=== PATIENT | female | born 1930 | race African-American/Black ===

== ENCOUNTER 2018-04-17 01:44 | Inpatient (IN) | payer MEDICARE ==
[2018-04-17] VITALS (7 sets, daily range): BP systolic 98–165; BP diastolic 54–91
[~2018-04-17] VITALS: Ht 157.5 cm; Wt 38.6 kg
[~2018-04-17 01:44] MED LIST: ATIVAN1 MG ORAL; BUPROPION XL150 MG ORAL; BUPROPION XL300 MG ORAL
--- NOTE | 2018-04-17 01:48 | NUR ---
ED Nurse Note: Patient presents with complaints of syncope wile attempting to move her bowels.
[2018-04-17 02:07] LABS: BASOPHILS % (AUTO) 0.4 % (0.0-2.0); EOSINOPHILS % (AUTO) 0.4 % (0.0-3.0); HEMATOCRIT 51.5 % (37.0-47.0); HEMOGLOBIN 17.2 G/DL (12.0-16.0); LYMPHOCYTES % (AUTO) 26.4 % (20.0-45.0); MEAN CORPUSCULAR VOLUME 98 FL (80-99); MONOCYTES % (AUTO) 5.8 % (1.0-10.0); NEUTROPHILS % (AUTO) 66.9 % (45.0-75.0); PLATELET COUNT 172 K/UL (150-450); RED BLOOD COUNT 5.26 M/UL (4.20-5.40); WHITE BLOOD COUNT 10.8 K/UL (4.8-10.8)
[2018-04-17 02:19] LABS: ANION GAP 10 mmol/L (5-15); BLOOD UREA NITROGEN 33 mg/dL (7-18); CALCIUM 10.2 MG/DL (8.5-10.1); CARBON DIOXIDE 31 MMOL/L (21-32); CHLORIDE 108 MMOL/L (98-107); CREATININE 1.3 MG/DL (0.55-1.30); POTASSIUM 3.7 MMOL/L (3.5-5.1); SODIUM 149 MMOL/L (136-145)
--- NOTE | 2018-04-17 02:20 | NUR ---
ED Nurse Note: Patient restinf comfortably, fluid running, no s/s of acute distress.
[2018-04-17 02:32] LABS: ALANINE AMINOTRANSFERASE 42 U/L (12-78); ALBUMIN 3.4 G/DL (3.4-5.0); ALBUMIN/GLOBULIN RATIO 0.9 (1.0-2.7); ALKALINE PHOSPHATASE 94 U/L (46-116); ASPARTATE AMINO TRANSFERASE 43 U/L (15-37); CKMB 0.9 NG/ML (0.0-3.6); CREATINE KINASE 44 U/L (26-308)
--- NOTE | 2018-04-17 02:35 | NUR ---
ED Nurse Note: ERMD notified regarding pt's critical lab troponin I 0.164
--- NOTE | 2018-04-17 03:02 | NUR ---
ED Nurse Note: urine collected via straight catheter. Patient resting comfortably.
[2018-04-17 03:24] LABS: INR 1.3 (0.9-1.1)
[2018-04-17 03:27] LABS: APPEARANCE,URINE CLEAR; COLOR,URINE BROWN
[2018-04-17 03:28] LABS: BILIRUBIN, URINE NEGATIVE (NEGATIVE); GLUCOSE, URINE (UA) NEGATIVE (NEGATIVE); KETONES,URINE 1+ (NEGATIVE); LEUKOCYTE ESTERASE ,URINE 1+ (NEGATIVE); NITRITE,URINE NEGATIVE (NEGATIVE); PROTEIN,URINE 2+ (NEGATIVE); UROBILINOGEN,URINE 1 MG/DL (0.0-1.0)
--- NOTE | 2018-04-17 03:28 | NUR ---
ED Nurse Note: Patient going down for CT.
--- NOTE | 2018-04-17 03:45 | NUR ---
ED Nurse Note: Patient returned from CT.
[2018-04-17] MEDS ORDERED: MIRTAZAPINE7.5 MG ORAL (03:52)
[2018-04-17] MEDS ORDERED: XARELTO10 MG ORAL (03:52)
[2018-04-17] MEDS ORDERED: HYDROXYCHLOROQ200 M1 PO (03:52)
[2018-04-17] MEDS ORDERED: EXELON4.6 MG TD (03:52)
[2018-04-17] MEDS ORDERED: NAMENDA10 MG ORAL (03:57)
--- NOTE | 2018-04-17 04:30 | Emergency Room Report ---
History of Present Illness General Chief Complaint: Syncope Source: Patient, Family Member, EMS Present Illness HPI 87-year-old female presents ED for evaluation. Patient presents status post syncopal episode. Brought in by EMS. Per EMS patient had syncopal episode while on the toilet tonight. Witnessed by daughter who was with patient during episode. States that patient passed out and she assisted patient to the ground. Upon arrival patient does not remember what happened. Denies chest pain or shortness of breath. States she feels thirsty. Denies fevers chills. Daughter notes patient has history of dementia. No other aggravating relieving factors. Denies any other associated symptoms Allergies: Uncoded Allergies: PENICILLIN (Allergy, Unknown, 04/17/18) Patient History Past Medical History: DM Past Surgical History: none Pertinent Family History: none Social History: Denies: smoking, alcohol use, drug use Last Menstrual Period: 4 decades ago Now: No Immunizations: UTD Reviewed Nursing Documentation: PMH: Agreed; PSxH: Agreed Nursing Documentation-PMH History Of Psychiatric Problem: Yes - dementia Review of Systems All Other Systems: negative except mentioned in HPI Physical Exam Vital Signs Date Time Temp Pulse Resp B/P (MAP) Pulse Ox O2 Delivery O2 Flow Rate FiO2 04/17/18 01:30 98.6 90 22 125/85 100 Room Air Sp02 EP Interpretation: reviewed, normal General Appearance: no apparent distress, alert, GCS 15, non-toxic, thin Head: normocephalic, atraumatic Eyes: bilateral eye normal inspection, bilateral eye PERRL ENT: hearing grossly normal, normal pharynx, no angioedema, normal voice Neck: full range of motion, supple/symm/no masses Respiratory: chest non-tender, lungs clear, normal breath sounds, speaking full sentences Cardiovascular #1: regular rate, rhythm, no edema Cardiovascular #2: 2+ carotid (R), 2+ carotid (L), 2+ radial (R), 2+ radial (L) , 2+ dorsalis pedis (R), 2+ dorsalis pedis (L) Gastrointestinal: normal bowel sounds, non tender, soft, non-distended, no guarding, no rebound Rectal: deferred Genitourinary: normal inspection, no CVA tenderness Musculoskeletal: back normal, gait/station normal, normal range of motion, non- tender Neurologic: alert, oriented x3, responsive, motor strength/tone normal, sensory intact, speech normal Psychiatric: judgement/insight normal, memory normal, mood/affect normal, no suicidal/homicidal ideation Reflexes: 3+ bicep (R), 3+ bicep (L), 3+ tricep (R), 3+ tricep (L), 3+ knee (R) , 3+ knee (L) Skin: normal color, no rash, warm/dry, well hydrated Lymphatic: no adenopathy Medical Decision Making Diagnostic Impression: Primary Impression: Syncope Qualified Codes: R55 - Syncope and collapse Additional Impression: Dehydration ER Course Hospital Course 87-year-old F presents ED s/p syncopal episode. Differential diagnoses include: AK/unstable angina, arrythmia, dehydration, CVA/ TIA Clinical course Patient placed on stretcher. on ekg monitor. After initial history and physical I ordered labs, EKG, chest x-ray, IVFs, CT Brain labs reviewed- no leukocytosis, hemoglobin/hematocrit ok, Na 149, BUN elevated, trop 0.164, UA negative EKG- NSR, no acute ischemic changes interpreted by me Chest x-ray- no acute process CT brain-unremarkable I spoke to daughter on phone. States patient has history of dementia and is on Xarelto for clotting deficiency Case discussed with Dr. Viveros and he agreed to accept the patient to his service for further care and support I. I feel this is a highly complex case requiring extensive working including EKG/Rhythm strip, Xray/CT/US, Blood/urine lab work, repeat exams while in ED, and administration of strong opiates/narcotics for pain control, admission to hospital or close patient follow up. Diagnosis - syncope, dehydration admitted to telemetry in serious condition Labs Test 04/17/18 01:50 04/17/18 01:58 04/17/18 03:00 White Blood Count 10.8 K/UL (4.8-10.8) Red Blood Count 5.26 M/UL (4.20-5.40) Hemoglobin 17.2 G/DL (12.0-16.0) Hematocrit 51.5 % (37.0-47.0) Mean Corpuscular Volume 98 FL (80-99) Mean Corpuscular Hemoglobin 32.6 PG (27.0-31.0) Mean Corpuscular Hemoglobin Concent 33.3 G/DL (32.0-36.0) Red Cell Distribution Width 13.0 % (11.6-14.8) Platelet Count 172 K/UL (150-450) Mean Platelet Volume 6.2 FL (6.5-10.1) Neutrophils (%) (Auto) 66.9 % (45.0-75.0) Lymphocytes (%) (Auto) 26.4 % (20.0-45.0) Monocytes (%) (Auto) 5.8 % (1.0-10.0) Eosinophils (%) (Auto) 0.4 % (0.0-3.0) Basophils (%) (Auto) 0.4 % (0.0-2.0) Sodium Level 149 MMOL/L (136-145) Potassium Level 3.7 MMOL/L (3.5-5.1) Chloride Level 108 MMOL/L (98-107) Carbon Dioxide Level 31 MMOL/L (21-32) Anion Gap 10 mmol/L (5-15) Blood Urea Nitrogen 33 mg/dL (7-18) Creatinine 1.3 MG/DL (0.55-1.30) Estimat Glomerular Filtration Rate mL/min (>60) Glucose Level 114 MG/DL (74-106) Calcium Level 10.2 MG/DL (8.5-10.1) Total Bilirubin 1.0 MG/DL (0.2-1.0) Aspartate Amino Transf (AST/SGOT) 43 U/L (15-37) Alanine Aminotransferase (ALT/SGPT) 42 U/L (12-78) Alkaline Phosphatase 94 U/L (46-116) Total Creatine Kinase 44 U/L (26-308) Creatine Kinase MB 0.9 NG/ML (0.0-3.6) Creatine Kinase MB Relative Index 2.0 Troponin I 0.164 ng/mL (0.000-0.056) Pro-B-Type Natriuretic Peptide 3203 pg/mL (0-125) Total Protein 7.1 G/DL (6.4-8.2) Albumin 3.4 G/DL (3.4-5.0) Globulin 3.7 g/dL Albumin/Globulin Ratio 0.9 (1.0-2.7) Prothrombin Time 13.4 SEC (9.30-11.50) Prothromb Time International Ratio 1.3 (0.9-1.1) Activated Partial Thromboplast Time 30 SEC (23-33) Urine Color Brown Urine Appearance Clear Urine pH 5.0 (4.5-8.0) Urine Specific [place] 1.025 (1.005-1.035) Urine Protein 2+ (NEGATIVE) Urine Glucose (UA) Negative (NEGATIVE) Urine Ketones 1+ (NEGATIVE) Urine Blood 1+ (NEGATIVE) Urine Nitrite Negative (NEGATIVE) Urine Bilirubin Negative (NEGATIVE) Urine Urobilinogen 1 MG/DL (0.0-1.0) Urine Leukocyte Esterase 1+ (NEGATIVE) Urine RBC 0-2 /HPF (0 - 2) Urine WBC 0-2 /HPF (0 - 2) Urine Squamous Epithelial Cells Occasional /LPF Urine Bacteria None /HPF (NONE) EKG Diagnostic Results Rate: normal Rhythm: NSR ST Segments: no acute changes ASA given to the pt in ED: No Rhythm Strip Diag. Results EP Interpretation: yes Rhythm: NSR, no PVC's, no ectopy Chest X-Ray Diagnostic Results Chest X-Ray Diagnostic Results : Chest X-Ray Ordered: Yes # of Views/Limited/Complete: 1 View Indication: Other EP Interpretation: Yes Interpretation: no consolidation, no effusion, no pneumothorax, no acute cardiopulmonary disease Impression: No acute disease Electronically Signed by: Electronically signed by Yash Nava MD CT/MRI/US Diagnostic Results CT/MRI/US Diagnostic Results : Imaging Test Ordered: CT Head Impression no acute process Last Vital Signs Date Time Temp Pulse Resp B/P (MAP) Pulse Ox O2 Delivery O2 Flow Rate FiO2 04/17/18 02:18 98.6 81 21 154/80 100 Room Air Status: improved Disposition: ADMITTED INPATIENT Condition: Serious Referrals: NOT CHOSEN IPA/,REFERRING (PCP) Yash Nava MD Apr 17, 2018 04:30
--- NOTE | 2018-04-17 04:35 | NUR ---
ED Nurse Note: Patient cleared for transport to tele by DIANN, patient is awake and alert, oriented x1. Report was givent to Sharan ADAMS prior to transport.
--- NOTE | 2018-04-17 05:15 | NUR ---
NURSE NOTES: Received pt from ED via gurney. Pt is awake, AOx1. In no acute distress. IV line intact and patent. Placed on cardiac sonographer showing SR. Oriented pt to room and unit. VS stable. Denies any pain or discomfort. Bed in lowest position, call light within reach.
--- NOTE | 2018-04-17 07:20 | NUR ---
HAND-OFF: Report given to BRYAN Vera.
--- NOTE | 2018-04-17 08:55 | NUR ---
NURSE NOTES: Pt in bed in rt lateral in low position, bed alarm on, HOB in semifowlers, IV intact and locked, pt X1 but not aware of date, time or situation, Md Viveros aware of patient on unit, pt knows limitations, pt on room air, bed locked call light at bedside, no s/s of distress or SOB noted.
[2018-04-17] MEDS ORDERED: Mylanta II UD 30ml ORAL PRN (09:15)
[2018-04-17] MEDS ORDERED: Morphine Sulfate 2mg/ml Inj(IV/IM USE ONLY) IVP PRN (09:15)
[2018-04-17] MEDS ORDERED: Nitroglycerin Subl 0.4mg tab SL PRN (09:15)
[2018-04-17] MEDS ORDERED: Albuterol/Ipratropium 3ml neb HHN PRN (09:15)
[2018-04-17] MEDS ORDERED: LORazepam Inj 2mg/ml 1ml IV PRN (09:15)
[2018-04-17] MEDS: Memantine 10mg tab ORAL SCH (10:26)
[2018-04-17] MEDS: Xarelto 15mg tab ORAL SCH (10:27)
--- NOTE | 2018-04-17 11:03 | NUR ---
CASE MANAGEMENT: INITIAL REVIEW 04/17/2018 87 YO F KRISTEN FROM HOME CC: SYNCOPE PMHx: DM. DEMENTIA. SI:SYNCOPE. DEHYDRATION. T 98.6 HR 90 RR 22 B/P 125/85 SATS 100% ON RA NA 149 CL 108 BUN 33 GLU 114 CA 10.2 AST 43 TROPONIN 0.164 BNP 3203 IS: NS BOLUS X1 PATIENT ADMITTED TO TELE 04/17/2018 @ 0300 DCP: PATIENT DISCHARGED TO HOME ONCE MEDICALLY CLEARED. PLAN OF CARE: PT EVAL 2D ECHO CAROTID- VERTEBRAL DUPLEX Addendum: 04/18/18 at 1541 by CHRISTINA MARSH LVN LVN INTERQUAL CRITERIA MET
[2018-04-17] MEDS: BuPROPion XL 300mg tab ORAL SCH (11:11)
[2018-04-17] MEDS ORDERED: HydrALAZINE 25mg tab ORAL PRN (14:45)
--- NOTE | 2018-04-17 14:45 | History and Physical Report ---
DATE OF ADMISSION: 04/17/2018 DATE AND TIME SEEN: On 04/17/2018 at 8 a.m. CONSULTANTS: 1. Mark Bajwa M.D. 2. Amirah Veliz M.D. 3. Yunior Rasheed M.D. 4. Sebastian Mullen M.D. 5. Giorgi Joyner M.D. CHIEF COMPLAINT: Syncope and dehydration. BRIEF HISTORY: This is an 87-year-old female, who lives at home, presents to [facility] with history of possible syncopal episode, with elevated troponin. The patient was admitted to telemetry for further care. Currently, slightly confused in bed. No complaint. REVIEW OF SYSTEMS: No chest pain. No shortness of breath. No nausea, vomiting, or diarrhea. PAST MEDICAL HISTORY: Include, she stated nothing. PAST SURGICAL HISTORY: None. MEDICATIONS: Include Zofran, Tylenol, and IV fluids. ALLERGIES: Penicillin. SOCIAL HISTORY: No smoking. No alcohol. No intravenous drug abuse. FAMILY HISTORY: Noncontributory. PHYSICAL EXAMINATION: GENERAL: Calm in bed, oriented x2, in no acute distress. VITAL SIGNS: Temperature 97, pulse 83, respirations 18, and blood pressure 158/86. CARDIOVASCULAR: No murmur. LUNGS: Distant and clear. ABDOMEN: Bowel sounds positive. Nontender. Nondistended. EXTREMITIES: No cyanosis or edema. NEUROLOGIC: The patient moves all extremities, slightly weak. LABORATORY AND DIAGNOSTIC DATA: Labs at this time show hemoglobin and hematocrit 17/51, otherwise CBC is normal. BMP shows sodium 149, chloride 108, BUN 33, glucose 114. Troponin elevated 0.164. BNP is 3203. INR is 1.3 and PTT is 30. Urinalysis show 1+ leukocyte esterase. ASSESSMENT: 1. Possible syncope. 2. UTI. 3. Dehydration. 4. Elevated troponins. PLAN: 1. Troponin q. 8h. x3. 2. EKG in a.m. 3. Cardiology and Neurology evaluation. 4. Antibiotic per Infectious Disease. 5. PT and Dietary evaluation. 6. CBC and BMP in the morning. Brad Viveros D.O. DR: JESSE JOB#: [id number] CC:
--- NOTE | 2018-04-17 14:49 | Consultation ---
Consult Note Consult Note asked to eval for renal failure and electrolyte imbalance and fluid management Chief Complaint: Syncope 87-year-old female presents ED for evaluation. Patient presents status post syncopal episode. Brought in by EMS. Per EMS patient had syncopal episode while on the toilet tonight. Witnessed by daughter who was with patient during episode. States that patient passed out and she assisted patient to the ground. Upon arrival patient does not remember what happened. Denies chest pain or shortness of breath. States she feels thirsty. Denies fevers chills. Daughter notes patient has history of dementia. No other aggravating relieving factors. Denies any other associated symptoms Allergies: PENICILLIN (Allergy, Unknown, 04/17/18) Past Medical History: DM History Of Psychiatric Problem: Yes - dementia , Psych disease examined data reviewed . Assessment/Plan Dehydration- Syncope - Acute on chronic encephalopathy elevated troponin high Hgb due to hemoconcentration Hydrate- adjust mind altering meds Monitor lytes and renal parameters Gastric mucosa support Per orders Sebastian Mullen MD Apr 17, 2018 14:49
--- NOTE | 2018-04-17 14:50 | Consultation ---
History of Present Illness General Date patient seen: Apr 17, 2018 Chief Complaint: Syncope Present Illness HPI 87-year-old female with hx of DM presented to ED for evaluation of an syncopal episode while on the toilet. Witnessed by daughter who was with patient during episode. She denies chest pain or shortness of breath. she is admitted to telemetry for further work up. Allergies: Coded Allergies: PENICILLINS (Verified Allergy, Unknown, 04/17/18) Uncoded Allergies: PENICILLIN (Allergy, Unknown, 04/17/18) Medication History Scheduled Bupropion Hcl* (Wellbutrin*), 300 MG ORAL DAILY, (Reported) Bupropion Xl* (Bupropion Xl*), 150 MG ORAL Q24H, (Reported) Lorazepam* (Ativan*), 1 MG ORAL BEDTIME, (Reported) Memantine Hcl* (Namenda*), 10 MG ORAL DAILY, (Reported) Mirtazapine* (Mirtazapine*), 7.5 MG ORAL BEDTIME, (Reported) Rivaroxaban (Xarelto*), 15 MG ORAL DAILY, (Reported) Rivastigmine Tartrate (Exelon), 4.6 MG TD DAILY, (Reported) Miscellaneous Medications Hydroxychloroquine Sulfate (Hydroxychloroquine Sulfate), 200 MG PO, (Reported) Patient History Healthcare decision maker Resuscitation status Full Code Advanced Directive on File Past Medical/Surgical History Past Medical/Surgical History: (1) Diabetes mellitus Review of Systems All Other Systems: negative except mentioned in HPI Physical Exam General Appearance: WD/WN, no apparent distress Lines, tubes and drains: peripheral HEENT: normocephalic, atraumatic Neck: non-tender, normal alignment Respiratory/Chest: chest wall non-tender, lungs clear, normal breath sounds Cardiovascular/Chest: normal peripheral pulses Abdomen: normal bowel sounds Last 24 Hour Vital Signs Date Time Temp Pulse Resp B/P (MAP) Pulse Ox O2 Delivery O2 Flow Rate FiO2 04/17/18 12:00 98.3 91 18 121/76 (91) 99 04/17/18 11:43 96.8 04/17/18 10:25 165/91 04/17/18 09:05 Room Air 04/17/18 08:20 98.1 87 16 165/91 (115) 99 04/17/18 07:57 88 04/17/18 05:42 Room Air 04/17/18 05:05 97.5 83 18 158/86 (110) 100 04/17/18 04:35 98.6 81 21 154/80 100 Room Air 04/17/18 02:18 98.6 81 21 154/80 100 Room Air 04/17/18 01:59 98.6 75 22 125/85 100 Room Air 04/17/18 01:30 98.6 90 22 125/85 100 Room Air Intake and Output 04/16/18 04/17/18 19:00 07:00 Intake Total 0 ml Balance 0 ml Intake Oral 0 ml Laboratory Tests Test 04/17/18 01:50 04/17/18 01:58 04/17/18 03:00 White Blood Count 10.8 K/UL (4.8-10.8) Red Blood Count 5.26 M/UL (4.20-5.40) Hemoglobin 17.2 G/DL (12.0-16.0) H Hematocrit 51.5 % (37.0-47.0) H Mean Corpuscular Volume 98 FL (80-99) Mean Corpuscular Hemoglobin 32.6 PG (27.0-31.0) H Mean Corpuscular Hemoglobin Concent 33.3 G/DL (32.0-36.0) Red Cell Distribution Width 13.0 % (11.6-14.8) Platelet Count 172 K/UL (150-450) Mean Platelet Volume 6.2 FL (6.5-10.1) L Neutrophils (%) (Auto) 66.9 % (45.0-75.0) Lymphocytes (%) (Auto) 26.4 % (20.0-45.0) Monocytes (%) (Auto) 5.8 % (1.0-10.0) Eosinophils (%) (Auto) 0.4 % (0.0-3.0) Basophils (%) (Auto) 0.4 % (0.0-2.0) Sodium Level 149 MMOL/L (136-145) H Potassium Level 3.7 MMOL/L (3.5-5.1) Chloride Level 108 MMOL/L (98-107) H Carbon Dioxide Level 31 MMOL/L (21-32) Anion Gap 10 mmol/L (5-15) Blood Urea Nitrogen 33 mg/dL (7-18) H Creatinine 1.3 MG/DL (0.55-1.30) Estimat Glomerular Filtration Rate mL/min (>60) Glucose Level 114 MG/DL (74-106) H Calcium Level 10.2 MG/DL (8.5-10.1) H Total Bilirubin 1.0 MG/DL (0.2-1.0) Aspartate Amino Transf (AST/SGOT) 43 U/L (15-37) H Alanine Aminotransferase (ALT/SGPT) 42 U/L (12-78) Alkaline Phosphatase 94 U/L (46-116) Total Creatine Kinase 44 U/L (26-308) Creatine Kinase MB 0.9 NG/ML (0.0-3.6) Creatine Kinase MB Relative Index 2.0 Troponin I 0.164 ng/mL (0.000-0.056) Pro-B-Type Natriuretic Peptide 3203 pg/mL (0-125) H Total Protein 7.1 G/DL (6.4-8.2) Albumin 3.4 G/DL (3.4-5.0) Globulin 3.7 g/dL Albumin/Globulin Ratio 0.9 (1.0-2.7) L Prothrombin Time 13.4 SEC (9.30-11.50) H Prothromb Time International Ratio 1.3 (0.9-1.1) H Activated Partial Thromboplast Time 30 SEC (23-33) Urine Color Brown Urine Appearance Clear Urine pH 5.0 (4.5-8.0) Urine Specific [place] 1.025 (1.005-1.035) Urine Protein 2+ (NEGATIVE) H Urine Glucose (UA) Negative (NEGATIVE) Urine Ketones 1+ (NEGATIVE) H Urine Blood 1+ (NEGATIVE) H Urine Nitrite Negative (NEGATIVE) Urine Bilirubin Negative (NEGATIVE) Urine Urobilinogen 1 MG/DL (0.0-1.0) H Urine Leukocyte Esterase 1+ (NEGATIVE) H Urine RBC 0-2 /HPF (0 - 2) Urine WBC 0-2 /HPF (0 - 2) Urine Squamous Epithelial Cells Occasional /LPF Urine Bacteria None /HPF (NONE) Height (Feet): 5 Height (Inches): 2.00 Weight (Pounds): 85 Medications Current Medications Medications (Trade) Dose Ordered Sig/Zan Route PRN Reason Start Time Stop Time Status Last Admin Dose Admin Acetaminophen (Tylenol) 650 mg Q4H PRN ORAL T>100.5 04/17/18 09:15 05/17/18 09:14 04/17/18 11:13 Al Hydroxide/Mg Hydroxide (Mylanta II) 30 ml Q6H PRN ORAL dyspepsia 04/17/18 09:15 05/17/18 09:14 Albuterol/ Ipratropium (Albuterol/ Ipratropium) 3 ml Q4H PRN HHN Shortness of Breath 04/17/18 09:15 04/22/18 09:14 Bupropion HCl (Wellbutrin XL) 300 mg DAILY ORAL 04/17/18 11:00 05/17/18 10:59 04/17/18 11:11 Clonidine HCl (Catapres Tab) 0.1 mg Q4H PRN ORAL SBP > 160mmHg 04/17/18 09:15 05/17/18 09:14 04/17/18 10:25 Dextrose (Dextrose 50%) 25 ml Q30M PRN IV Hypoglycemia 04/17/18 09:15 05/17/18 09:14 Dextrose (Dextrose 50%) 50 ml Q30M PRN IV Hypoglycemia 04/17/18 09:15 05/17/18 09:14 Lorazepam (Ativan 2mg/ml 1ml) 0.5 mg Q4H PRN IV For Anxiety 04/17/18 09:15 04/24/18 09:14 Memantine (Namenda) 10 mg DAILY ORAL 04/17/18 09:00 05/17/18 08:59 04/17/18 10:26 Mirtazapine (Remeron) 7.5 mg BEDTIME ORAL 04/17/18 21:00 05/17/18 20:59 Morphine Sulfate (Morphine Sulfate) 1 mg Q4H PRN IVP Severe Pain (Pain Scale 7-10) 04/17/18 09:15 04/24/18 09:14 Nitroglycerin (Ntg) 0.4 mg Q5M X 3 DOSES PRN SL Prn Chest Pain 04/17/18 09:15 05/17/18 09:14 Ondansetron HCl (Zofran) 4 mg Q6H PRN IVP Nausea & Vomiting 04/17/18 09:15 05/17/18 09:14 Polyethylene Glycol (Miralax) 17 gm HSPRN PRN ORAL Constipation 04/17/18 21:00 05/17/18 20:59 Rivaroxaban (Xarelto) 15 mg DAILY ORAL 04/17/18 10:00 05/17/18 09:59 04/17/18 10:27 Temazepam (Restoril) 15 mg HSPRN PRN ORAL Insomnia 04/17/18 21:00 04/24/18 20:59 Assessment/Plan Problem List: (1) ACS (acute coronary syndrome) ICD Codes: I24.9 - Acute ischemic heart disease, unspecified SNOMED: 198743854 (2) Hypernatremia ICD Codes: E87.0 - Hyperosmolality and hypernatremia SNOMED: 13255908 (3) Acute encephalopathy ICD Codes: G93.40 - Encephalopathy, unspecified SNOMED: 24155016, 842664605 (4) Diabetes mellitus ICD Codes: E11.9 - Type 2 diabetes mellitus without complications SNOMED: 95066762 Assessment/Plan echo cardiogram serial troponin, keep telemetry watch Na IV fluids Amirah Veliz MD Apr 17, 2018 14:50
[2018-04-17] MEDS: Nitroglycerin Patch 0.4mg TDERMAL SCH (15:32)
[2018-04-17] MEDS: D5 1/2NS w/KCl 20mEq 1,000 ML IV SCH (15:33)
--- NOTE | 2018-04-17 16:28 | NUR ---
NURSE NOTES: Daughter Memo Cavazos asking for SNF placement and gave copies of Power of [employer].
--- NOTE | 2018-04-17 19:15 | NUR ---
NURSE NOTES: Report received from Monae Hills RN. Pt is resting in bed w/o distress. Bed alarm on, bed in lowest position, side rails up x2, and breaks are engaged. IV is leaking, new IV insertion will be given later. Endorsed that pt had no urine out since 434. Bladder has not been scanned. Will scan soon. Will follow plans of care. Addendum: 04/18/18 at 0306 by ORIANA RODRIGUEZ RN At 2100, 2300 on 04-17-2018, and now, Pt refused to have IV insertion by saying "Don't bother me." and very combative to the care. A&O x1, confused. Pt will be reaccessed later. Addendum: 04/18/18 at 0520 by ORIANA RODRIGUEZ RN Tele monitor #[id number] was off from pt and retuned to station.
--- NOTE | 2018-04-17 19:22 | NUR ---
HAND-OFF: Report given to sonali Carrillo Rn.
[2018-04-17] MEDS ORDERED: Miralax 17gm pkt ORAL PRN (21:00)
--- NOTE | 2018-04-17 22:30 | NUR ---
NURSE NOTES: Pt has 224ml per bladder scanner. Called and left message to Dr. Viveros at , #0 regarding no urine out put since 429 until 2229, and 224ml per bladder scanner. Awaiting call back. Addendum: 04/18/18 at 0008 by ORIANA RODRIGUEZ RN Second attempted call made to Dr. Viveros at 2330, 04-17-2018, awaiting call back. Addendum: 04/18/18 at 0048 by ORIANA RODRIGUEZ RN Called and left message to Dr. Veliz at , regarding no urine out put since 429 until now, and 224ml per bladder scanner. Awaiting call back. Addendum: 04/18/18 at 0138 by ORIANA RODRIGUEZ RN Pt is wet, bladder scan showed 78ml. Pt is cleaned, dried, and repositioned. Will continue to monitor. Addendum: 04/18/18 at 0241 by ORIANA RODRIGUEZ RN Dr. Viveros called back, and update was given to him. NNO.
[2018-04-18] VITALS: BP 100/66
[2018-04-18 04:00] VITALS: BP 149/80
[2018-04-18] MEDS: D5 1/2NS w/KCl 20mEq 1,000 ML IV SCH ×2 (04:50→16:11)
--- NOTE | 2018-04-18 04:50 | NUR ---
NURSE NOTES: New IV was given, 22G at LFA, D5 1/2 NS w/ KCL 20 meq is running at 75/H. Addendum: 04/18/18 at 0521 by ORIANA RODRIGUEZ RN Pt's Room change to 211-2.
--- NOTE | 2018-04-18 07:10 | NUR ---
HAND-OFF: Report given to BRYAN Mcfadden. Observed that pt is touching and scratching the IV site and the IV site is swollen and IV insertion removed from LFA, no bleeding. The arm is elevated by pillow support. Pt refused to have new IV insertion at this time.Pt is confused, A&O x1.
--- NOTE | 2018-04-18 07:15 | NUR ---
NURSE NOTES: Report received from Vanessa ADAMS.Pt resting in bed awake,confused,noted no distress or discomfort,IV site to LAC infiltrated and swollen, IV removed,skin warm and dry,pt incontinent of urine,SR up x3 HOB elevated bed lock in lowest position,bed alarm on,will continue with plans of care.
[2018-04-18 08:00] VITALS: BP_SYST 149; BP_SYST 172; BP_DIAS 80; BP_DIAS 92
[2018-04-18] MEDS: Xarelto 15mg tab ORAL SCH (09:09)
[2018-04-18] MEDS: Aspirin Baby 81mg ORAL SCH (09:10)
[2018-04-18] MEDS: Memantine 10mg tab ORAL SCH (09:11)
[2018-04-18] MEDS: BuPROPion XL 300mg tab ORAL SCH (09:12)
--- NOTE | 2018-04-18 09:36 | NUR ---
REHAB MED PT NOTE CONSULT BDUDY GARCIA, PATIENT REFUSING CONTINUED CARE, PATIENT STATES SHE IS FINE AND NEEDS NO HELP. RECOMMEND SNF AT [place]. NO FURTHER NEEDS JESSICA REY PT DPT Addendum: 04/18/18 at 0936 by JESSICA REY PT Amended: Links added.
--- NOTE | 2018-04-18 10:28 | Cardiology Report ---
APPROVED REPORT EXAM: Two-dimensional and M-mode echocardiogram with Doppler and color Doppler. INDICATION Left ventricular function M-Mode DIMENSIONS IVSd1.5 (0.7-1.1cm)Left Atrium (MM)4.0 (1.6-4.0cm) LVDd2.8 (3.5-5.6cm)Aortic Root3.1 (2.0-3.7cm) PWd0.8 (0.7-1.1cm)Aortic Cusp Exc.1.6 (1.5-2.0cm) LVDs2.0 (2.5-4.0cm) PWs1.5 cm Normal left ventricular chamber size, systolic function and wall motion. Left ventricular ejection fraction estimated to be 55 %. Mild left ventricular hypertrophy. No evidence of pericardial effusion. All other cardiac chamber sizes are within normal limits. Focal aortic valve sclerosis with adequate cusp excursion. Mildly thickened mitral valve leaflets with normal excursion. Mild mitral annulus and aortic root calcification. Pulmonic valve not well visualized. Normal tricuspid valve structure. IVC is normal in size with physiological collapse. Probable pacemaker wire present in the right side chambers. A color flow and spectral Doppler study was performed and revealed: Mild aortic insufficiency. Trace mitral regurgitation. Mitral diastolic velocities suggest mild left ventricular diastolic dysfunction (Grade I). Moderate tricuspid regurgitation. Tricuspid systolic velocities suggests peak right ventricular systolic pressure of 44 mmHg, consistent with mild pulmonary hypertension. No pulmonic regurgitation present.
[2018-04-18 12:00] VITALS: BP 121/62
[2018-04-18 12:24] LABS: BASOPHILS % (AUTO) 0.8 % (0.0-2.0); HEMATOCRIT 46.8 % (37.0-47.0); HEMOGLOBIN 15.4 G/DL (12.0-16.0); LYMPHOCYTES % (AUTO) 31.5 % (20.0-45.0); MEAN CORPUSCULAR VOLUME 98 FL (80-99); NEUTROPHILS % (AUTO) 60.7 % (45.0-75.0); PLATELET COUNT 133 K/UL (150-450); RED BLOOD COUNT 4.77 M/UL (4.20-5.40); RED CELL DISTRIBUTION WIDTH 12.9 % (11.6-14.8); WHITE BLOOD COUNT 9.4 K/UL (4.8-10.8)
--- NOTE | 2018-04-18 12:25 | Pulmonology Progress Note ---
Assessment/Plan Problems: (1) ACS (acute coronary syndrome) (2) Hypernatremia (3) Acute encephalopathy (4) Diabetes mellitus Assessment/Plan doing better, not talking echo reviewed, normal EF Na slightly high continue IV fluids calorie count. dvt prophylaxis. Subjective ROS Limited/Unobtainable: No Constitutional: Reports: no symptoms HEENT: Repors: no symptoms Respiratory: Reports: no symptoms Allergies: Coded Allergies: PENICILLINS (Verified Allergy, Unknown, 04/17/18) Uncoded Allergies: PENICILLIN (Allergy, Unknown, 04/17/18) Objective Last 24 Hour Vital Signs Date Time Temp Pulse Resp B/P (MAP) Pulse Ox O2 Delivery O2 Flow Rate FiO2 04/18/18 04:00 97.0 78 20 149/80 (103) 94 04/18/18 00:00 98.0 84 20 100/66 (77) 97 04/17/18 21:00 Room Air Room Air 04/17/18 20:46 76 18 Room Air 21 04/17/18 20:00 97.5 82 20 98/54 (69) 97 04/17/18 16:00 97.9 77 18 99/54 (69) 98 04/17/18 15:35 70 04/17/18 15:32 121/76 Intake and Output 04/17/18 04/18/18 18:59 06:59 Intake Total 600 ml 0 ml Balance 600 ml 0 ml Intake Oral 600 ml 0 ml # Voids 2 3 Objective doing better, not talking Laboratory Tests 04/18/18 12:10: White Blood Count [Pending], Red Blood Count [Pending], Hemoglobin [Pending], Hematocrit [Pending], Mean Corpuscular Volume [Pending], Mean Corpuscular Hemoglobin [Pending], Mean Corpuscular Hemoglobin Concent [Pending], Red Cell Distribution Width [Pending], Platelet Count [Pending], Mean Platelet Volume [ Pending], Neutrophils (%) (Auto) [Pending], Lymphocytes (%) (Auto) [Pending], Monocytes (%) (Auto) [Pending], Eosinophils (%) (Auto) [Pending], Basophils (%) (Auto) [Pending], Prothrombin Time [Pending], Prothromb Time International Ratio [Pending], Activated Partial Thromboplast Time [Pending], Sodium Level [ Pending], Potassium Level [Pending], Chloride Level [Pending], Carbon Dioxide Level [Pending], Blood Urea Nitrogen [Pending], Creatinine [Pending], Estimat Glomerular Filtration Rate [Pending], Glucose Level [Pending], Hemoglobin A1c [ Pending], Uric Acid [Pending], Calcium Level [Pending], Phosphorus Level [ Pending], Magnesium Level [Pending], Total Bilirubin [Pending], Gamma Glutamyl Transpeptidase [Pending], Aspartate Amino Transf (AST/SGOT) [Pending], Alanine Aminotransferase (ALT/SGPT) [Pending], Alkaline Phosphatase [Pending], Total Creatine Kinase [Pending], Troponin I [Pending], Total Protein [Pending], Albumin [Pending], Globulin [Pending], Triglycerides Level [Pending], Cholesterol Level [Pending], LDL Cholesterol [Pending], HDL Cholesterol [Pending ], Cholesterol/HDL Ratio [Pending], Vitamin B12 Level [Pending], Folate [Pending ], Thyroid Stimulating Hormone (TSH) [Pending] Current Medications Medications (Trade) Dose Ordered Sig/Zan Route PRN Reason Start Time Stop Time Status Last Admin Dose Admin Acetaminophen (Tylenol) 650 mg Q4H PRN ORAL T>100.5 04/17/18 09:15 05/17/18 09:14 04/17/18 11:13 Albuterol/ Ipratropium (Albuterol/ Ipratropium) 3 ml Q4H PRN HHN Shortness of Breath 04/17/18 09:15 04/22/18 09:14 Aspirin (ASA) 81 mg DAILY ORAL 04/18/18 09:00 05/18/18 08:59 04/18/18 09:10 Bupropion HCl (Wellbutrin XL) 300 mg DAILY ORAL 04/17/18 11:00 05/17/18 10:59 04/18/18 09:12 Dextrose (Dextrose 50%) 25 ml Q30M PRN IV Hypoglycemia 04/17/18 09:15 05/17/18 09:14 Dextrose (Dextrose 50%) 50 ml Q30M PRN IV Hypoglycemia 04/17/18 09:15 05/17/18 09:14 Dextrose/ Electrolytes 1,000 ml @ 75 mls/hr [id number] IV 04/17/18 15:30 05/17/18 15:29 04/17/18 15:33 Famotidine (Pepcid) 20 mg BID ORAL 04/17/18 18:00 05/17/18 17:59 04/18/18 09:08 Hydralazine HCl (Apresoline) 25 mg Q4H PRN ORAL sbp > 160mmHg 04/17/18 14:45 05/17/18 14:44 Lorazepam (Ativan 2mg/ml 1ml) 0.5 mg Q4H PRN IV For Anxiety 04/17/18 09:15 04/24/18 09:14 Memantine (Namenda) 10 mg DAILY ORAL 04/17/18 09:00 05/17/18 08:59 04/18/18 09:11 Mirtazapine (Remeron) 7.5 mg BEDTIME ORAL 04/17/18 21:00 05/17/18 20:59 04/17/18 22:08 Morphine Sulfate (Morphine Sulfate) 1 mg Q4H PRN IVP Severe Pain (Pain Scale 7-10) 04/17/18 09:15 04/24/18 09:14 Nitroglycerin (Ntg) 0.4 mg Q5M X 3 DOSES PRN SL Prn Chest Pain 04/17/18 09:15 05/17/18 09:14 Nitroglycerin (Ntg) 1 patch Q24H TDERMAL 04/17/18 15:00 05/17/18 14:59 04/17/18 15:32 Ondansetron HCl (Zofran) 4 mg Q6H PRN IVP Nausea & Vomiting 04/17/18 09:15 05/17/18 09:14 Polyethylene Glycol (Miralax) 17 gm HSPRN PRN ORAL Constipation 04/17/18 21:00 05/17/18 20:59 Rivaroxaban (Xarelto) 15 mg DAILY ORAL 04/17/18 10:00 05/17/18 09:59 04/18/18 09:09 Temazepam (Restoril) 15 mg HSPRN PRN ORAL Insomnia 04/17/18 21:00 04/24/18 20:59 Amirah Veliz MD Apr 18, 2018 12:25
[2018-04-18 12:30] LABS: INR 1.4 (0.9-1.1)
[2018-04-18 12:42] LABS: CREATINE KINASE 34 U/L (26-308); GAMMA GLUTAMYL TRANSPEPTIDASE 27 U/L (5-85); PHOSPHORUS 2.4 MG/DL (2.5-4.9)
[2018-04-18 12:52] LABS: ALANINE AMINOTRANSFERASE 42 U/L (12-78); ALBUMIN 3.1 G/DL (3.4-5.0); ALKALINE PHOSPHATASE 82 U/L (46-116); ANION GAP 6 mmol/L (5-15); ASPARTATE AMINO TRANSFERASE 32 U/L (15-37); BLOOD UREA NITROGEN 26 mg/dL (7-18); CALCIUM 9.5 MG/DL (8.5-10.1); CARBON DIOXIDE 32 MMOL/L (21-32); CHLORIDE 109 MMOL/L (98-107); CHOLESTEROL 183 MG/DL (< 200); CREATININE 0.9 MG/DL (0.55-1.30); HDL CHOLESTEROL 46 MG/DL (40-60); POTASSIUM 3.9 MMOL/L (3.5-5.1); SODIUM 147 MMOL/L (136-145); TRIGLYCERIDES 108 MG/DL (30-150)
--- NOTE | 2018-04-18 13:18 | NUR ---
RD ASSESSMENT & RECOMMENDATIONS SEE CARE ACTIVITY FOR COMPLETE ASSESSMENT DAILY ESTIMATED NEEDS: Needs based on Underweight w/ wasting, cardiac, advanced age 36.5 30-40 kcals/kg 4546-2154 total kcals 1-1.5 g protein/kg 37-55 g total protein 25-30ml/kcal mL/kg 913-1095 total fluid mLs NUTRITION DIAGNOSIS: Increased kcal and protein needs r/t underweight status and wasting as evidenced by pt moderate to severe wasting, 73% of [place] Body Weight, BMI underweight per guidelines. CURRENT DIET: Regular puree PO DIET RECOMMENDATIONS: Liberalized/ Regular diet (texture per NETWORK PROGRAMMER) ENTERAL NUTRITION RECOMMENDATIONS: * Consult RD if part of POC * ADDITIONAL RECOMMENDATIONS: 1) ENSURE BID in b/w meals w/ variable PO 2) F/up w/ NETWORK PROGRAMMER for texture 3) F/up w/ Kcal count, need for non oral feeds 4) Weekly weight on CALIBRATED bed scale as pt is underweight
--- NOTE | 2018-04-18 13:36 | Consultation ---
History of Present Illness General Date patient seen: Apr 18, 2018 Chief Complaint: Syncope Present Illness HPI 87 y/o F with hx DM2, Dementia presents to ED on 04/17 with a syncopal episode while on the toilet (this was witnessed by her daughter and she assisted pt to the ground). Denied CP, SOB, f/c,n/v/d upon admission Allergies: Coded Allergies: PENICILLINS (Verified Allergy, Unknown, 04/17/18) Uncoded Allergies: PENICILLIN (Allergy, Unknown, 04/17/18) Medication History Scheduled Bupropion Hcl* (Wellbutrin*), 300 MG ORAL DAILY, (Reported) Bupropion Xl* (Bupropion Xl*), 150 MG ORAL Q24H, (Reported) Lorazepam* (Ativan*), 1 MG ORAL BEDTIME, (Reported) Memantine Hcl* (Namenda*), 10 MG ORAL DAILY, (Reported) Mirtazapine* (Mirtazapine*), 7.5 MG ORAL BEDTIME, (Reported) Rivaroxaban (Xarelto*), 15 MG ORAL DAILY, (Reported) Rivastigmine Tartrate (Exelon), 4.6 MG TD DAILY, (Reported) Miscellaneous Medications Hydroxychloroquine Sulfate (Hydroxychloroquine Sulfate), 200 MG PO, (Reported) Patient History Healthcare decision maker Resuscitation status Full Code Advanced Directive on File Patient History Narrative Pmhx: as above Shx: Denies: smoking, alcohol use, drug use Fhx: non contributory Review of Systems All Other Systems: negative except mentioned in HPI Physical Exam Physical Exam Narrative GENERAL: Calm in bed, oriented x2, in no acute distress. CARDIOVASCULAR: No murmur. LUNGS: Distant and clear. ABDOMEN: Bowel sounds positive. Nontender. Nondistended. EXTREMITIES: No cyanosis or edema. NEUROLOGIC: The patient moves all extremities, slightly weak. Last 24 Hour Vital Signs Date Time Temp Pulse Resp B/P (MAP) Pulse Ox O2 Delivery O2 Flow Rate FiO2 04/18/18 12:00 97.5 80 16 121/62 (81) 04/18/18 09:00 Room Air Room Air 04/18/18 08:00 97.8 76 18 172/92 (118) 04/18/18 08:00 97.0 78 20 149/80 (103) 94 04/18/18 04:00 97.0 78 20 149/80 (103) 94 04/18/18 00:00 98.0 84 20 100/66 (77) 97 04/17/18 21:00 Room Air Room Air 04/17/18 20:46 76 18 Room Air 21 04/17/18 20:00 97.5 82 20 98/54 (69) 97 04/17/18 16:00 97.9 77 18 99/54 (69) 98 04/17/18 15:35 70 04/17/18 15:32 121/76 Intake and Output 04/17/18 04/18/18 18:59 06:59 Intake Total 600 ml 0 ml Balance 600 ml 0 ml Intake Oral 600 ml 0 ml # Voids 2 3 Laboratory Tests Test 04/18/18 12:10 White Blood Count 9.4 K/UL (4.8-10.8) Red Blood Count 4.77 M/UL (4.20-5.40) Hemoglobin 15.4 G/DL (12.0-16.0) Hematocrit 46.8 % (37.0-47.0) Mean Corpuscular Volume 98 FL (80-99) Mean Corpuscular Hemoglobin 32.2 PG (27.0-31.0) H Mean Corpuscular Hemoglobin Concent 32.9 G/DL (32.0-36.0) Red Cell Distribution Width 12.9 % (11.6-14.8) Platelet Count 133 K/UL (150-450) L Mean Platelet Volume 6.3 FL (6.5-10.1) L Neutrophils (%) (Auto) 60.7 % (45.0-75.0) Lymphocytes (%) (Auto) 31.5 % (20.0-45.0) Monocytes (%) (Auto) 6.0 % (1.0-10.0) Eosinophils (%) (Auto) 1.0 % (0.0-3.0) Basophils (%) (Auto) 0.8 % (0.0-2.0) Prothrombin Time 14.2 SEC (9.30-11.50) H Prothromb Time International Ratio 1.4 (0.9-1.1) H Activated Partial Thromboplast Time 32 SEC (23-33) Sodium Level 147 MMOL/L (136-145) H Potassium Level 3.9 MMOL/L (3.5-5.1) Chloride Level 109 MMOL/L (98-107) H Carbon Dioxide Level 32 MMOL/L (21-32) Anion Gap 6 mmol/L (5-15) Blood Urea Nitrogen 26 mg/dL (7-18) H Creatinine 0.9 MG/DL (0.55-1.30) Estimat Glomerular Filtration Rate mL/min (>60) Glucose Level 80 MG/DL (74-106) Hemoglobin A1c 5.3 % (4.3-6.0) Uric Acid 5.0 MG/DL (2.6-7.2) Calcium Level 9.5 MG/DL (8.5-10.1) Phosphorus Level 2.4 MG/DL (2.5-4.9) L Magnesium Level 1.9 MG/DL (1.8-2.4) Total Bilirubin 1.0 MG/DL (0.2-1.0) Gamma Glutamyl Transpeptidase 27 U/L (5-85) Aspartate Amino Transf (AST/SGOT) 32 U/L (15-37) Alanine Aminotransferase (ALT/SGPT) 42 U/L (12-78) Alkaline Phosphatase 82 U/L (46-116) Total Creatine Kinase 34 U/L (26-308) Troponin I 0.121 ng/mL (0.000-0.056) Total Protein 6.2 G/DL (6.4-8.2) L Albumin 3.1 G/DL (3.4-5.0) L Globulin 3.1 g/dL Albumin/Globulin Ratio 1.0 (1.0-2.7) Triglycerides Level 108 MG/DL (30-150) Cholesterol Level 183 MG/DL (< 200) LDL Cholesterol 106 mg/dL (<100) H HDL Cholesterol 46 MG/DL (40-60) Cholesterol/HDL Ratio 4.0 (3.3-4.4) Vitamin B12 Level Pending Folate Pending Thyroid Stimulating Hormone (TSH) 1.421 uiU/mL (0.358-3.740) Height (Feet): 5 Height (Inches): 2.00 Weight (Pounds): 85 Medications Current Medications Medications (Trade) Dose Ordered Sig/Zan Route PRN Reason Start Time Stop Time Status Last Admin Dose Admin Acetaminophen (Tylenol) 650 mg Q4H PRN ORAL T>100.5 04/17/18 09:15 05/17/18 09:14 04/17/18 11:13 Albuterol/ Ipratropium (Albuterol/ Ipratropium) 3 ml Q4H PRN HHN Shortness of Breath 04/17/18 09:15 04/22/18 09:14 Aspirin (ASA) 81 mg DAILY ORAL 04/18/18 09:00 05/18/18 08:59 04/18/18 09:10 Bupropion HCl (Wellbutrin XL) 300 mg DAILY ORAL 04/17/18 11:00 05/17/18 10:59 04/18/18 09:12 Dextrose (Dextrose 50%) 25 ml Q30M PRN IV Hypoglycemia 04/17/18 09:15 05/17/18 09:14 Dextrose (Dextrose 50%) 50 ml Q30M PRN IV Hypoglycemia 04/17/18 09:15 05/17/18 09:14 Dextrose/ Electrolytes 1,000 ml @ 75 mls/hr [id number] IV 04/17/18 15:30 05/17/18 15:29 04/17/18 15:33 Famotidine (Pepcid) 20 mg BID ORAL 04/17/18 18:00 05/17/18 17:59 04/18/18 09:08 Hydralazine HCl (Apresoline) 25 mg Q4H PRN ORAL sbp > 160mmHg 04/17/18 14:45 05/17/18 14:44 Lorazepam (Ativan 2mg/ml 1ml) 0.5 mg Q4H PRN IV For Anxiety 04/17/18 09:15 04/24/18 09:14 Memantine (Namenda) 10 mg DAILY ORAL 04/17/18 09:00 05/17/18 08:59 04/18/18 09:11 Mirtazapine (Remeron) 7.5 mg BEDTIME ORAL 04/17/18 21:00 05/17/18 20:59 04/17/18 22:08 Morphine Sulfate (Morphine Sulfate) 1 mg Q4H PRN IVP Severe Pain (Pain Scale 7-10) 04/17/18 09:15 04/24/18 09:14 Nitroglycerin (Ntg) 0.4 mg Q5M X 3 DOSES PRN SL Prn Chest Pain 04/17/18 09:15 05/17/18 09:14 Nitroglycerin (Ntg) 1 patch Q24H TDERMAL 04/17/18 15:00 05/17/18 14:59 04/17/18 15:32 Ondansetron HCl (Zofran) 4 mg Q6H PRN IVP Nausea & Vomiting 04/17/18 09:15 05/17/18 09:14 Polyethylene Glycol (Miralax) 17 gm HSPRN PRN ORAL Constipation 04/17/18 21:00 05/17/18 20:59 Rivaroxaban (Xarelto) 15 mg DAILY ORAL 04/17/18 10:00 05/17/18 09:59 04/18/18 09:09 Temazepam (Restoril) 15 mg HSPRN PRN ORAL Insomnia 04/17/18 21:00 04/24/18 20:59 Assessment/Plan Assessment/Plan Abx: NOne Assessment: Syncopal episode, likely due to dehydration (+ RANJEET, hemoconcentration) Afebrile NO leukocytosis- no infectious process at present -u/a neg DM2 Dementia Plan: -COntinue to monitor off abx -f/u cx -Monitor CBC/CMP, temperatures -aspiration precautions Thank you for this consultation. Will continue to follow along with you. Discussed with Radha Monsivais M.D. Apr 18, 2018 13:36
--- NOTE | 2018-04-18 13:49 | General Progress Note ---
Assessment/Plan Problem List: (1) UTI (urinary tract infection) ICD Codes: N39.0 - Urinary tract infection, site not specified SNOMED: 18870268 (2) Dehydration ICD Codes: E86.0 - Dehydration SNOMED: 98071679 (3) Syncope ICD Codes: R55 - Syncope and collapse SNOMED: 434190053 Qualifiers: Qualified Codes: R55 - Syncope and collapse Status: unchanged Assessment/Plan pt diet abx neuro psyc cardio eval cbc bmp am Subjective Constitutional: Reports: weakness Allergies: Coded Allergies: PENICILLINS (Verified Allergy, Unknown, 04/17/18) Uncoded Allergies: PENICILLIN (Allergy, Unknown, 04/17/18) All Systems: reviewed and negative except above Subjective calm in bed sl confused Objective Last 24 Hour Vital Signs Date Time Temp Pulse Resp B/P (MAP) Pulse Ox O2 Delivery O2 Flow Rate FiO2 04/18/18 12:00 97.5 80 16 121/62 (81) 04/18/18 09:00 Room Air Room Air 04/18/18 08:00 97.8 76 18 172/92 (118) 04/18/18 08:00 97.0 78 20 149/80 (103) 94 04/18/18 04:00 97.0 78 20 149/80 (103) 94 04/18/18 00:00 98.0 84 20 100/66 (77) 97 04/17/18 21:00 Room Air Room Air 04/17/18 20:46 76 18 Room Air 21 04/17/18 20:00 97.5 82 20 98/54 (69) 97 04/17/18 16:00 97.9 77 18 99/54 (69) 98 04/17/18 15:35 70 04/17/18 15:32 121/76 Intake and Output 04/17/18 04/18/18 18:59 06:59 Intake Total 600 ml 0 ml Balance 600 ml 0 ml Intake Oral 600 ml 0 ml # Voids 2 3 Laboratory Tests 04/18/18 12:10: White Blood Count 9.4, Red Blood Count 4.77, Hemoglobin 15.4, Hematocrit 46.8, Mean Corpuscular Volume 98, Mean Corpuscular Hemoglobin 32.2H, Mean Corpuscular Hemoglobin Concent 32.9, Red Cell Distribution Width 12.9, Platelet Count 133L, Mean Platelet Volume 6.3L, Neutrophils (%) (Auto) 60.7, Lymphocytes (%) (Auto) 31.5, Monocytes (%) (Auto) 6.0, Eosinophils (%) (Auto) 1.0, Basophils (%) (Auto ) 0.8, Prothrombin Time 14.2H, Prothromb Time International Ratio 1.4H, Activated Partial Thromboplast Time 32, Sodium Level 147H, Potassium Level 3.9, Chloride Level 109H, Carbon Dioxide Level 32, Anion Gap 6, Blood Urea Nitrogen 26H, Creatinine 0.9, Estimat Glomerular Filtration Rate , Glucose Level 80, Hemoglobin A1c 5.3, Uric Acid 5.0, Calcium Level 9.5, Phosphorus Level 2.4L, Magnesium Level 1.9, Total Bilirubin 1.0, Gamma Glutamyl Transpeptidase 27, Aspartate Amino Transf (AST/SGOT) 32, Alanine Aminotransferase (ALT/SGPT) 42, Alkaline Phosphatase 82, Total Creatine Kinase 34, Troponin I 0.121H, Total Protein 6.2L, Albumin 3.1L, Globulin 3.1, Albumin/Globulin Ratio 1.0, Triglycerides Level 108, Cholesterol Level 183, LDL Cholesterol 106H, HDL Cholesterol 46, Cholesterol/HDL Ratio 4.0, Vitamin B12 Level 641, Folate 11.1, Thyroid Stimulating Hormone (TSH) 1.421 Height (Feet): 5 Height (Inches): 2.00 Weight (Pounds): 85 General Appearance: lethargic, confused EENT: normal ENT inspection Neck: normal alignment Cardiovascular: normal peripheral pulses, normal rate, regular rhythm Respiratory/Chest: chest wall non-tender, lungs clear, normal breath sounds Abdomen: normal bowel sounds, non tender, soft Extremities: normal inspection Edema: no edema noted Arm (L), no edema noted Arm (R), no edema noted Leg (L), no edema noted Leg (R), no edema noted Pedal (L), no edema noted Pedal (R), no edema noted Generalized Neurologic: motor weakness Skin: normal pigmentation, warm/dry Brad Viveros DO Apr 18, 2018 13:48
--- NOTE | 2018-04-18 14:14 | Nephrology Progress Note ---
Assessment/Plan Problem List: (1) Dehydration (2) ACS (acute coronary syndrome) Assessment: elevated troponin (3) Hypernatremia Assessment Dehydration- Syncope - Acute on chronic encephalopathy elevated troponin high Hgb due to hemoconcentration Plan Hydrate- adjust mind altering meds Monitor lytes and renal parameters Gastric mucosa support Per orders Subjective ROS Limited/Unobtainable: No Constitutional: Reports: malaise, weakness Objective Objective Last 24 Hour Vital Signs Date Time Temp Pulse Resp B/P (MAP) Pulse Ox O2 Delivery O2 Flow Rate FiO2 04/18/18 12:00 97.5 80 16 121/62 (81) 04/18/18 09:56 71 18 Room Air 21 04/18/18 09:00 Room Air Room Air 04/18/18 08:00 97.8 76 18 172/92 (118) 04/18/18 08:00 97.0 78 20 149/80 (103) 94 04/18/18 04:00 97.0 78 20 149/80 (103) 94 04/18/18 00:00 98.0 84 20 100/66 (77) 97 04/17/18 21:00 Room Air Room Air 04/17/18 20:46 76 18 Room Air 21 04/17/18 20:00 97.5 82 20 98/54 (69) 97 04/17/18 16:00 97.9 77 18 99/54 (69) 98 04/17/18 15:35 70 04/17/18 15:32 121/76 Intake and Output 04/17/18 04/18/18 18:59 06:59 Intake Total 600 ml 0 ml Balance 600 ml 0 ml Intake Oral 600 ml 0 ml # Voids 2 3 Laboratory Tests 04/18/18 12:10: White Blood Count 9.4, Red Blood Count 4.77, Hemoglobin 15.4, Hematocrit 46.8, Mean Corpuscular Volume 98, Mean Corpuscular Hemoglobin 32.2H, Mean Corpuscular Hemoglobin Concent 32.9, Red Cell Distribution Width 12.9, Platelet Count 133L, Mean Platelet Volume 6.3L, Neutrophils (%) (Auto) 60.7, Lymphocytes (%) (Auto) 31.5, Monocytes (%) (Auto) 6.0, Eosinophils (%) (Auto) 1.0, Basophils (%) (Auto ) 0.8, Prothrombin Time 14.2H, Prothromb Time International Ratio 1.4H, Activated Partial Thromboplast Time 32, Sodium Level 147H, Potassium Level 3.9, Chloride Level 109H, Carbon Dioxide Level 32, Anion Gap 6, Blood Urea Nitrogen 26H, Creatinine 0.9, Estimat Glomerular Filtration Rate , Glucose Level 80, Hemoglobin A1c 5.3, Uric Acid 5.0, Calcium Level 9.5, Phosphorus Level 2.4L, Magnesium Level 1.9, Total Bilirubin 1.0, Gamma Glutamyl Transpeptidase 27, Aspartate Amino Transf (AST/SGOT) 32, Alanine Aminotransferase (ALT/SGPT) 42, Alkaline Phosphatase 82, Total Creatine Kinase 34, Troponin I 0.121H, Total Protein 6.2L, Albumin 3.1L, Globulin 3.1, Albumin/Globulin Ratio 1.0, Triglycerides Level 108, Cholesterol Level 183, LDL Cholesterol 106H, HDL Cholesterol 46, Cholesterol/HDL Ratio 4.0, Vitamin B12 Level 641, Folate 11.1, Thyroid Stimulating Hormone (TSH) 1.421 Height (Feet): 5 Height (Inches): 2.00 Weight (Pounds): 85 General Appearance: no apparent distress, lethargic Cardiovascular: normal rate Respiratory/Chest: decreased breath sounds Abdomen: soft Sebastian Mullen MD Apr 18, 2018 14:14
--- NOTE | 2018-04-18 15:15 | Cardiac Electrophysiology PN ---
Subjective Subjective [id number] Objective Last 24 Hour Vital Signs Date Time Temp Pulse Resp B/P (MAP) Pulse Ox O2 Delivery O2 Flow Rate FiO2 04/18/18 12:00 97.5 80 16 121/62 (81) 04/18/18 09:56 71 18 Room Air 21 04/18/18 09:00 Room Air Room Air 04/18/18 08:00 97.8 76 18 172/92 (118) 04/18/18 08:00 97.0 78 20 149/80 (103) 94 04/18/18 04:00 97.0 78 20 149/80 (103) 94 04/18/18 00:00 98.0 84 20 100/66 (77) 97 04/17/18 21:00 Room Air Room Air 04/17/18 20:46 76 18 Room Air 21 04/17/18 20:00 97.5 82 20 98/54 (69) 97 04/17/18 16:00 97.9 77 18 99/54 (69) 98 04/17/18 15:35 70 04/17/18 15:32 121/76 Intake and Output 04/17/18 04/18/18 18:59 06:59 Intake Total 600 ml 0 ml Balance 600 ml 0 ml Intake Oral 600 ml 0 ml # Voids 2 3 Laboratory Tests Test 04/18/18 12:10 White Blood Count 9.4 K/UL (4.8-10.8) Red Blood Count 4.77 M/UL (4.20-5.40) Hemoglobin 15.4 G/DL (12.0-16.0) Hematocrit 46.8 % (37.0-47.0) Mean Corpuscular Volume 98 FL (80-99) Mean Corpuscular Hemoglobin 32.2 PG (27.0-31.0) H Mean Corpuscular Hemoglobin Concent 32.9 G/DL (32.0-36.0) Red Cell Distribution Width 12.9 % (11.6-14.8) Platelet Count 133 K/UL (150-450) L Mean Platelet Volume 6.3 FL (6.5-10.1) L Neutrophils (%) (Auto) 60.7 % (45.0-75.0) Lymphocytes (%) (Auto) 31.5 % (20.0-45.0) Monocytes (%) (Auto) 6.0 % (1.0-10.0) Eosinophils (%) (Auto) 1.0 % (0.0-3.0) Basophils (%) (Auto) 0.8 % (0.0-2.0) Prothrombin Time 14.2 SEC (9.30-11.50) H Prothromb Time International Ratio 1.4 (0.9-1.1) H Activated Partial Thromboplast Time 32 SEC (23-33) Sodium Level 147 MMOL/L (136-145) H Potassium Level 3.9 MMOL/L (3.5-5.1) Chloride Level 109 MMOL/L (98-107) H Carbon Dioxide Level 32 MMOL/L (21-32) Anion Gap 6 mmol/L (5-15) Blood Urea Nitrogen 26 mg/dL (7-18) H Creatinine 0.9 MG/DL (0.55-1.30) Estimat Glomerular Filtration Rate mL/min (>60) Glucose Level 80 MG/DL (74-106) Hemoglobin A1c 5.3 % (4.3-6.0) Uric Acid 5.0 MG/DL (2.6-7.2) Calcium Level 9.5 MG/DL (8.5-10.1) Phosphorus Level 2.4 MG/DL (2.5-4.9) L Magnesium Level 1.9 MG/DL (1.8-2.4) Total Bilirubin 1.0 MG/DL (0.2-1.0) Gamma Glutamyl Transpeptidase 27 U/L (5-85) Aspartate Amino Transf (AST/SGOT) 32 U/L (15-37) Alanine Aminotransferase (ALT/SGPT) 42 U/L (12-78) Alkaline Phosphatase 82 U/L (46-116) Total Creatine Kinase 34 U/L (26-308) Troponin I 0.121 ng/mL (0.000-0.056) Total Protein 6.2 G/DL (6.4-8.2) L Albumin 3.1 G/DL (3.4-5.0) L Globulin 3.1 g/dL Albumin/Globulin Ratio 1.0 (1.0-2.7) Triglycerides Level 108 MG/DL (30-150) Cholesterol Level 183 MG/DL (< 200) LDL Cholesterol 106 mg/dL (<100) H HDL Cholesterol 46 MG/DL (40-60) Cholesterol/HDL Ratio 4.0 (3.3-4.4) Vitamin B12 Level 641 PG/ML (193-986) Folate 11.1 NG/ML (8.6-58.9) Thyroid Stimulating Hormone (TSH) 1.421 uiU/mL (0.358-3.740) Yunior Rasheed MD Apr 18, 2018 15:15
--- NOTE | 2018-04-18 15:17 | NUR ---
NURSE NOTES: Seen by Dr Rasheed,ordered to keep pt in Telemetry since pt with Pacemaker.
--- NOTE | 2018-04-18 15:18 | NUR ---
NURSE NOTES: per dr reyna cancel transfer order to [facility]. patient has a pacemaker and has to stay in tele.will carry out.
[2018-04-18 16:00] VITALS: BP 149/78
--- NOTE | 2018-04-18 16:00 | NUR ---
NURSE NOTES: Unable to do Orthostatic V/S pt unable to sit up or stand up,combative when touched.
[2018-04-18] MEDS: Nitroglycerin Patch 0.4mg TDERMAL SCH (16:09)
--- NOTE | 2018-04-18 17:30 | Consultation ---
DATE OF CONSULTATION: 04/18/2018 INITIAL PSYCHIATRIC EVALUATION CONSULTING PHYSICIAN: Mark Bajwa M.D. HISTORY OF PRESENT ILLNESS: The patient is an 87-year-old female, came into the hospital at [place] due to syncope and dehydration. She is very confused and disorganized. I saw and assessed her at bedside. daily psychiatric consultation because the patient has depression and altered mental status. She is very confused, minimally verbal on interview, very confused, and disorganized. No plan for self-care. MEDICAL PROBLEMS: Syncope and dehydration. ALLERGIES: Penicillin. MEDICATIONS: Psychotropic medications on admission, Wellbutrin 300 mg daily, Remeron 7.5 mg nightly, Ativan 0.5 mg q.12 hours p.r.n. anxiety and agitation, and Namenda 10 mg daily. SUBSTANCE ABUSE HISTORY: Denies. PAIN ASSESSMENT: 0. DEVELOPMENTAL PROBLEMS: Denies. FAMILY PSYCHIATRIC HISTORY: Denies. SOCIAL HISTORY: The patient lives . Financially supported by [employer] and Medicare. PSYCHIATRIC HISTORY: Major depressive disorder, rule out dementia with psychosis. STRENGTHS: She is motivated to get better. She has place to live. WEAKNESSES: She is impulsive. Minimal support system. MENTAL STATUS EXAMINATION: This is an 87-year-old female. Appearance disheveled. Attitude, irritable and agitated. Affect, guarded and restricted. Intellect poor. Mood, depressed and anxious. Motor activity, psychomotor agitation. Attention span is poor. Orientation x2. Speech is low volume and slurred. Thought process, disorganized and illogical. Insight and judgment are poor. DIAGNOSES: PSYCHIATRIC: Major depressive disorder, severe, recurrent with psychotic features, rule out pseudodementia. MEDICAL: Menopause. PSYCHOSOCIAL STRESSORS: Financial. PLAN: Treat her with Wellbutrin XL 300 daily, Remeron 7.5 nightly, Ativan 0.5 mg IV every four hours p.r.n. anxiety and agitation, and Namenda 10 mg daily. Provided with 20 minutes of insight-oriented psychotherapy insight into her illness. She has better impulse control behavior. I would like to thank Dr. Brad Viveros for this interesting consultation. Mark Bajwa M.D. DR: RENE JOB#: [id number] CC:
--- NOTE | 2018-04-18 17:30 | Consultation ---
DATE OF CONSULTATION: 04/18/2018 HISTORY OF PRESENT ILLNESS: The patient is an 87-year-old female patient with syncope and dehydration. I saw and assessed this patient at bedside. She is very confused and disorganized. She has got no logical plan for own self-care. severe altered mental status and confusion. She is unable to . She also has depression as well. MEDICAL PROBLEMS: Dehydration and syncope. ALLERGIES: She is allergic to penicillin. PSYCHOTROPIC MEDICATIONS ON ADMISSION: Wellbutrin 300 mg a day, Remeron 7.5 mg at bedtime, Namenda 10 mg daily, and Ativan 0.5 mg IV q.4 h. p.r.n. anxiety and agitation. SUBSTANCE ABUSE HISTORY: Denies. PAIN ASSESSMENT: 0. DEVELOPMENTAL PROBLEMS: Denies. SOCIAL HISTORY: The patient is living private residence. Financially supported by [employer] and Medicare. PSYCHIATRIC HISTORY: History of major depressive disorder, severe, recurrent with psychotic features, rule out pseudodementia. STRENGTHS: She is motivated to get better. She has a place to live. WEAKNESSES: She is impulsive and minimal support system. MENTAL STATUS EXAMINATION: This is an 87-year-old female. Appearance is disheveled. Attitude, irritable and agitated. Affect, guarded and restricted. Intellect poor. Mood, depressed and anxious. Motor activity, psychomotor agitation. Attention span is poor. Orientation x2. Speech is also minimally verbal. Psychosocial stressors, financial functional impairment, treated with medication regimen. DIAGNOSES: 1. Major depressive disorder, mild, recurrent with psychotic features, rule out pseudodementia. 2. Medical, denies. 3. Psychosocial stressors, financial functional impairment, . PLAN: My plan for this patient is to treat her with a psychotropic medication regimen consisting of Wellbutrin 300 mg daily, nightly, Ativan 0.5 mg IV q.4 h. p.r.n. anxiety and agitation, and Namenda 10 mg daily. Provide her with 20 minutes of reality-based supportive psychotherapy and 20 minutes of cognitive behavioral therapy to help her identify her automatic negative thoughts and help her convert those negative thoughts to more positive thinking to reduce depression, anxiety, and suicidality. Chart was reviewed. Discussed with staff. The patient is seen and assessed at bedside. I would like to thank Dr. Brad Viveros for this interesting consultation. Mark Bajwa M.D. DR: LIANE JOB#: [id number] CC:
--- NOTE | 2018-04-18 18:00 | NUR ---
NURSE NOTES: No change in pt's status remains confussed,screams when touch,shouting to loeave her alone.
--- NOTE | 2018-04-18 19:25 | NUR ---
HAND-OFF: Report given to Lakeisha Stone RN..
--- NOTE | 2018-04-18 19:26 | NUR ---
NURSE NOTES: BEDSIDE REPORT RECEIVED FROM BRYAN ORR. PT IS X1, ABLE TO MAKE NEEDS KNOW, HOWEVER CONFUSED. PT CURRENTLY HAS NO IV SITE, AM RN STATES THAT SHE IS CONFUSED AND PULLED OUT THE LAST IV. AM RN WILL ATTEMPT ESAU. SHE IS SR ON THE MONITOR. RA SATING WELL. SHE IS CURRENTLY CLEAN AND DRY, SKIN INTACT. SHE IS INCONTINENT. BED IS LOCKED IN LOWEST POSITION, SRX3, BED ALARM ON, CALL DICK W/ IN REACH. WILL CONTINUE TO MONITOR AND FOLLOW PLAN OF CARE.
[2018-04-18 20:00] VITALS: BP 138/69
--- NOTE | 2018-04-18 20:00 | NUR ---
NURSE NOTES: BRYAN ORR ABLE TO GET RAC 22G; ASMYPTOMATIC. WILL RESUME IV FLUIDS.
--- NOTE | 2018-04-18 20:30 | Consultation ---
DATE OF CONSULTATION: 04/18/2018 CARDIOLOGY CONSULTATION CONSULTING PHYSICIAN: Yunior Rasheed M.D. REFERRING PHYSICIAN: Brad Viveros D.O. REASON FOR CONSULTATION: Syncope. HISTORY OF PRESENT ILLNESS: The patient is an 87-year-old lady with history of diabetes, who was brought to the emergency room after she had a syncopal episode while she was in the toilet, which was witnessed by her daughter. The patient did not have any chest pain or shortness of breath. The patient was admitted to telemetry unit as her troponin was elevated at 0.164. At the time of my evaluation, the patient is comfortable. Denies any chest pain or shortness of breath. PAST MEDICAL HISTORY: 1. Hypertension. 2. Diabetes. FAMILY HISTORY: Noncontributory. SOCIAL HISTORY: She lives at home. Does not smoke or drink alcohol. REVIEW OF SYSTEMS: Review of systems was performed and was negative other than what was mentioned in history of present illness. PHYSICAL EXAMINATION: VITAL SIGNS: Blood pressure 121/62, pulse 80, respirations 16, and temperature 97.5. HEAD AND NECK: Showed no JVD. LUNGS: Clear. CARDIOVASCULAR: Shows regular S1 and S2 with no gallop or murmur. ABDOMEN: Soft. EXTREMITIES: No pitting edema. She also has a pacemaker in the left subclavian area. LABORATORY AND DIAGNOSTIC DATA: Her echocardiogram showed an ejection fraction of 55%. Her EKG showed sinus rhythm with nonspecific ST-T wave abnormalities. Her labs show white count of 9.4, hemoglobin of 15.4, hematocrit of 46.8, and platelet count of 133,000. Sodium 147, potassium 3.9, BUN of 26, creatinine 0.9, and glucose of 80. Troponin is 0.164 and 0.121. INR is 1.4. ASSESSMENT AND PLAN: 1. Troponin elevation. The etiology is not clear at this time. Continue aspirin and add low-dose beta-rachel to her medical regimen. 2. Status post permanent pacemaker implantation. We will get a chest x-ray for confirmation and try to find the brand of the pacemaker. Her echocardiogram showed ejection fraction of 55%. 3. Depression. On Wellbutrin. 4. Syncope while she was the toilet likely vagal. However, we will get a carotid duplex and put the patient on telemetry, but also could be due to dehydration. 5. The patient is on Eliquis and Xarelto. The reason is not clear at this point, but currently the patient does not have atrial fibrillation. It could have been due to DVT. Thank you very much, Dr. Viveros for allowing me to participate in the care of this patient. Please do not hesitate to contact me for any questions regarding my evaluation. Yunior Rasheed M.D. DR: LYDIA JOB#: [id number] CC:
[2018-04-19] VITALS: BP 123/68
[2018-04-19 04:00] VITALS: BP 152/81
[2018-04-19 05:47] LABS: BASOPHILS % (AUTO) 0.7 % (0.0-2.0); EOSINOPHILS % (AUTO) 1.5 % (0.0-3.0); HEMATOCRIT 43.3 % (37.0-47.0); HEMOGLOBIN 14.5 G/DL (12.0-16.0); LYMPHOCYTES % (AUTO) 21.9 % (20.0-45.0); MEAN CORPUSCULAR VOLUME 99 FL (80-99); MONOCYTES % (AUTO) 5.3 % (1.0-10.0); NEUTROPHILS % (AUTO) 70.6 % (45.0-75.0); PLATELET COUNT 120 K/UL (150-450); RED BLOOD COUNT 4.36 M/UL (4.20-5.40); RED CELL DISTRIBUTION WIDTH 13.1 % (11.6-14.8); WHITE BLOOD COUNT 10.2 K/UL (4.8-10.8)
[2018-04-19 05:58] LABS: ANION GAP 8 mmol/L (5-15); BLOOD UREA NITROGEN 25 mg/dL (7-18); CARBON DIOXIDE 30 MMOL/L (21-32); CHLORIDE 111 MMOL/L (98-107); POTASSIUM 4.4 MMOL/L (3.5-5.1); SODIUM 149 MMOL/L (136-145)
--- NOTE | 2018-04-19 06:34 | NUR ---
NURSE NOTES: PAGED DR. EDMONDSON REGARDING ELEVATED TROPONIN 0.126, UP FROM 0.121. AWAITING CALL BACK. WILL CONTINUE TO MONITOR AND FOLLOW PLAN OF CARE.
--- NOTE | 2018-04-19 07:16 | NUR ---
HAND-OFF: Report given to BRYAN DICK.
--- NOTE | 2018-04-19 07:18 | NUR ---
NURSE NOTES: Received patient from Lakeisha ADAMS in bed, denies any pain. No s/s of acute distress noted. Iv is intact an patent. Bed is in lowest position with bedside rails up X3. Brakes engaged for safety. Call light is within reach. Will continue with the plan of care.
[2018-04-19 08:00] VITALS: BP 125/70
--- NOTE | 2018-04-19 09:08 | NUR ---
RADIOLOGY DEPT CHEST X-RAY DONE.-P.DYE
[2018-04-19] MEDS: Xarelto 15mg tab ORAL SCH (10:00)
[2018-04-19] MEDS: BuPROPion XL 300mg tab ORAL SCH (10:01)
[2018-04-19] MEDS: Memantine 10mg tab ORAL SCH (10:01)
[2018-04-19] MEDS: Aspirin Baby 81mg ORAL SCH (10:01)
[2018-04-19 10:07] LABS: ALANINE AMINOTRANSFERASE 35 U/L (12-78); ALKALINE PHOSPHATASE 85 U/L (46-116); ASPARTATE AMINO TRANSFERASE 26 U/L (15-37); BILIRUBIN,DIRECT 0.3 MG/DL (0.0-0.3); BILIRUBIN,TOTAL 0.9 MG/DL (0.2-1.0); PHOSPHORUS 2.8 MG/DL (2.5-4.9)
--- NOTE | 2018-04-19 10:40 | Diagnostic Imaging Report ---
. Indication: Cough Technique: One view of the chest Comparison: 04/17/2018 Findings: Left chest pacemaker again demonstrated. Lungs and pleural spaces remain clear. The heart size is normal Impression: Negative
[2018-04-19] MEDS: D5 1/2NS w/KCl 20mEq 1,000 ML IV SCH (11:00)
--- NOTE | 2018-04-19 11:48 | Pulmonology Progress Note ---
Assessment/Plan Problems: (1) ACS (acute coronary syndrome) (2) Hypernatremia (3) Acute encephalopathy (4) Diabetes mellitus Assessment/Plan doing better, not talking echo reviewed, normal EF CXR reviewed, No acute infiltrate, Na slightly high continue IV fluids calorie count. dvt prophylaxis. d/w daughter, she wants long-term placement Subjective Interval Events: more awake Allergies: Coded Allergies: PENICILLINS (Verified Allergy, Unknown, 04/17/18) Uncoded Allergies: PENICILLIN (Allergy, Unknown, 04/17/18) Objective Last 24 Hour Vital Signs Date Time Temp Pulse Resp B/P (MAP) Pulse Ox O2 Delivery O2 Flow Rate FiO2 04/19/18 09:00 Room Air Room Air 04/19/18 08:48 73 16 Room Air 21 04/19/18 08:00 97.7 76 19 125/70 (88) 99 04/19/18 08:00 73 04/19/18 04:00 97.1 78 19 152/81 (104) 98 04/19/18 04:00 72 04/19/18 00:00 98.0 78 18 123/68 (86) 96 04/19/18 00:00 59 04/18/18 23:25 83 18 Room Air 21 04/18/18 21:00 Room Air Room Air 04/18/18 20:00 98.1 87 18 138/69 (92) 96 04/18/18 19:06 83 04/18/18 16:09 121/62 04/18/18 16:00 98.3 83 18 149/78 (101) 04/18/18 16:00 84 04/18/18 12:00 97.5 80 16 121/62 (81) Intake and Output 04/18/18 04/19/18 19:00 07:00 Intake Total 60 ml Balance 60 ml Intake Oral 60 ml # Voids 3 1 # Bowel Movements 1 Objective doing better, more talkative General Appearance: WD/WN HEENT: normocephalic, atraumatic Respiratory/Chest: chest wall non-tender, lungs clear Cardiovascular: normal peripheral pulses, normal rate Abdomen: normal bowel sounds, soft, non tender Genitourinary: normal external genitalia Extremities: no cyanosis Skin: no ulcers Neurologic/Psychiatric: broom stitcher II-XII grossly normal Lymphatic: no neck adenopathy Laboratory Tests 04/18/18 12:10: White Blood Count 9.4, Red Blood Count 4.77, Hemoglobin 15.4, Hematocrit 46.8, Mean Corpuscular Volume 98, Mean Corpuscular Hemoglobin 32.2H, Mean Corpuscular Hemoglobin Concent 32.9, Red Cell Distribution Width 12.9, Platelet Count 133L, Mean Platelet Volume 6.3L, Neutrophils (%) (Auto) 60.7, Lymphocytes (%) (Auto) 31.5, Monocytes (%) (Auto) 6.0, Eosinophils (%) (Auto) 1.0, Basophils (%) (Auto ) 0.8, Prothrombin Time 14.2H, Prothromb Time International Ratio 1.4H, Activated Partial Thromboplast Time 32, Sodium Level 147H, Potassium Level 3.9, Chloride Level 109H, Carbon Dioxide Level 32, Anion Gap 6, Blood Urea Nitrogen 26H, Creatinine 0.9, Estimat Glomerular Filtration Rate , Glucose Level 80, Hemoglobin A1c 5.3, Uric Acid 5.0, Calcium Level 9.5, Phosphorus Level 2.4L, Magnesium Level 1.9, Total Bilirubin 1.0, Gamma Glutamyl Transpeptidase 27, Aspartate Amino Transf (AST/SGOT) 32, Alanine Aminotransferase (ALT/SGPT) 42, Alkaline Phosphatase 82, Total Creatine Kinase 34, Troponin I 0.121H, Total Protein 6.2L, Albumin 3.1L, Globulin 3.1, Albumin/Globulin Ratio 1.0, Triglycerides Level 108, Cholesterol Level 183, LDL Cholesterol 106H, HDL Cholesterol 46, Cholesterol/HDL Ratio 4.0, Vitamin B12 Level 641, Folate 11.1, Thyroid Stimulating Hormone (TSH) 1.421, Hepatitis A IgM Antibody Negative, Hepatitis B Surface Antigen Negative, Hepatitis B Core IgM Antibody Negative, Hepatitis C Antibody 0.3, HIV (1&2) Antibody Rapid Negative 04/19/18 05:20: Phosphorus Level 2.8, Magnesium Level 1.7L, Total Bilirubin 0.9, Aspartate Amino Transf (AST/SGOT) 26, Alanine Aminotransferase (ALT/SGPT) 35, Alkaline Phosphatase 85, Total Protein 6.2L, Albumin 3.0L, Direct Bilirubin 0.3 04/19/18 05:22: White Blood Count 10.2, Red Blood Count 4.36, Hemoglobin 14.5, Hematocrit 43.3, Mean Corpuscular Volume 99, Mean Corpuscular Hemoglobin 33.3H, Mean Corpuscular Hemoglobin Concent 33.5, Red Cell Distribution Width 13.1, Platelet Count 120L, Mean Platelet Volume 7.1, Neutrophils (%) (Auto) 70.6, Lymphocytes (%) (Auto) 21.9, Monocytes (%) (Auto) 5.3, Eosinophils (%) (Auto) 1.5, Basophils (%) (Auto ) 0.7, Sodium Level 149H, Potassium Level 4.4, Chloride Level 111H, Carbon Dioxide Level 30, Anion Gap 8, Blood Urea Nitrogen 25H, Creatinine 1.0, Estimat Glomerular Filtration Rate , Glucose Level 103, Calcium Level 9.0, Troponin I 0.126H, Pro-B-Type Natriuretic Peptide 1554H Current Medications Medications (Trade) Dose Ordered Sig/Zan Route PRN Reason Start Time Stop Time Status Last Admin Dose Admin Acetaminophen (Tylenol) 650 mg Q4H PRN ORAL T>100.5 04/17/18 09:15 05/17/18 09:14 04/17/18 11:13 Albuterol/ Ipratropium (Albuterol/ Ipratropium) 3 ml Q4H PRN HHN Shortness of Breath 04/17/18 09:15 04/22/18 09:14 Aspirin (ASA) 81 mg DAILY ORAL 04/18/18 09:00 05/18/18 08:59 04/19/18 10:01 Bupropion HCl (Wellbutrin XL) 300 mg DAILY ORAL 04/17/18 11:00 05/17/18 10:59 04/19/18 10:01 Dextrose (Dextrose 50%) 25 ml Q30M PRN IV Hypoglycemia 04/17/18 09:15 05/17/18 09:14 Dextrose (Dextrose 50%) 50 ml Q30M PRN IV Hypoglycemia 04/17/18 09:15 05/17/18 09:14 Dextrose/ Electrolytes 1,000 ml @ 50 mls/hr Q20H IV 04/18/18 15:00 05/17/18 14:59 04/18/18 16:11 Famotidine (Pepcid) 20 mg BID ORAL 04/17/18 18:00 05/17/18 17:59 04/19/18 10:01 Hydralazine HCl (Apresoline) 25 mg Q4H PRN ORAL sbp > 160mmHg 04/17/18 14:45 05/17/18 14:44 Lorazepam (Ativan 2mg/ml 1ml) 0.5 mg Q4H PRN IV For Anxiety 04/17/18 09:15 04/24/18 09:14 Memantine (Namenda) 10 mg DAILY ORAL 04/17/18 09:00 05/17/18 08:59 04/19/18 10:01 Mirtazapine (Remeron) 7.5 mg BEDTIME ORAL 04/17/18 21:00 05/17/18 20:59 04/18/18 20:13 Morphine Sulfate (Morphine Sulfate) 1 mg Q4H PRN IVP Severe Pain (Pain Scale 7-10) 04/17/18 09:15 04/24/18 09:14 Nitroglycerin (Ntg) 0.4 mg Q5M X 3 DOSES PRN SL Prn Chest Pain 04/17/18 09:15 05/17/18 09:14 Nitroglycerin (Ntg) 1 patch Q24H TDERMAL 04/17/18 15:00 05/17/18 14:59 04/18/18 16:09 Ondansetron HCl (Zofran) 4 mg Q6H PRN IVP Nausea & Vomiting 04/17/18 09:15 05/17/18 09:14 Polyethylene Glycol (Miralax) 17 gm HSPRN PRN ORAL Constipation 04/17/18 21:00 05/17/18 20:59 Rivaroxaban (Xarelto) 15 mg DAILY ORAL 04/17/18 10:00 05/17/18 09:59 04/19/18 10:00 Temazepam (Restoril) 15 mg HSPRN PRN ORAL Insomnia 04/17/18 21:00 04/24/18 20:59 Amirah Veliz MD Apr 19, 2018 11:48
[2018-04-19 12:00] VITALS: BP 150/86
--- NOTE | 2018-04-19 12:42 | Infectious Diseases Prog Note ---
Assessment/Plan Assessment/Plan Abx: NOne Assessment: Syncopal episode, likely due to dehydration (+ RANJEET, hemoconcentration) Afebrile NO leukocytosis- no infectious process at present -u/a neg -CXR: Left chest pacemaker again demonstrated. Lungs and pleural spaces remain clear. The heart size is normal DM2 Dementia Plan: -COntinue to monitor off abx -f/u cx -Monitor CBC/CMP, temperatures -aspiration precautions Thank you for this consultation. Will continue to follow along with you. Discussed with RN. Subjective Allergies: Coded Allergies: PENICILLINS (Verified Allergy, Unknown, 04/17/18) Uncoded Allergies: PENICILLIN (Allergy, Unknown, 04/17/18) Subjective afebrile no leukocytosis off abx Objective Vital Signs Last 24 Hour Vital Signs Date Time Temp Pulse Resp B/P (MAP) Pulse Ox O2 Delivery O2 Flow Rate FiO2 04/19/18 12:00 97.7 76 18 150/86 (107) 88 04/19/18 09:00 Room Air Room Air 04/19/18 08:48 73 16 Room Air 21 04/19/18 08:00 97.7 76 19 125/70 (88) 99 04/19/18 08:00 73 04/19/18 04:00 97.1 78 19 152/81 (104) 98 04/19/18 04:00 72 04/19/18 00:00 98.0 78 18 123/68 (86) 96 04/19/18 00:00 59 04/18/18 23:25 83 18 Room Air 21 04/18/18 21:00 Room Air Room Air 04/18/18 20:00 98.1 87 18 138/69 (92) 96 04/18/18 19:06 83 04/18/18 16:09 121/62 04/18/18 16:00 98.3 83 18 149/78 (101) 04/18/18 16:00 84 Height (Feet): 5 Height (Inches): 2.00 Weight (Pounds): 85 Objective GENERAL: Calm in bed, oriented x2, in no acute distress. CARDIOVASCULAR: No murmur. LUNGS: Distant and clear. ABDOMEN: Bowel sounds positive. Nontender. Nondistended. EXTREMITIES: No cyanosis or edema. NEUROLOGIC: The patient moves all extremities, slightly weak. Laboratory Tests Test 04/19/18 05:20 04/19/18 05:22 Phosphorus Level 2.8 MG/DL (2.5-4.9) Magnesium Level 1.7 MG/DL (1.8-2.4) L Total Bilirubin 0.9 MG/DL (0.2-1.0) Direct Bilirubin 0.3 MG/DL (0.0-0.3) Aspartate Amino Transf (AST/SGOT) 26 U/L (15-37) Alanine Aminotransferase (ALT/SGPT) 35 U/L (12-78) Alkaline Phosphatase 85 U/L (46-116) Total Protein 6.2 G/DL (6.4-8.2) L Albumin 3.0 G/DL (3.4-5.0) L White Blood Count 10.2 K/UL (4.8-10.8) Red Blood Count 4.36 M/UL (4.20-5.40) Hemoglobin 14.5 G/DL (12.0-16.0) Hematocrit 43.3 % (37.0-47.0) Mean Corpuscular Volume 99 FL (80-99) Mean Corpuscular Hemoglobin 33.3 PG (27.0-31.0) H Mean Corpuscular Hemoglobin Concent 33.5 G/DL (32.0-36.0) Red Cell Distribution Width 13.1 % (11.6-14.8) Platelet Count 120 K/UL (150-450) L Mean Platelet Volume 7.1 FL (6.5-10.1) Neutrophils (%) (Auto) 70.6 % (45.0-75.0) Lymphocytes (%) (Auto) 21.9 % (20.0-45.0) Monocytes (%) (Auto) 5.3 % (1.0-10.0) Eosinophils (%) (Auto) 1.5 % (0.0-3.0) Basophils (%) (Auto) 0.7 % (0.0-2.0) Sodium Level 149 MMOL/L (136-145) H Potassium Level 4.4 MMOL/L (3.5-5.1) Chloride Level 111 MMOL/L (98-107) H Carbon Dioxide Level 30 MMOL/L (21-32) Anion Gap 8 mmol/L (5-15) Blood Urea Nitrogen 25 mg/dL (7-18) H Creatinine 1.0 MG/DL (0.55-1.30) Estimat Glomerular Filtration Rate mL/min (>60) Glucose Level 103 MG/DL (74-106) Calcium Level 9.0 MG/DL (8.5-10.1) Troponin I 0.126 ng/mL (0.000-0.056) Pro-B-Type Natriuretic Peptide 1554 pg/mL (0-125) H Current Medications Medications (Trade) Dose Ordered Sig/Zan Route PRN Reason Start Time Stop Time Status Last Admin Dose Admin Acetaminophen (Tylenol) 650 mg Q4H PRN ORAL T>100.5 04/17/18 09:15 05/17/18 09:14 04/17/18 11:13 Albuterol/ Ipratropium (Albuterol/ Ipratropium) 3 ml Q4H PRN HHN Shortness of Breath 04/17/18 09:15 04/22/18 09:14 Aspirin (ASA) 81 mg DAILY ORAL 04/18/18 09:00 05/18/18 08:59 04/19/18 10:01 Bupropion HCl (Wellbutrin XL) 300 mg DAILY ORAL 04/17/18 11:00 05/17/18 10:59 04/19/18 10:01 Dextrose (Dextrose 50%) 25 ml Q30M PRN IV Hypoglycemia 04/17/18 09:15 05/17/18 09:14 Dextrose (Dextrose 50%) 50 ml Q30M PRN IV Hypoglycemia 04/17/18 09:15 05/17/18 09:14 Dextrose/ Electrolytes 1,000 ml @ 50 mls/hr Q20H IV 04/18/18 15:00 05/17/18 14:59 04/19/18 11:00 Famotidine (Pepcid) 20 mg BID ORAL 04/17/18 18:00 05/17/18 17:59 04/19/18 10:01 Hydralazine HCl (Apresoline) 25 mg Q4H PRN ORAL sbp > 160mmHg 04/17/18 14:45 05/17/18 14:44 Lorazepam (Ativan 2mg/ml 1ml) 0.5 mg Q4H PRN IV For Anxiety 04/17/18 09:15 04/24/18 09:14 Memantine (Namenda) 10 mg DAILY ORAL 04/17/18 09:00 05/17/18 08:59 04/19/18 10:01 Mirtazapine (Remeron) 7.5 mg BEDTIME ORAL 04/17/18 21:00 05/17/18 20:59 04/18/18 20:13 Morphine Sulfate (Morphine Sulfate) 1 mg Q4H PRN IVP Severe Pain (Pain Scale 7-10) 04/17/18 09:15 04/24/18 09:14 Nitroglycerin (Ntg) 0.4 mg Q5M X 3 DOSES PRN SL Prn Chest Pain 04/17/18 09:15 05/17/18 09:14 Nitroglycerin (Ntg) 1 patch Q24H TDERMAL 04/17/18 15:00 05/17/18 14:59 04/18/18 16:09 Ondansetron HCl (Zofran) 4 mg Q6H PRN IVP Nausea & Vomiting 04/17/18 09:15 05/17/18 09:14 Polyethylene Glycol (Miralax) 17 gm HSPRN PRN ORAL Constipation 04/17/18 21:00 05/17/18 20:59 Rivaroxaban (Xarelto) 15 mg DAILY ORAL 04/17/18 10:00 05/17/18 09:59 04/19/18 10:00 Temazepam (Restoril) 15 mg HSPRN PRN ORAL Insomnia 04/17/18 21:00 04/24/18 20:59 Radha Rothman M.D. Apr 19, 2018 12:42
--- NOTE | 2018-04-19 14:10 | General Progress Note ---
Assessment/Plan Problem List: (1) UTI (urinary tract infection) ICD Codes: N39.0 - Urinary tract infection, site not specified SNOMED: 67894904 (2) Dehydration ICD Codes: E86.0 - Dehydration SNOMED: 42064593 (3) Syncope ICD Codes: R55 - Syncope and collapse SNOMED: 825061381 Qualifiers: Qualified Codes: R55 - Syncope and collapse Status: unchanged Assessment/Plan pt diet abx neuro psyc cardio eval cbc bmp am Subjective Constitutional: Reports: weakness Allergies: Coded Allergies: PENICILLINS (Verified Allergy, Unknown, 04/17/18) Uncoded Allergies: PENICILLIN (Allergy, Unknown, 04/17/18) All Systems: reviewed and negative except above Subjective calm in bed sl confused Objective Last 24 Hour Vital Signs Date Time Temp Pulse Resp B/P (MAP) Pulse Ox O2 Delivery O2 Flow Rate FiO2 04/19/18 12:00 97.7 76 18 150/86 (107) 88 04/19/18 09:00 Room Air Room Air 04/19/18 08:48 73 16 Room Air 21 04/19/18 08:00 97.7 76 19 125/70 (88) 99 04/19/18 08:00 73 04/19/18 04:00 97.1 78 19 152/81 (104) 98 04/19/18 04:00 72 04/19/18 00:00 98.0 78 18 123/68 (86) 96 04/19/18 00:00 59 04/18/18 23:25 83 18 Room Air 21 04/18/18 21:00 Room Air Room Air 04/18/18 20:00 98.1 87 18 138/69 (92) 96 04/18/18 19:06 83 04/18/18 16:09 121/62 04/18/18 16:00 98.3 83 18 149/78 (101) 04/18/18 16:00 84 Intake and Output 04/18/18 04/19/18 18:59 06:59 Intake Total 60 ml Balance 60 ml Intake Oral 60 ml # Voids 3 1 # Bowel Movements 1 Laboratory Tests 04/19/18 05:20: Phosphorus Level 2.8, Magnesium Level 1.7L, Total Bilirubin 0.9, Direct Bilirubin 0.3, Aspartate Amino Transf (AST/SGOT) 26, Alanine Aminotransferase ( ALT/SGPT) 35, Alkaline Phosphatase 85, Total Protein 6.2L, Albumin 3.0L 04/19/18 05:22: White Blood Count 10.2, Red Blood Count 4.36, Hemoglobin 14.5, Hematocrit 43.3, Mean Corpuscular Volume 99, Mean Corpuscular Hemoglobin 33.3H, Mean Corpuscular Hemoglobin Concent 33.5, Red Cell Distribution Width 13.1, Platelet Count 120L, Mean Platelet Volume 7.1, Neutrophils (%) (Auto) 70.6, Lymphocytes (%) (Auto) 21.9, Monocytes (%) (Auto) 5.3, Eosinophils (%) (Auto) 1.5, Basophils (%) (Auto ) 0.7, Sodium Level 149H, Potassium Level 4.4, Chloride Level 111H, Carbon Dioxide Level 30, Anion Gap 8, Blood Urea Nitrogen 25H, Creatinine 1.0, Estimat Glomerular Filtration Rate , Glucose Level 103, Calcium Level 9.0, Troponin I 0.126H, Pro-B-Type Natriuretic Peptide 1554H Height (Feet): 5 Height (Inches): 2.00 Weight (Pounds): 85 General Appearance: lethargic EENT: normal ENT inspection Neck: normal alignment Cardiovascular: normal peripheral pulses, normal rate, regular rhythm Respiratory/Chest: chest wall non-tender, lungs clear, normal breath sounds Abdomen: normal bowel sounds, non tender, soft Extremities: normal inspection Edema: no edema noted Arm (L), no edema noted Arm (R), no edema noted Leg (L), no edema noted Leg (R), no edema noted Pedal (L), no edema noted Pedal (R), no edema noted Generalized Neurologic: motor weakness Skin: normal pigmentation, warm/dry Brad Viveros DO Apr 19, 2018 14:10
[2018-04-19] MEDS: Nitroglycerin Patch 0.4mg TDERMAL SCH (14:39)
--- NOTE | 2018-04-19 14:58 | Nephrology Progress Note ---
Assessment/Plan Problem List: (1) Dehydration (2) ACS (acute coronary syndrome) Assessment: elevated troponin (3) Hypernatremia Assessment Dehydration- Syncope - Acute on chronic encephalopathy elevated troponin high Hgb due to hemoconcentration Plan Hydrate- adjust BP meds adjust mind altering meds Monitor lytes and renal parameters Gastric mucosa support Per orders Subjective ROS Limited/Unobtainable: No Constitutional: Reports: malaise, weakness Objective Objective Last 24 Hour Vital Signs Date Time Temp Pulse Resp B/P (MAP) Pulse Ox O2 Delivery O2 Flow Rate FiO2 04/19/18 14:39 150/86 04/19/18 12:00 97.7 76 18 150/86 (107) 88 04/19/18 12:00 74 04/19/18 09:00 Room Air Room Air 04/19/18 08:48 73 16 Room Air 21 04/19/18 08:00 97.7 76 19 125/70 (88) 99 04/19/18 08:00 73 04/19/18 04:00 97.1 78 19 152/81 (104) 98 04/19/18 04:00 72 04/19/18 00:00 98.0 78 18 123/68 (86) 96 04/19/18 00:00 59 04/18/18 23:25 83 18 Room Air 21 04/18/18 21:00 Room Air Room Air 04/18/18 20:00 98.1 87 18 138/69 (92) 96 04/18/18 19:06 83 04/18/18 16:09 121/62 04/18/18 16:00 98.3 83 18 149/78 (101) 04/18/18 16:00 84 Intake and Output 04/18/18 04/19/18 18:59 06:59 Intake Total 60 ml Balance 60 ml Intake Oral 60 ml # Voids 3 1 # Bowel Movements 1 Laboratory Tests 04/19/18 05:20: Phosphorus Level 2.8, Magnesium Level 1.7L, Total Bilirubin 0.9, Direct Bilirubin 0.3, Aspartate Amino Transf (AST/SGOT) 26, Alanine Aminotransferase ( ALT/SGPT) 35, Alkaline Phosphatase 85, Total Protein 6.2L, Albumin 3.0L 04/19/18 05:22: White Blood Count 10.2, Red Blood Count 4.36, Hemoglobin 14.5, Hematocrit 43.3, Mean Corpuscular Volume 99, Mean Corpuscular Hemoglobin 33.3H, Mean Corpuscular Hemoglobin Concent 33.5, Red Cell Distribution Width 13.1, Platelet Count 120L, Mean Platelet Volume 7.1, Neutrophils (%) (Auto) 70.6, Lymphocytes (%) (Auto) 21.9, Monocytes (%) (Auto) 5.3, Eosinophils (%) (Auto) 1.5, Basophils (%) (Auto ) 0.7, Sodium Level 149H, Potassium Level 4.4, Chloride Level 111H, Carbon Dioxide Level 30, Anion Gap 8, Blood Urea Nitrogen 25H, Creatinine 1.0, Estimat Glomerular Filtration Rate , Glucose Level 103, Calcium Level 9.0, Troponin I 0.126H, Pro-B-Type Natriuretic Peptide 1554H Height (Feet): 5 Height (Inches): 2.00 Weight (Pounds): 85 General Appearance: no apparent distress, lethargic Cardiovascular: normal rate Respiratory/Chest: decreased breath sounds Abdomen: soft Sebastian Mullen MD Apr 19, 2018 14:58
--- NOTE | 2018-04-19 15:36 | NUR ---
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
[2018-04-19 16:00] VITALS: BP 133/71
--- NOTE | 2018-04-19 16:48 | Consultation ---
History of Present Illness General Date patient seen: Apr 19, 2018 Chief Complaint: Syncope Present Illness Allergies: Coded Allergies: PENICILLINS (Verified Allergy, Unknown, 04/17/18) Uncoded Allergies: PENICILLIN (Allergy, Unknown, 04/17/18) Medication History Scheduled Bupropion Hcl* (Wellbutrin*), 300 MG ORAL DAILY, (Reported) Bupropion Xl* (Bupropion Xl*), 150 MG ORAL Q24H, (Reported) Lorazepam* (Ativan*), 1 MG ORAL BEDTIME, (Reported) Memantine Hcl* (Namenda*), 10 MG ORAL DAILY, (Reported) Mirtazapine* (Mirtazapine*), 7.5 MG ORAL BEDTIME, (Reported) Rivaroxaban (Xarelto*), 15 MG ORAL DAILY, (Reported) Rivastigmine Tartrate (Exelon), 4.6 MG TD DAILY, (Reported) Miscellaneous Medications Hydroxychloroquine Sulfate (Hydroxychloroquine Sulfate), 200 MG PO, (Reported) Patient History Healthcare decision maker Resuscitation status Full Code Advanced Directive on File Physical Exam Last 24 Hour Vital Signs Date Time Temp Pulse Resp B/P (MAP) Pulse Ox O2 Delivery O2 Flow Rate FiO2 04/19/18 15:14 74 150/86 04/19/18 14:39 150/86 04/19/18 12:00 97.7 76 18 150/86 (107) 88 04/19/18 12:00 74 04/19/18 09:00 Room Air Room Air 04/19/18 08:48 73 16 Room Air 21 04/19/18 08:00 97.7 76 19 125/70 (88) 99 04/19/18 08:00 73 04/19/18 04:00 97.1 78 19 152/81 (104) 98 04/19/18 04:00 72 04/19/18 00:00 98.0 78 18 123/68 (86) 96 04/19/18 00:00 59 04/18/18 23:25 83 18 Room Air 21 04/18/18 21:00 Room Air Room Air 04/18/18 20:00 98.1 87 18 138/69 (92) 96 04/18/18 19:06 83 Intake and Output 04/18/18 04/19/18 18:59 06:59 Intake Total 60 ml Balance 60 ml Intake Oral 60 ml # Voids 3 1 # Bowel Movements 1 Laboratory Tests Test 04/19/18 05:20 04/19/18 05:22 Phosphorus Level 2.8 MG/DL (2.5-4.9) Magnesium Level 1.7 MG/DL (1.8-2.4) L Total Bilirubin 0.9 MG/DL (0.2-1.0) Direct Bilirubin 0.3 MG/DL (0.0-0.3) Aspartate Amino Transf (AST/SGOT) 26 U/L (15-37) Alanine Aminotransferase (ALT/SGPT) 35 U/L (12-78) Alkaline Phosphatase 85 U/L (46-116) Total Protein 6.2 G/DL (6.4-8.2) L Albumin 3.0 G/DL (3.4-5.0) L White Blood Count 10.2 K/UL (4.8-10.8) Red Blood Count 4.36 M/UL (4.20-5.40) Hemoglobin 14.5 G/DL (12.0-16.0) Hematocrit 43.3 % (37.0-47.0) Mean Corpuscular Volume 99 FL (80-99) Mean Corpuscular Hemoglobin 33.3 PG (27.0-31.0) H Mean Corpuscular Hemoglobin Concent 33.5 G/DL (32.0-36.0) Red Cell Distribution Width 13.1 % (11.6-14.8) Platelet Count 120 K/UL (150-450) L Mean Platelet Volume 7.1 FL (6.5-10.1) Neutrophils (%) (Auto) 70.6 % (45.0-75.0) Lymphocytes (%) (Auto) 21.9 % (20.0-45.0) Monocytes (%) (Auto) 5.3 % (1.0-10.0) Eosinophils (%) (Auto) 1.5 % (0.0-3.0) Basophils (%) (Auto) 0.7 % (0.0-2.0) Sodium Level 149 MMOL/L (136-145) H Potassium Level 4.4 MMOL/L (3.5-5.1) Chloride Level 111 MMOL/L (98-107) H Carbon Dioxide Level 30 MMOL/L (21-32) Anion Gap 8 mmol/L (5-15) Blood Urea Nitrogen 25 mg/dL (7-18) H Creatinine 1.0 MG/DL (0.55-1.30) Estimat Glomerular Filtration Rate mL/min (>60) Glucose Level 103 MG/DL (74-106) Calcium Level 9.0 MG/DL (8.5-10.1) Troponin I 0.126 ng/mL (0.000-0.056) Pro-B-Type Natriuretic Peptide 1554 pg/mL (0-125) H Height (Feet): 5 Height (Inches): 2.00 Weight (Pounds): 85 Medications Current Medications Medications (Trade) Dose Ordered Sig/Zan Route PRN Reason Start Time Stop Time Status Last Admin Dose Admin Acetaminophen (Tylenol) 650 mg Q4H PRN ORAL T>100.5 04/17/18 09:15 05/17/18 09:14 04/17/18 11:13 Albuterol/ Ipratropium (Albuterol/ Ipratropium) 3 ml Q4H PRN HHN Shortness of Breath 04/17/18 09:15 04/22/18 09:14 Amlodipine Besylate (Norvasc) 5 mg DAILY ORAL 04/20/18 09:00 05/20/18 08:59 Aspirin (ASA) 81 mg DAILY ORAL 04/18/18 09:00 05/18/18 08:59 04/19/18 10:01 Bupropion HCl (Wellbutrin XL) 300 mg DAILY ORAL 04/17/18 11:00 05/17/18 10:59 04/19/18 10:01 Dextrose (Dextrose 50%) 25 ml Q30M PRN IV Hypoglycemia 04/17/18 09:15 05/17/18 09:14 Dextrose (Dextrose 50%) 50 ml Q30M PRN IV Hypoglycemia 04/17/18 09:15 05/17/18 09:14 Dextrose/ Electrolytes 1,000 ml @ 50 mls/hr Q20H IV 04/18/18 15:00 05/17/18 14:59 04/19/18 11:00 Famotidine (Pepcid) 20 mg BID ORAL 04/17/18 18:00 05/17/18 17:59 04/19/18 10:01 Hydralazine HCl (Apresoline) 25 mg Q4H PRN ORAL sbp > 160mmHg 04/17/18 14:45 05/17/18 14:44 Lorazepam (Ativan 2mg/ml 1ml) 0.5 mg Q4H PRN IV For Anxiety 04/17/18 09:15 04/24/18 09:14 Memantine (Namenda) 10 mg DAILY ORAL 04/17/18 09:00 05/17/18 08:59 04/19/18 10:01 Mirtazapine (Remeron) 7.5 mg BEDTIME ORAL 04/17/18 21:00 05/17/18 20:59 04/18/18 20:13 Morphine Sulfate (Morphine Sulfate) 1 mg Q4H PRN IVP Severe Pain (Pain Scale 7-10) 04/17/18 09:15 04/24/18 09:14 Nitroglycerin (Ntg) 0.4 mg Q5M X 3 DOSES PRN SL Prn Chest Pain 04/17/18 09:15 05/17/18 09:14 Nitroglycerin (Ntg) 1 patch Q24H TDERMAL 04/17/18 15:00 05/17/18 14:59 04/19/18 14:39 Ondansetron HCl (Zofran) 4 mg Q6H PRN IVP Nausea & Vomiting 04/17/18 09:15 05/17/18 09:14 Polyethylene Glycol (Miralax) 17 gm HSPRN PRN ORAL Constipation 04/17/18 21:00 05/17/18 20:59 Rivaroxaban (Xarelto) 15 mg DAILY ORAL 04/17/18 10:00 05/17/18 09:59 04/19/18 10:00 Temazepam (Restoril) 15 mg HSPRN PRN ORAL Insomnia 04/17/18 21:00 04/24/18 20:59 Assessment/Plan Assessment/Plan Hematology Consultation Chief Complaint: Syncope RFC: Low platelets and erythrocytosis DOS: 04/19/18 HPI 87-year-old female presents ED for evaluation. Patient presents status post syncopal episode. Brought in by EMS. Per EMS patient had syncopal episode while on the toilet tonight. Witnessed by daughter who was with patient during episode. States that patient passed out and she assisted patient to the ground. Upon arrival patient does not remember what happened. Denies chest pain or shortness of breath. States she feels thirsty. Denies fevers chills. Daughter notes patient has history of dementia. No other aggravating relieving factors. Denies any other associated symptoms. Low plts were noted and heme was consulted. Allergies: PENICILLIN (Allergy, Unknown, 04/17/18) Past Medical History: DM Past Surgical History: none Pertinent Family History: none Social History: Denies: smoking, alcohol use, drug use Last Menstrual Period: 4 decades ago Now: No Immunizations: UTD Reviewed Nursing Documentation: PMH: Agreed; PSxH: Agreed History Of Psychiatric Problem: Yes - dementia Review Other Systems: negative except mentioned in HPI Vital Signs Date Time Temp Pulse Resp B/P (MAP) Pulse Ox O2 Delivery O2 Flow Rate FiO2 04/17/18 01:30 98.6 90 22 125/85 100 Room Air General Appearance: no apparent distress Head: normocephalic, atraumatic Eyes: bilateral eye normal inspection ENT: hearing grossly normal Neck: full range of motion Respiratory: chest non-tender, lungs clear Cardiovascular: regular rate, rhythm Gastrointestinal: normal bowel sounds, non tender Rectal: deferred Genitourinary: normal inspection, no CVA tenderness Musculoskeletal: back normal, gait/station normal, nt Neurologic: alert, oriented x3, responsive Psychiatric: judgement/insight normal Skin: normal color, no rash, warm/dry, well hydrated Laboratory Tests Test 04/19/18 05:20 04/19/18 05:22 Phosphorus Level 2.8 MG/DL (2.5-4.9) Magnesium Level 1.7 MG/DL (1.8-2.4) L Total Bilirubin 0.9 MG/DL (0.2-1.0) Direct Bilirubin 0.3 MG/DL (0.0-0.3) Aspartate Amino Transf (AST/SGOT) 26 U/L (15-37) Alanine Aminotransferase (ALT/SGPT) 35 U/L (12-78) Alkaline Phosphatase 85 U/L (46-116) Total Protein 6.2 G/DL (6.4-8.2) L Albumin 3.0 G/DL (3.4-5.0) L White Blood Count 10.2 K/UL (4.8-10.8) Red Blood Count 4.36 M/UL (4.20-5.40) Hemoglobin 14.5 G/DL (12.0-16.0) Hematocrit 43.3 % (37.0-47.0) Mean Corpuscular Volume 99 FL (80-99) Mean Corpuscular Hemoglobin 33.3 PG (27.0-31.0) H Mean Corpuscular Hemoglobin Concent 33.5 G/DL (32.0-36.0) Red Cell Distribution Width 13.1 % (11.6-14.8) Platelet Count 120 K/UL (150-450) L Mean Platelet Volume 7.1 FL (6.5-10.1) Neutrophils (%) (Auto) 70.6 % (45.0-75.0) Lymphocytes (%) (Auto) 21.9 % (20.0-45.0) Monocytes (%) (Auto) 5.3 % (1.0-10.0) Eosinophils (%) (Auto) 1.5 % (0.0-3.0) Basophils (%) (Auto) 0.7 % (0.0-2.0) Sodium Level 149 MMOL/L (136-145) H Potassium Level 4.4 MMOL/L (3.5-5.1) Chloride Level 111 MMOL/L (98-107) H Carbon Dioxide Level 30 MMOL/L (21-32) Anion Gap 8 mmol/L (5-15) Blood Urea Nitrogen 25 mg/dL (7-18) H Creatinine 1.0 MG/DL (0.55-1.30) Estimat Glomerular Filtration Rate mL/min (>60) Glucose Level 103 MG/DL (74-106) Calcium Level 9.0 MG/DL (8.5-10.1) Troponin I 0.126 ng/mL (0.000-0.056) Pro-B-Type Natriuretic Peptide 1554 pg/mL (0-125) H Assessment and Recs: # Thrombocytopenia - potential causes multifactorial, evaluate liver and viral etiologies to begin, also could be related to underlying medications patient has received. --> Hep panel and HIV is negative --> US abd to evaluate for cirrhosis and hsm ordered --> Peripheral smear ordered to evaluate for blasts /schistocytes --> abx and other meds have been reviewed --> ok for ppx if plt >50k w/ either heparin or lovenox --> Transfuse if Plt < 20k and fever, or if Plt < 10k without fever # Erythrocytosis likely due to dehydration --> trend as needed, until improves 17.2-->14.5 # Syncope r/o cardiac etiology, has a PM --> will follow with cards recs # Acute on chronic encephalopathy --> monitor ams # Dehydration The timing of this note does not necessarily reflect the time of the patient was seen. Greatly appreciate consultation! Dillon Calhoun MD Apr 19, 2018 16:48
--- NOTE | 2018-04-19 17:29 | Cardiac Electrophysiology PN ---
Assessment/Plan Assessment/Plan 1. Troponin elevation. The etiology is not clear at this time. Continue aspirin 2. Status post permanent pacemaker implantation. We will get a chest x-ray for confirmation and try to find the brand of the pacemaker. Her echocardiogram showed ejection fraction of 55%. 3. Depression. On Wellbutrin. 4. Syncope while she was the toilet likely vagal. 5. The patient is on Xarelto 15 mg daily 6. HTN on Norvasc 5 daily Subjective Subjective Feeling better. No events Objective Last 24 Hour Vital Signs Date Time Temp Pulse Resp B/P (MAP) Pulse Ox O2 Delivery O2 Flow Rate FiO2 04/19/18 16:00 98.0 77 18 133/71 (91) 98 04/19/18 15:14 74 150/86 04/19/18 14:39 150/86 04/19/18 12:00 97.7 76 18 150/86 (107) 98 04/19/18 12:00 74 04/19/18 09:00 Room Air Room Air 04/19/18 08:48 73 16 Room Air 21 04/19/18 08:00 97.7 76 19 125/70 (88) 99 04/19/18 08:00 73 04/19/18 04:00 97.1 78 19 152/81 (104) 98 04/19/18 04:00 72 04/19/18 00:00 98.0 78 18 123/68 (86) 96 04/19/18 00:00 59 04/18/18 23:25 83 18 Room Air 21 04/18/18 21:00 Room Air Room Air 04/18/18 20:00 98.1 87 18 138/69 (92) 96 04/18/18 19:06 83 Intake and Output 04/18/18 04/19/18 18:59 06:59 Intake Total 60 ml Balance 60 ml Intake Oral 60 ml # Voids 3 1 # Bowel Movements 1 Laboratory Tests Test 04/19/18 05:20 04/19/18 05:22 Phosphorus Level 2.8 MG/DL (2.5-4.9) Magnesium Level 1.7 MG/DL (1.8-2.4) L Total Bilirubin 0.9 MG/DL (0.2-1.0) Direct Bilirubin 0.3 MG/DL (0.0-0.3) Aspartate Amino Transf (AST/SGOT) 26 U/L (15-37) Alanine Aminotransferase (ALT/SGPT) 35 U/L (12-78) Alkaline Phosphatase 85 U/L (46-116) Total Protein 6.2 G/DL (6.4-8.2) L Albumin 3.0 G/DL (3.4-5.0) L White Blood Count 10.2 K/UL (4.8-10.8) Red Blood Count 4.36 M/UL (4.20-5.40) Hemoglobin 14.5 G/DL (12.0-16.0) Hematocrit 43.3 % (37.0-47.0) Mean Corpuscular Volume 99 FL (80-99) Mean Corpuscular Hemoglobin 33.3 PG (27.0-31.0) H Mean Corpuscular Hemoglobin Concent 33.5 G/DL (32.0-36.0) Red Cell Distribution Width 13.1 % (11.6-14.8) Platelet Count 120 K/UL (150-450) L Mean Platelet Volume 7.1 FL (6.5-10.1) Neutrophils (%) (Auto) 70.6 % (45.0-75.0) Lymphocytes (%) (Auto) 21.9 % (20.0-45.0) Monocytes (%) (Auto) 5.3 % (1.0-10.0) Eosinophils (%) (Auto) 1.5 % (0.0-3.0) Basophils (%) (Auto) 0.7 % (0.0-2.0) Sodium Level 149 MMOL/L (136-145) H Potassium Level 4.4 MMOL/L (3.5-5.1) Chloride Level 111 MMOL/L (98-107) H Carbon Dioxide Level 30 MMOL/L (21-32) Anion Gap 8 mmol/L (5-15) Blood Urea Nitrogen 25 mg/dL (7-18) H Creatinine 1.0 MG/DL (0.55-1.30) Estimat Glomerular Filtration Rate mL/min (>60) Glucose Level 103 MG/DL (74-106) Calcium Level 9.0 MG/DL (8.5-10.1) Troponin I 0.126 ng/mL (0.000-0.056) Pro-B-Type Natriuretic Peptide 1554 pg/mL (0-125) H Objective HEAD AND NECK: No JVD. LUNGS: Clear. CARDIOVASCULAR: Regular S1 and S2 with no gallop or murmur. ABDOMEN: Soft. EXTREMITIES: No pitting edema. Pacemaker in the left subclavian area. Yunior Rasheed MD Apr 19, 2018 17:29
--- NOTE | 2018-04-19 18:30 | Progress Note ---
DATE: 04/19/2018 NOTE: "POOR AUDIO QUALITY" SUBJECTIVE: This is an 87-year-old female patient with syncope and dehydration. She is depressed and confused worsened by stress of her medical illness. That is why, her attending has requested daily psychiatric consultation. DIAGNOSIS: Major depressive disorder, mild, recurrent with psychotic features, rule out dementia with psychosis. PLAN: Treat her with Wellbutrin 300 mg daily, Remeron 7.5 mg nightly, Ativan 0.5 mg q.4 h. p.r.n. anxiety or agitation, and Namenda mg nightly. Provided her with 20 minutes of reality-based supportive psychotherapy. Twenty minutes of cognitive behavioral therapy provided to help her identify automatic negative thoughts and help to convert those negative thoughts to more positive thoughts to reduce depression, anxiety, and mood lability. Chart was reviewed. Discussed with staff. Seen and assessed in her room. Mark Bajwa M.D. DR: Luna JOB#: [id number] CC:
--- NOTE | 2018-04-19 19:43 | NUR ---
HAND-OFF: Report given to BRYAN Chen. Endorsed plan of care.
--- NOTE | 2018-04-19 19:58 | NUR ---
NURSE NOTES: Received patient from BRYAN Cuellar. Will continue plan of care.
[2018-04-19 20:00] VITALS: BP 124/65
[2018-04-20] VITALS: BP 122/69
[2018-04-20 04:00] VITALS: BP 117/56
[2018-04-20] MEDS: D5 1/2NS w/KCl 20mEq 1,000 ML IV SCH (06:00)
--- NOTE | 2018-04-20 07:12 | NUR ---
HAND-OFF: Report given to BRYAN Marques.
--- NOTE | 2018-04-20 07:15 | NUR ---
NURSE NOTES: Received patient from BRYAN Martinez. Patient VS stable at this time with no sign of acute distress. Patient sleeping at this time. Patient showing sinus tachycardia on the monitor at this time. Patient on RA with stable saturation. Patient on 24 hour calorie count at this time but is not eating at this time. Will attempt to get her to eat more today. Patient incontinent. Patient skin intact. Patient has a right AC 22G PIV that is patent, asymptomatic, and running D5 1/2 NS with 20mEq KCl running at 50mL/hr. Patient bed in low position with bed alarm on and call light in reach at this time.
[2018-04-20 08:00] VITALS: BP 125/63
[2018-04-20] MEDS: BuPROPion XL 300mg tab ORAL SCH ×2 (09:00→09:02)
[2018-04-20] MEDS: Aspirin Baby 81mg ORAL SCH (09:02)
[2018-04-20] MEDS: Memantine 10mg tab ORAL SCH (09:02)
[2018-04-20] MEDS: Xarelto 15mg tab ORAL SCH (09:03)
[2018-04-20 09:38] LABS: BASOPHILS % (AUTO) 0.6 % (0.0-2.0); EOSINOPHILS % (AUTO) 2.2 % (0.0-3.0); HEMATOCRIT 41.9 % (37.0-47.0); HEMOGLOBIN 14.1 G/DL (12.0-16.0); LYMPHOCYTES % (AUTO) 18.2 % (20.0-45.0); MEAN CORPUSCULAR VOLUME 97 FL (80-99); MONOCYTES % (AUTO) 6.1 % (1.0-10.0); PLATELET COUNT 115 K/UL (150-450); RED BLOOD COUNT 4.32 M/UL (4.20-5.40); RED CELL DISTRIBUTION WIDTH 13.1 % (11.6-14.8); WHITE BLOOD COUNT 12.6 K/UL (4.8-10.8)
[2018-04-20 10:00] LABS: ANION GAP 7 mmol/L (5-15); BLOOD UREA NITROGEN 17 mg/dL (7-18); CALCIUM 8.4 MG/DL (8.5-10.1); CARBON DIOXIDE 26 MMOL/L (21-32); CHLORIDE 107 MMOL/L (98-107); CREATININE 0.9 MG/DL (0.55-1.30); POTASSIUM 3.8 MMOL/L (3.5-5.1); SODIUM 140 MMOL/L (136-145)
--- NOTE | 2018-04-20 10:32 | NUR ---
NURSE NOTES: Patient refused wellbutrin XL this morning. Patient spits out any medication that is not crushed. This medication cannot be crushed. Pharmacy reports that there is another form that can be given in doses of 100mg every 3 hours. Will follow up with doctor to get order changed.
--- NOTE | 2018-04-20 11:48 | Pulmonology Progress Note ---
Assessment/Plan Problems: (1) ACS (acute coronary syndrome) (2) Hypernatremia (3) Acute encephalopathy (4) Diabetes mellitus Assessment/Plan no new complains doing better, not talking echo reviewed, normal EF CXR reviewed, No acute infiltrate, Na slightly high continue IV fluids calorie count. dvt prophylaxis. d/w daughter, she wants long-term placement Subjective ROS Limited/Unobtainable: No Constitutional: Reports: no symptoms HEENT: Repors: no symptoms Allergies: Coded Allergies: PENICILLINS (Verified Allergy, Unknown, 04/17/18) Uncoded Allergies: PENICILLIN (Allergy, Unknown, 04/17/18) Objective Last 24 Hour Vital Signs Date Time Temp Pulse Resp B/P (MAP) Pulse Ox O2 Delivery O2 Flow Rate FiO2 04/20/18 09:03 111 125/63 04/20/18 04:00 98.4 83 18 117/56 (76) 90 04/20/18 03:17 80 04/20/18 00:00 97.4 89 18 122/69 (86) 92 04/19/18 23:30 74 04/19/18 21:00 Room Air Room Air 04/19/18 20:41 84 04/19/18 20:00 97.6 85 18 124/65 (84) 93 04/19/18 20:00 80 16 Room Air 21 04/19/18 16:00 77 04/19/18 16:00 98.0 77 18 133/71 (91) 98 04/19/18 15:14 74 150/86 04/19/18 14:39 150/86 04/19/18 12:00 97.7 76 18 150/86 (107) 98 04/19/18 12:00 74 Intake and Output 04/19/18 04/20/18 19:00 07:00 Intake Total 170 ml 550 ml Balance 170 ml 550 ml Intake Oral 120 ml IV Total 50 ml 550 ml # Voids 3 2 Objective doing better, more talkative HEENT: normocephalic, anicteric Respiratory/Chest: chest wall non-tender, lungs clear Breasts: no masses Cardiovascular: normal peripheral pulses Abdomen: normal bowel sounds, soft, non tender Neurologic/Psychiatric: fit model II-XII grossly normal Laboratory Tests 04/20/18 09:10: White Blood Count 12.6H, Red Blood Count 4.32, Hemoglobin 14.1, Hematocrit 41.9 , Mean Corpuscular Volume 97, Mean Corpuscular Hemoglobin 32.7H, Mean Corpuscular Hemoglobin Concent 33.7, Red Cell Distribution Width 13.1, Platelet Count 115L, Mean Platelet Volume 6.7, Neutrophils (%) (Auto) 73.0, Lymphocytes ( %) (Auto) 18.2L, Monocytes (%) (Auto) 6.1, Eosinophils (%) (Auto) 2.2, Basophils (%) (Auto) 0.6, Sodium Level 140, Potassium Level 3.8, Chloride Level 107, Carbon Dioxide Level 26, Anion Gap 7, Blood Urea Nitrogen 17, Creatinine 0.9, Estimat Glomerular Filtration Rate , Glucose Level 111H, Calcium Level 8.4L Current Medications Medications (Trade) Dose Ordered Sig/Zan Route PRN Reason Start Time Stop Time Status Last Admin Dose Admin Acetaminophen (Tylenol) 650 mg Q4H PRN ORAL T>100.5 04/17/18 09:15 05/17/18 09:14 04/17/18 11:13 Albuterol/ Ipratropium (Albuterol/ Ipratropium) 3 ml Q4H PRN HHN Shortness of Breath 04/17/18 09:15 04/22/18 09:14 Amlodipine Besylate (Norvasc) 5 mg DAILY ORAL 04/20/18 09:00 05/20/18 08:59 04/20/18 09:03 Aspirin (ASA) 81 mg DAILY ORAL 04/18/18 09:00 05/18/18 08:59 04/20/18 09:02 Bupropion HCl (Wellbutrin) 100 mg Q8HR ORAL 04/20/18 14:00 05/20/18 13:59 Dextrose (Dextrose 50%) 25 ml Q30M PRN IV Hypoglycemia 04/17/18 09:15 05/17/18 09:14 Dextrose (Dextrose 50%) 50 ml Q30M PRN IV Hypoglycemia 04/17/18 09:15 05/17/18 09:14 Dextrose/ Electrolytes 1,000 ml @ 50 mls/hr Q20H IV 04/18/18 15:00 05/17/18 14:59 04/20/18 06:00 Famotidine (Pepcid) 20 mg BID ORAL 04/17/18 18:00 05/17/18 17:59 04/20/18 09:02 Hydralazine HCl (Apresoline) 25 mg Q4H PRN ORAL sbp > 160mmHg 04/17/18 14:45 05/17/18 14:44 Lorazepam (Ativan 2mg/ml 1ml) 0.5 mg Q4H PRN IV For Anxiety 04/17/18 09:15 04/24/18 09:14 Memantine (Namenda) 10 mg DAILY ORAL 04/17/18 09:00 05/17/18 08:59 04/20/18 09:02 Mirtazapine (Remeron) 7.5 mg BEDTIME ORAL 04/17/18 21:00 05/17/18 20:59 04/19/18 20:17 Morphine Sulfate (Morphine Sulfate) 1 mg Q4H PRN IVP Severe Pain (Pain Scale 7-10) 04/17/18 09:15 04/24/18 09:14 Nitroglycerin (Ntg) 0.4 mg Q5M X 3 DOSES PRN SL Prn Chest Pain 04/17/18 09:15 05/17/18 09:14 Nitroglycerin (Ntg) 1 patch Q24H TDERMAL 04/17/18 15:00 05/17/18 14:59 04/19/18 14:39 Ondansetron HCl (Zofran) 4 mg Q6H PRN IVP Nausea & Vomiting 04/17/18 09:15 05/17/18 09:14 Polyethylene Glycol (Miralax) 17 gm HSPRN PRN ORAL Constipation 04/17/18 21:00 05/17/18 20:59 Rivaroxaban (Xarelto) 15 mg DAILY ORAL 04/17/18 10:00 05/17/18 09:59 04/20/18 09:03 Temazepam (Restoril) 15 mg HSPRN PRN ORAL Insomnia 04/17/18 21:00 04/24/18 20:59 Amirah Veliz MD Apr 20, 2018 11:48
[2018-04-20 12:00] VITALS: BP 85/51
--- NOTE | 2018-04-20 13:36 | Infectious Diseases Prog Note ---
Assessment/Plan Assessment/Plan Abx: NOne Assessment: Syncopal episode, likely due to dehydration (+ RANJEET, hemoconcentration) Afebrile NO leukocytosis- no infectious process at present -u/a neg -CXR: Left chest pacemaker again demonstrated. Lungs and pleural spaces remain clear. The heart size is normal DM2 Dementia Plan: -COntinue to monitor off abx -f/u cx -Monitor CBC/CMP, temperatures -aspiration precautions Thank you for this consultation. Will continue to follow along with you. Discussed with RN. Subjective Allergies: Coded Allergies: PENICILLINS (Verified Allergy, Unknown, 04/17/18) Uncoded Allergies: PENICILLIN (Allergy, Unknown, 04/17/18) Subjective afebrile no leukocytosis off abx Objective Vital Signs Last 24 Hour Vital Signs Date Time Temp Pulse Resp B/P (MAP) Pulse Ox O2 Delivery O2 Flow Rate FiO2 04/20/18 09:03 111 125/63 04/20/18 04:00 98.4 83 18 117/56 (76) 90 04/20/18 03:17 80 04/20/18 00:00 97.4 89 18 122/69 (86) 92 04/19/18 23:30 74 04/19/18 21:00 Room Air Room Air 04/19/18 20:41 84 04/19/18 20:00 97.6 85 18 124/65 (84) 93 04/19/18 20:00 80 16 Room Air 21 04/19/18 16:00 77 04/19/18 16:00 98.0 77 18 133/71 (91) 98 04/19/18 15:14 74 150/86 04/19/18 14:39 150/86 Height (Feet): 5 Height (Inches): 2.00 Weight (Pounds): 85 Objective GENERAL: Calm in bed, oriented x2, in no acute distress. CARDIOVASCULAR: No murmur. LUNGS: Distant and clear. ABDOMEN: Bowel sounds positive. Nontender. Nondistended. EXTREMITIES: No cyanosis or edema. NEUROLOGIC: The patient moves all extremities, slightly weak. Laboratory Tests Test 04/20/18 09:10 White Blood Count 12.6 K/UL (4.8-10.8) H Red Blood Count 4.32 M/UL (4.20-5.40) Hemoglobin 14.1 G/DL (12.0-16.0) Hematocrit 41.9 % (37.0-47.0) Mean Corpuscular Volume 97 FL (80-99) Mean Corpuscular Hemoglobin 32.7 PG (27.0-31.0) H Mean Corpuscular Hemoglobin Concent 33.7 G/DL (32.0-36.0) Red Cell Distribution Width 13.1 % (11.6-14.8) Platelet Count 115 K/UL (150-450) L Mean Platelet Volume 6.7 FL (6.5-10.1) Neutrophils (%) (Auto) 73.0 % (45.0-75.0) Lymphocytes (%) (Auto) 18.2 % (20.0-45.0) L Monocytes (%) (Auto) 6.1 % (1.0-10.0) Eosinophils (%) (Auto) 2.2 % (0.0-3.0) Basophils (%) (Auto) 0.6 % (0.0-2.0) Sodium Level 140 MMOL/L (136-145) Potassium Level 3.8 MMOL/L (3.5-5.1) Chloride Level 107 MMOL/L (98-107) Carbon Dioxide Level 26 MMOL/L (21-32) Anion Gap 7 mmol/L (5-15) Blood Urea Nitrogen 17 mg/dL (7-18) Creatinine 0.9 MG/DL (0.55-1.30) Estimat Glomerular Filtration Rate mL/min (>60) Glucose Level 111 MG/DL (74-106) H Calcium Level 8.4 MG/DL (8.5-10.1) L Current Medications Medications (Trade) Dose Ordered Sig/Zan Route PRN Reason Start Time Stop Time Status Last Admin Dose Admin Acetaminophen (Tylenol) 650 mg Q4H PRN ORAL T>100.5 04/17/18 09:15 05/17/18 09:14 04/17/18 11:13 Albuterol/ Ipratropium (Albuterol/ Ipratropium) 3 ml Q4H PRN HHN Shortness of Breath 04/17/18 09:15 04/22/18 09:14 Amlodipine Besylate (Norvasc) 5 mg DAILY ORAL 04/20/18 09:00 4/5/19 08:59 04/20/18 09:03 Aspirin (ASA) 81 mg DAILY ORAL 04/18/18 09:00 05/18/18 08:59 04/20/18 09:02 Bupropion HCl (Wellbutrin) 100 mg Q8HR ORAL 04/20/18 14:00 05/20/18 13:59 Dextrose (Dextrose 50%) 25 ml Q30M PRN IV Hypoglycemia 04/17/18 09:15 05/17/18 09:14 Dextrose (Dextrose 50%) 50 ml Q30M PRN IV Hypoglycemia 04/17/18 09:15 05/17/18 09:14 Dextrose/ Electrolytes 1,000 ml @ 50 mls/hr Q20H IV 04/18/18 15:00 05/17/18 14:59 04/20/18 06:00 Famotidine (Pepcid) 20 mg BID ORAL 04/17/18 18:00 05/17/18 17:59 04/20/18 09:02 Hydralazine HCl (Apresoline) 25 mg Q4H PRN ORAL sbp > 160mmHg 04/17/18 14:45 05/17/18 14:44 Lorazepam (Ativan 2mg/ml 1ml) 0.5 mg Q4H PRN IV For Anxiety 04/17/18 09:15 04/24/18 09:14 Memantine (Namenda) 10 mg DAILY ORAL 04/17/18 09:00 05/17/18 08:59 04/20/18 09:02 Mirtazapine (Remeron) 7.5 mg BEDTIME ORAL 04/17/18 21:00 05/17/18 20:59 04/19/18 20:17 Morphine Sulfate (Morphine Sulfate) 1 mg Q4H PRN IVP Severe Pain (Pain Scale 7-10) 04/17/18 09:15 04/24/18 09:14 Nitroglycerin (Ntg) 0.4 mg Q5M X 3 DOSES PRN SL Prn Chest Pain 04/17/18 09:15 05/17/18 09:14 Nitroglycerin (Ntg) 1 patch Q24H TDERMAL 04/17/18 15:00 05/17/18 14:59 04/19/18 14:39 Ondansetron HCl (Zofran) 4 mg Q6H PRN IVP Nausea & Vomiting 04/17/18 09:15 05/17/18 09:14 Polyethylene Glycol (Miralax) 17 gm HSPRN PRN ORAL Constipation 04/17/18 21:00 05/17/18 20:59 Rivaroxaban (Xarelto) 15 mg DAILY ORAL 04/17/18 10:00 05/17/18 09:59 04/20/18 09:03 Temazepam (Restoril) 15 mg HSPRN PRN ORAL Insomnia 04/17/18 21:00 04/24/18 20:59 Radha Rothman M.D. Apr 20, 2018 13:36
--- NOTE | 2018-04-20 14:31 | Nephrology Progress Note ---
Assessment/Plan Problem List: (1) Dehydration (2) ACS (acute coronary syndrome) Assessment: elevated troponin (3) Hypernatremia Assessment: resolved Assessment Dehydration- Syncope - Acute on chronic encephalopathy elevated troponin high Hgb due to hemoconcentration Plan Hydrate- adjust BP meds adjust mind altering meds Monitor lytes and renal parameters Gastric mucosa support Per orders Subjective ROS Limited/Unobtainable: No Constitutional: Reports: malaise, weakness Objective Objective Last 24 Hour Vital Signs Date Time Temp Pulse Resp B/P (MAP) Pulse Ox O2 Delivery O2 Flow Rate FiO2 04/20/18 09:03 111 125/63 04/20/18 04:00 98.4 83 18 117/56 (76) 90 04/20/18 03:17 80 04/20/18 00:00 97.4 89 18 122/69 (86) 92 04/19/18 23:30 74 04/19/18 21:00 Room Air Room Air 04/19/18 20:41 84 04/19/18 20:00 97.6 85 18 124/65 (84) 93 04/19/18 20:00 80 16 Room Air 21 04/19/18 16:00 77 04/19/18 16:00 98.0 77 18 133/71 (91) 98 04/19/18 15:14 74 150/86 04/19/18 14:39 150/86 Intake and Output 04/19/18 04/20/18 19:00 07:00 Intake Total 170 ml 550 ml Balance 170 ml 550 ml Intake Oral 120 ml IV Total 50 ml 550 ml # Voids 3 2 Laboratory Tests 04/20/18 09:10: White Blood Count 12.6H, Red Blood Count 4.32, Hemoglobin 14.1, Hematocrit 41.9 , Mean Corpuscular Volume 97, Mean Corpuscular Hemoglobin 32.7H, Mean Corpuscular Hemoglobin Concent 33.7, Red Cell Distribution Width 13.1, Platelet Count 115L, Mean Platelet Volume 6.7, Neutrophils (%) (Auto) 73.0, Lymphocytes ( %) (Auto) 18.2L, Monocytes (%) (Auto) 6.1, Eosinophils (%) (Auto) 2.2, Basophils (%) (Auto) 0.6, Sodium Level 140, Potassium Level 3.8, Chloride Level 107, Carbon Dioxide Level 26, Anion Gap 7, Blood Urea Nitrogen 17, Creatinine 0.9, Estimat Glomerular Filtration Rate , Glucose Level 111H, Calcium Level 8.4L Height (Feet): 5 Height (Inches): 2.00 Weight (Pounds): 85 General Appearance: no apparent distress, lethargic Cardiovascular: tachycardia Respiratory/Chest: decreased breath sounds Abdomen: distended Sebastian Mullen MD Apr 20, 2018 14:31
[2018-04-20] MEDS: Nitroglycerin Patch 0.4mg TDERMAL SCH (15:00)
--- NOTE | 2018-04-20 15:29 | General Progress Note ---
Assessment/Plan Problem List: (1) UTI (urinary tract infection) ICD Codes: N39.0 - Urinary tract infection, site not specified SNOMED: 49572045 (2) Dehydration ICD Codes: E86.0 - Dehydration SNOMED: 94864632 (3) Syncope ICD Codes: R55 - Syncope and collapse SNOMED: 875599009 Qualifiers: Qualified Codes: R55 - Syncope and collapse Status: stable, progressing Assessment/Plan pt diet abx neuro psyc cardio eval cbc bmp am Subjective Constitutional: Reports: weakness Allergies: Coded Allergies: PENICILLINS (Verified Allergy, Unknown, 04/17/18) Uncoded Allergies: PENICILLIN (Allergy, Unknown, 04/17/18) All Systems: reviewed and negative except above Subjective calm in bed sl confused Objective Last 24 Hour Vital Signs Date Time Temp Pulse Resp B/P (MAP) Pulse Ox O2 Delivery O2 Flow Rate FiO2 04/20/18 15:00 93/47 04/20/18 09:03 111 125/63 04/20/18 04:00 98.4 83 18 117/56 (76) 90 04/20/18 03:17 80 04/20/18 00:00 97.4 89 18 122/69 (86) 92 04/19/18 23:30 74 04/19/18 21:00 Room Air Room Air 04/19/18 20:41 84 04/19/18 20:00 97.6 85 18 124/65 (84) 93 04/19/18 20:00 80 16 Room Air 21 04/19/18 16:00 77 04/19/18 16:00 98.0 77 18 133/71 (91) 98 Intake and Output 04/19/18 04/20/18 18:59 06:59 Intake Total 120 ml 550 ml Balance 120 ml 550 ml Intake Oral 120 ml IV Total 550 ml # Voids 3 2 Laboratory Tests 04/20/18 09:10: White Blood Count 12.6H, Red Blood Count 4.32, Hemoglobin 14.1, Hematocrit 41.9 , Mean Corpuscular Volume 97, Mean Corpuscular Hemoglobin 32.7H, Mean Corpuscular Hemoglobin Concent 33.7, Red Cell Distribution Width 13.1, Platelet Count 115L, Mean Platelet Volume 6.7, Neutrophils (%) (Auto) 73.0, Lymphocytes ( %) (Auto) 18.2L, Monocytes (%) (Auto) 6.1, Eosinophils (%) (Auto) 2.2, Basophils (%) (Auto) 0.6, Sodium Level 140, Potassium Level 3.8, Chloride Level 107, Carbon Dioxide Level 26, Anion Gap 7, Blood Urea Nitrogen 17, Creatinine 0.9, Estimat Glomerular Filtration Rate , Glucose Level 111H, Calcium Level 8.4L Height (Feet): 5 Height (Inches): 2.00 Weight (Pounds): 85 General Appearance: lethargic EENT: normal ENT inspection Neck: normal alignment Cardiovascular: normal peripheral pulses, normal rate, regular rhythm Respiratory/Chest: chest wall non-tender, lungs clear, normal breath sounds Abdomen: normal bowel sounds, non tender, soft Extremities: normal inspection Edema: no edema noted Arm (L), no edema noted Arm (R), no edema noted Leg (L), no edema noted Leg (R), no edema noted Pedal (L), no edema noted Pedal (R), no edema noted Generalized Neurologic: motor weakness Skin: normal pigmentation, warm/dry Brad Viveros DO Apr 20, 2018 15:29
--- NOTE | 2018-04-20 15:35 | NUR ---
NURSE NOTES: Patient HR in sustained sinus tachycardia in 130's at this time. Dr Rasheed notified and ordered stat ECG.
--- NOTE | 2018-04-20 15:58 | General Progress Note ---
Assessment/Plan Assessment/Plan Assessment and Recs: # Thrombocytopenia - potential causes multifactorial, evaluate liver and viral etiologies to begin, also could be related to underlying medications patient has received. --> Hep panel and HIV is negative --> US abd to evaluate for cirrhosis and hsm ordered --> Peripheral smear ordered to evaluate for blasts /schistocytes, is wnl --> abx and other meds have been reviewed --> ok for ppx if plt >50k w/ either heparin or lovenox --> Transfuse if Plt < 20k and fever, or if Plt < 10k without fever # Erythrocytosis likely due to dehydration --> trend as needed, until improves 17.2-->14.5-->14.1 # Coagulopathy with elevated ptt --> check a mixing study to see if ptt corrects --> if corrects, then has a factor deficiency # Syncope r/o cardiac etiology, has a PM --> will follow with cards recs # Acute on chronic encephalopathy --> monitor ams # Dehydration The timing of this note does not necessarily reflect the time of the patient was seen. Greatly appreciate consultation! Subjective HEENT: Denies: no symptoms, eye pain, blurred vision, tearing, double vision, ear pain, ear discharge, nose pain, nose congestion, throat pain, throat swelling, mouth pain, mouth swelling, other Cardiovascular: Denies: no symptoms, chest pain, edema, irregular heart rate, lightheadedness, palpitations, syncope, other Respiratory: Denies: no symptoms, cough, orthopnea, shortness of breath, SOB with excertion, SOB at rest, sputum, stridor, wheezing, other Gastrointestinal/Abdominal: Denies: no symptoms, abdomen distended, abdominal pain, black stools, tarry stools, blood in stool, constipated, diarrhea, difficulty swallowing, nausea, poor appetite, poor fluid intake, rectal bleeding , vomiting, other Genitourinary: Denies: no symptoms, burning, discharge, frequency, flank pain, hematuria, incontinence, pain, urgency, other Neurologic/Psychiatric: Denies: no symptoms, anxiety, depressed, emotional problems, headache, numbness, paresthesia, pre-existing deficit, seizure, tingling, tremors, weakness, other Endocrine: Denies: no symptoms, excessive sweating, flushing, intolerance to cold, intolerance to heat, increased hunger, increased thirst, increased urine, unexplained weight gain, unexplained weight loss, other Hematologic/Lymphatic: Denies: no symptoms, anemia, easy bleeding, easy bruising, other Allergies: Coded Allergies: PENICILLINS (Verified Allergy, Unknown, 04/17/18) Uncoded Allergies: PENICILLIN (Allergy, Unknown, 04/17/18) Subjective 04/20: daughter wants long-term placement, cbc reviewed plts at 110k Objective Last 24 Hour Vital Signs Date Time Temp Pulse Resp B/P (MAP) Pulse Ox O2 Delivery O2 Flow Rate FiO2 04/20/18 15:00 93/47 04/20/18 09:03 111 125/63 04/20/18 04:00 98.4 83 18 117/56 (76) 90 04/20/18 03:17 80 04/20/18 00:00 97.4 89 18 122/69 (86) 92 04/19/18 23:30 74 04/19/18 21:00 Room Air Room Air 04/19/18 20:41 84 04/19/18 20:00 97.6 85 18 124/65 (84) 93 04/19/18 20:00 80 16 Room Air 21 04/19/18 16:00 77 04/19/18 16:00 98.0 77 18 133/71 (91) 98 Intake and Output 04/19/18 04/20/18 18:59 06:59 Intake Total 120 ml 550 ml Balance 120 ml 550 ml Intake Oral 120 ml IV Total 550 ml # Voids 3 2 Laboratory Tests 04/20/18 09:10: White Blood Count 12.6H, Red Blood Count 4.32, Hemoglobin 14.1, Hematocrit 41.9 , Mean Corpuscular Volume 97, Mean Corpuscular Hemoglobin 32.7H, Mean Corpuscular Hemoglobin Concent 33.7, Red Cell Distribution Width 13.1, Platelet Count 115L, Mean Platelet Volume 6.7, Neutrophils (%) (Auto) 73.0, Lymphocytes ( %) (Auto) 18.2L, Monocytes (%) (Auto) 6.1, Eosinophils (%) (Auto) 2.2, Basophils (%) (Auto) 0.6, Sodium Level 140, Potassium Level 3.8, Chloride Level 107, Carbon Dioxide Level 26, Anion Gap 7, Blood Urea Nitrogen 17, Creatinine 0.9, Estimat Glomerular Filtration Rate , Glucose Level 111H, Calcium Level 8.4L Height (Feet): 5 Height (Inches): 2.00 Weight (Pounds): 85 Objective Gen: NAD, A+O x2 Head: normocephalic, atraumatic Eyes: bilateral eye normal inspection ENT: hearing grossly normal Neck: full range of motion Respiratory: chest non-tender, lungs clear Cardiovascular: regular rate, rhythm Gastrointestinal: normal bowel sounds, non tender Rectal: deferred Genitourinary: normal inspection Musculoskeletal: back normal, gait/station normal, nt Psychiatric: judgement/insight normal Skin: normal color, no rash, warm/dry, well hydrated Dillon Calhoun MD Apr 20, 2018 15:58
[2018-04-20 16:00] VITALS: BP 93/56
--- NOTE | 2018-04-20 16:00 | NUR ---
NURSE NOTES: Notified Dr Rasheed that the patient's BP has been low in the systolic 90s at this time and I held the nitro patch. Dr Rasheed ordered that the nitro patch be discontinued.
--- NOTE | 2018-04-20 16:00 | NUR ---
NURSE NOTES: Dr Rasheed reported that the HR is just sinus tachycardia.
--- NOTE | 2018-04-20 17:29 | Cardiac Electrophysiology PN ---
Assessment/Plan Assessment/Plan 1. Troponin elevation. Levels are flat. Continue aspirin. No CP. EF normal. ECG no ST elevation Schedule for stress test in am. 2. Status post permanent pacemaker implantation. Awaiting pacer interrogation Echocardiogram showed EF 55%. 3. Syncope while she was the toilet likely vagal. Pacer interrogation pending 4. HTN on Norvasc 5 daily 5. sinus tachycardia 6. Depression. On Wellbutrin. Subjective Subjective No events. Was tachycardic in 120s but asymptomatic Objective Last 24 Hour Vital Signs Date Time Temp Pulse Resp B/P (MAP) Pulse Ox O2 Delivery O2 Flow Rate FiO2 04/20/18 15:00 93/47 04/20/18 09:03 111 125/63 04/20/18 04:00 98.4 83 18 117/56 (76) 90 04/20/18 03:17 80 04/20/18 00:00 97.4 89 18 122/69 (86) 92 04/19/18 23:30 74 04/19/18 21:00 Room Air Room Air 04/19/18 20:41 84 04/19/18 20:00 97.6 85 18 124/65 (84) 93 04/19/18 20:00 80 16 Room Air 21 Intake and Output 04/19/18 04/20/18 18:59 06:59 Intake Total 120 ml 550 ml Balance 120 ml 550 ml Intake Oral 120 ml IV Total 550 ml # Voids 3 2 Laboratory Tests Test 04/20/18 09:10 White Blood Count 12.6 K/UL (4.8-10.8) H Red Blood Count 4.32 M/UL (4.20-5.40) Hemoglobin 14.1 G/DL (12.0-16.0) Hematocrit 41.9 % (37.0-47.0) Mean Corpuscular Volume 97 FL (80-99) Mean Corpuscular Hemoglobin 32.7 PG (27.0-31.0) H Mean Corpuscular Hemoglobin Concent 33.7 G/DL (32.0-36.0) Red Cell Distribution Width 13.1 % (11.6-14.8) Platelet Count 115 K/UL (150-450) L Mean Platelet Volume 6.7 FL (6.5-10.1) Neutrophils (%) (Auto) 73.0 % (45.0-75.0) Lymphocytes (%) (Auto) 18.2 % (20.0-45.0) L Monocytes (%) (Auto) 6.1 % (1.0-10.0) Eosinophils (%) (Auto) 2.2 % (0.0-3.0) Basophils (%) (Auto) 0.6 % (0.0-2.0) Sodium Level 140 MMOL/L (136-145) Potassium Level 3.8 MMOL/L (3.5-5.1) Chloride Level 107 MMOL/L (98-107) Carbon Dioxide Level 26 MMOL/L (21-32) Anion Gap 7 mmol/L (5-15) Blood Urea Nitrogen 17 mg/dL (7-18) Creatinine 0.9 MG/DL (0.55-1.30) Estimat Glomerular Filtration Rate mL/min (>60) Glucose Level 111 MG/DL (74-106) H Calcium Level 8.4 MG/DL (8.5-10.1) L Objective HEAD AND NECK: No JVD. LUNGS: Clear. CARDIOVASCULAR: TachyS1 and S2 with no gallop or murmur. ABDOMEN: Soft. EXTREMITIES: No pitting edema. Pacemaker in the left subclavian area. Yunior Rasheed MD Apr 20, 2018 17:29
[2018-04-20] MEDS ORDERED: Lexiscan 0.4mg/5ml syringe IV PRN (17:45)
[2018-04-20] MEDS: dilTIAZem HCl 30mg tab ORAL SCH (17:53)
--- NOTE | 2018-04-20 19:16 | Progress Note ---
DATE: 04/20/2018 SUBJECTIVE: The patient is an 87-year-old female patient with sepsis and dehydration, but because of her medical problems, she is having decline in cognition below baseline. That is why, her attending physician has requested daily psychiatric consultation for this patient. MENTAL STATUS EXAMINATION: This is an 87-year-old female. Appearance is disheveled. Attitude, irritable and agitated. Affect, guarded and restricted. Intellect poor. Mood depressed and anxious. Motor activity, psychomotor agitation. Attention is poor. Orientation x2. Speech is pressured. Thought process, disorganized and illogical. Insight and judgment is poor. DIAGNOSIS: Major depressive disorder, mild, recurrent with psychosis, rule out dementia with psychosis. PLAN: Treat her with Wellbutrin 300 mg daily, Remeron 7.5 mg at bedtime,and Ativan 0.5 mg IV every four hours p.r.n. anxiety and agitation. Provided her with 20 minutes of reality-based supportive psychotherapy and 20 minutes of cognitive behavioral therapy provided to help this patient identify her automatic negative thoughts and help her convert those negative thoughts to more positive thoughts to reduce depression, anxiety, and suicidality. A 20 minutes of cognitive behavioral therapy provided to the patient. Chart was reviewed. Discussed with staff. The patient is seen and assessed at bedside. Mark Bajwa M.D. DR: RIDGE JOB#: [id number] CC:
--- NOTE | 2018-04-20 19:30 | NUR ---
HAND-OFF: Report given to BRYAN Ruiz. Patient VS stable at this time with no sign of acute distress. Patient HR 85 in Sinus rhythm at this time. Patient unable to eat anything today. Endorsed to follow up.
--- NOTE | 2018-04-20 19:31 | NUR ---
NURSE NOTES: Received report from BRYAN Marques. Patient in bed awake showing no signs of acute distress. Respiration even and non labored on room air. No SOB. Vital stable. Bed in lowest position. Call light within reach. All needs attended and met. Will continue to monitor.
[2018-04-20 20:00] VITALS: BP 107/55
--- NOTE | 2018-04-20 23:36 | NUR ---
NURSE NOTES: Patient refused all scheduled medications and kept her mouth close. Attempted x3, patient still refused and not cooperating. AOx1.
[2018-04-21] VITALS: BP 103/47
--- NOTE | 2018-04-21 01:16 | Consultation ---
DATE OF CONSULTATION: 04/20/2018 NOTE: POOR AUDIO CONSULTATION PROGRESS NOTE CONSULTING PHYSICIAN: Kari Bishop PsyD. TREATING ATTENDING PHYSICIAN: Brad Viveros D.O. HISTORY OF PRESENT ILLNESS: The patient is an 87-year-old female patient, currently lives at home, came to [facility] for syncope . She has been confused, and for these reasons, she is also referred for psychotherapeutic services. This clinician assessed this patient. The patient is slightly confused and disoriented. States that she could not remember why she had syncopal episode and she was brought into the hospital. She states that she cannot remember which hospital she is in at this time. She feels very helpless and hopeless. Denies suicidal or homicidal thoughts of ideation. Denies any auditory or visual hallucinations; however, has been feeling generally depressed. The patient states that she feels more depressed at this time because she cannot remember what happened to her. She has been cooperative. The patient is alert and oriented to person. PAST MEDICAL HISTORY: No medical history. ALLERGIES: The patient has allergies to penicillin. SUBSTANCE USE HISTORY: The patient denies history of alcohol use, illicit substance use. PSYCHIATRIC HISTORY: The patient states she does not have a rather significant history of mental illness. Records indicate the patient has a history of major depression. SOCIAL HISTORY: The patient states that she lives independently. She is a 87-year-old patient. MENTAL STATUS EXAMINATION: The patient is alert, oriented to person and place. Mood dysphoric. Affect is congruent. Thought process, disorganized. Thought content, linear. She has poor attention and concentration. Poor insight, judgment, impulse control. DIAGNOSIS: Chronic major depressive disorder, moderate without psychotic features. PLAN: Today, I assessed the patient. Provided the patient with: 1. Reality orientation with a focus on improving cognitive function of an individual who is confused and disorganized. Oriented to person, place, time, and situation. 2. Treat the patient's confusion and disorientation. 3. Provide the patient with supportive psychotherapy focused on identifying positive emotions . 4. Provide the patient with cognitive behavioral therapy feelings of helplessness and hopelessness could not recall what happened to her before coming to the hospital and she continued to be helpless and hopeless as a result. 5. Exploring positive . Provide the patient positive coping skills including communication skills. 6. Continue behavioral management for this patient. Trying to maintain medication compliance . Psychotherapy provided to this patient, 50 minutes. Kari Bishop PsyD. DR: BETO JOB#: [id number] CC:
[2018-04-21] MEDS: D5 1/2NS w/KCl 20mEq 1,000 ML IV SCH ×2 (02:13→23:22)
[2018-04-21 04:00] VITALS: BP 92/56
[2018-04-21] MEDS: dilTIAZem HCl 30mg tab ORAL SCH ×4 (06:00→18:00)
[2018-04-21 07:09] LABS: BASOPHILS % (AUTO) 0.5 % (0.0-2.0); EOSINOPHILS % (AUTO) 3.1 % (0.0-3.0); HEMATOCRIT 38.6 % (37.0-47.0); HEMOGLOBIN 13.2 G/DL (12.0-16.0); LYMPHOCYTES % (AUTO) 29.5 % (20.0-45.0); MEAN CORPUSCULAR VOLUME 97 FL (80-99); PLATELET COUNT 111 K/UL (150-450); RED BLOOD COUNT 3.98 M/UL (4.20-5.40); RED CELL DISTRIBUTION WIDTH 13.1 % (11.6-14.8); WHITE BLOOD COUNT 11.5 K/UL (4.8-10.8)
--- NOTE | 2018-04-21 07:11 | NUR ---
HAND-OFF: Report given to Edmar and BRYAN Sotomayor.
--- NOTE | 2018-04-21 07:15 | NUR ---
NURSE NOTES: Received report from BRYAN Minor. Patient is in stable condition. No acute distress/SOB noted. Still on NPO for stress test. IV is running. Will continue plan of care.
[2018-04-21 07:22] LABS: ANION GAP 6 mmol/L (5-15); BLOOD UREA NITROGEN 15 mg/dL (7-18); CALCIUM 8.3 MG/DL (8.5-10.1); CARBON DIOXIDE 29 MMOL/L (21-32); CHLORIDE 108 MMOL/L (98-107); CREATININE 0.9 MG/DL (0.55-1.30); POTASSIUM 4.5 MMOL/L (3.5-5.1); SODIUM 142 MMOL/L (136-145)
[2018-04-21 08:00] VITALS: BP 120/58
--- NOTE | 2018-04-21 08:07 | NUR ---
NURSE NOTES: Resident is in stable condition. Resident went to cardiology department for stress test.
--- NOTE | 2018-04-21 08:35 | Diagnostic Imaging Report ---
Indication: Abdominal pain Technique: Espitia-scale and duplex images of the upper abdomen were obtained. Doppler interrogation of the pancreatic vessels Comparison: none Findings: Gallbladder demonstrates gallstones. No gallbladder wall thickening nor pericholecystic fluid Sonographic Lara's sign is negative. Common bile duct measures 3 mm in diameter. No intrahepatic biliary ductal dilatation. Liver demonstrates normal echogenicity, no focal abnormality. No surface nodularity Portal vein and hepatic veins are patent. Pancreas is unremarkable. Spleen is unremarkable. Left kidney measures 10.9 cm in length. Right kidney measures 10.2 cm length. Both kidneys demonstrate normal echogenicity. There is no hydronephrosis. Both kidneys demonstrate cysts. Echogenic foci are seen in the left renal sinus, may represent small calyceal calculi. Non-aneurysmal abdominal aorta . Impression: Cholelithiasis. Negative for dilated bile ducts Normal-appearing liver Possible nonobstructive left renal calyceal calculi Incidental finding bilateral renal cysts
[2018-04-21] MEDS: Xarelto 15mg tab ORAL SCH (10:12)
[2018-04-21] MEDS: Memantine 10mg tab ORAL SCH (10:12)
[2018-04-21] MEDS: Aspirin Baby 81mg ORAL SCH (10:12)
--- NOTE | 2018-04-21 10:15 | NUR ---
PT NOTE: Received MD order for PT evaluation. Attempted to see patient for PT evaluation. Received patient in semi-supine position in bed with eyes closed. Patient able to open eyes on command however does not keep them open for more than several seconds. Patient unable to participate with PT evaluation at this time, Edmar ADAMS notified. Will re-attempt today as schedule permits or follow up tomorrow.
--- NOTE | 2018-04-21 11:51 | Diagnostic Imaging Report ---
Indications: Chest pain Technique: Single day single isotope protocol utilized. Initially, resting images obtained using IV administration 10.7 millicuries 99M technetium Myoview. Subsequently, patient underwent lexiscan stress testing. See cardiology report for details. During Lexiscan infusion, IV administration 31.9 mCi 99 M technetium Myoview. SPECT and planar images obtained. SPECT images gated to 8 phases of the cardiac cycle were also obtained, and reformatted into cine images for evaluation of ejection fraction. Comparison: none Findings: Presence or absence of symptoms during infusion is not described on the cardiology report. Per cardiology report, resting EKG demonstrates normal sinus rhythm with nonspecific ST-T wave abnormalities. Presence or absence of ST changes during infusion is not described on the cardiology report. . Imaging demonstrates normal poststress perfusion, no fixed nor reversible post stress perfusion defects.. Calculated post stress ejection fraction 52%. Note that the gated images are somewhat limited due to the very small left ventricular chamber size Impression: Nonischemic clinical response to pharmacologic stress, per cardiology report Nonischemic electrocardiographic response to pharmacologic stress, per cardiology report No imaging findings to suggest ischemia, at level of stress achieved. Calculated post stress ejection fraction 52%
[2018-04-21 12:00] VITALS: BP 109/61
--- NOTE | 2018-04-21 12:52 | Pulmonology Progress Note ---
Assessment/Plan Problems: (1) ACS (acute coronary syndrome) (2) Hypernatremia (3) Acute encephalopathy (4) Diabetes mellitus Assessment/Plan awaiting stress test results pacemaker was interrogated no new complains doing better, not talking echo reviewed, normal EF CXR reviewed, No acute infiltrate, Na slightly high continue IV fluids calorie count. dvt prophylaxis. d/w daughter, she wants long-term placement Subjective ROS Limited/Unobtainable: No Interval Events: pace maker was interrogated Allergies: Coded Allergies: PENICILLINS (Verified Allergy, Unknown, 04/17/18) Uncoded Allergies: PENICILLIN (Allergy, Unknown, 04/17/18) Objective Last 24 Hour Vital Signs Date Time Temp Pulse Resp B/P (MAP) Pulse Ox O2 Delivery O2 Flow Rate FiO2 04/21/18 12:00 97.0 70 16 109/61 (77) 96 04/21/18 12:00 70 109/61 04/21/18 09:00 Room Air Room Air 04/21/18 08:00 66 04/21/18 08:00 97.3 65 18 120/58 (78) 95 04/21/18 07:51 87 16 Room Air 21 04/21/18 06:00 67 140/59 04/21/18 04:00 96.3 64 16 92/56 (68) 94 04/21/18 04:00 65 04/21/18 00:00 67 04/21/18 00:00 97.0 74 20 103/47 (65) 93 04/21/18 00:00 74 103/47 04/20/18 22:13 73 04/20/18 21:00 Room Air Room Air 04/20/18 20:38 77 16 Room Air 21 04/20/18 20:00 97.0 80 18 107/55 (72) 94 04/20/18 17:53 121 93/56 04/20/18 16:00 111 04/20/18 16:00 97.0 121 20 93/56 (68) 96 04/20/18 15:00 93/47 Intake and Output 04/20/18 04/21/18 19:00 07:00 Intake Total 720 ml 1089.16 ml Balance 720 ml 1089.16 ml Intake Oral 120 ml IV Total 600 ml 539.16 ml Other 550 ml # Voids 4 2 Objective doing better, more talkative General Appearance: cachetic HEENT: normocephalic, atraumatic Respiratory/Chest: chest wall non-tender Breasts: no masses Cardiovascular: normal peripheral pulses Abdomen: normal bowel sounds Genitourinary: normal external genitalia Extremities: no cyanosis Neurologic/Psychiatric: outside machinist helper II-XII grossly normal Lymphatic: no neck adenopathy Laboratory Tests 04/20/18 18:15: PTT Mixing Study [Pending], APTT Patient/Control Mix [Pending], Mix PTT Incubation Time [Pending], Mix PTT Normal/Saline 1:1 Immediate [Pending], Thrombin Time Normal Plasma [Pending] 04/21/18 06:25: White Blood Count 11.5H, Red Blood Count 3.98L, Hemoglobin 13.2, Hematocrit 38.6 , Mean Corpuscular Volume 97, Mean Corpuscular Hemoglobin 33.1H, Mean Corpuscular Hemoglobin Concent 34.1, Red Cell Distribution Width 13.1, Platelet Count 111L, Mean Platelet Volume 6.5, Neutrophils (%) (Auto) 62.0, Lymphocytes ( %) (Auto) 29.5, Monocytes (%) (Auto) 5.0, Eosinophils (%) (Auto) 3.1H, Basophils (%) (Auto) 0.5, Sodium Level 142, Potassium Level 4.5, Chloride Level 108H, Carbon Dioxide Level 29, Anion Gap 6, Blood Urea Nitrogen 15, Creatinine 0.9, Estimat Glomerular Filtration Rate , Glucose Level 91, Calcium Level 8.3L Current Medications Medications (Trade) Dose Ordered Sig/Zan Route PRN Reason Start Time Stop Time Status Last Admin Dose Admin Acetaminophen (Tylenol) 650 mg Q4H PRN ORAL T>100.5 04/17/18 09:15 05/17/18 09:14 04/17/18 11:13 Albuterol/ Ipratropium (Albuterol/ Ipratropium) 3 ml Q4H PRN HHN Shortness of Breath 04/17/18 09:15 04/22/18 09:14 Aspirin (ASA) 81 mg DAILY ORAL 04/18/18 09:00 05/18/18 08:59 04/21/18 10:12 Bupropion HCl (Wellbutrin) 100 mg Q8HR ORAL 04/20/18 14:00 05/20/18 13:59 04/20/18 14:58 Dextrose (Dextrose 50%) 25 ml Q30M PRN IV Hypoglycemia 04/17/18 09:15 05/17/18 09:14 Dextrose (Dextrose 50%) 50 ml Q30M PRN IV Hypoglycemia 04/17/18 09:15 05/17/18 09:14 Dextrose/ Electrolytes 1,000 ml @ 50 mls/hr Q20H IV 04/18/18 15:00 05/17/18 14:59 04/21/18 02:13 Diltiazem HCl (Cardizem) 30 mg EVERY 6 HOURS ORAL 04/20/18 18:00 05/20/18 17:59 04/20/18 17:53 Famotidine (Pepcid) 20 mg BID ORAL 04/17/18 18:00 05/17/18 17:59 04/21/18 10:12 Hydralazine HCl (Apresoline) 25 mg Q4H PRN ORAL sbp > 160mmHg 04/17/18 14:45 05/17/18 14:44 Lorazepam (Ativan 2mg/ml 1ml) 0.5 mg Q4H PRN IV For Anxiety 04/17/18 09:15 04/24/18 09:14 Memantine (Namenda) 10 mg DAILY ORAL 04/17/18 09:00 05/17/18 08:59 04/21/18 10:12 Mirtazapine (Remeron) 7.5 mg BEDTIME ORAL 04/17/18 21:00 05/17/18 20:59 04/19/18 20:17 Morphine Sulfate (Morphine Sulfate) 1 mg Q4H PRN IVP Severe Pain (Pain Scale 7-10) 04/17/18 09:15 04/24/18 09:14 Nitroglycerin (Ntg) 0.4 mg Q5M X 3 DOSES PRN SL Prn Chest Pain 04/17/18 09:15 05/17/18 09:14 Ondansetron HCl (Zofran) 4 mg Q6H PRN IVP Nausea & Vomiting 04/17/18 09:15 05/17/18 09:14 Polyethylene Glycol (Miralax) 17 gm HSPRN PRN ORAL Constipation 04/17/18 21:00 05/17/18 20:59 Regadenoson (Lexiscan) 0.4 mg ONCE PRN IV stress test 04/20/18 17:45 04/22/18 17:44 Rivaroxaban (Xarelto) 15 mg DAILY ORAL 04/17/18 10:00 05/17/18 09:59 04/21/18 10:12 Temazepam (Restoril) 15 mg HSPRN PRN ORAL Insomnia 04/17/18 21:00 04/24/18 20:59 Amirah Veliz MD Apr 21, 2018 12:52
--- NOTE | 2018-04-21 13:26 | NUR ---
RD ASSESSMENT & RECOMMENDATIONS SEE CARE ACTIVITY FOR COMPLETE ASSESSMENT DAILY ESTIMATED NEEDS: Needs based on Underweight w/ wasting, cardiac, advanced [age] 36.5 30-40 kcals/kg 5390-3146 total kcals 1-1.5 g protein/kg 37-55 g total protein 25-30ml/kcal mL/kg 913-1095 total fluid mLs NUTRITION DIAGNOSIS: 1) Increased kcal and protein needs r/t underweight status and wasting as evidenced by pt moderate to severe wasting, 73% of [place] Body Weight, BMI underweight per guidelines. 2) Inadequate oral intake r/t poor po intake as evidenced by 48 hr calorie count, pt shows 0% intake, possible 100 kcal intake over the course of 6 meals. CURRENT DIET: Regular puree PO DIET RECOMMENDATIONS: Liberalized/ Regular diet (texture per DIRECTOR OF ADVERTISING SALES) ENTERAL NUTRITION RECOMMENDATIONS: * Consult RD if part of POC- rec temp feeds to meet est needs * ADDITIONAL RECOMMENDATIONS: 1) ENSURE TID w/ meals 2) F/up w/ DIRECTOR OF ADVERTISING SALES for texture 3) F/up w/ Kcal count-> POOR INTAKE 4) Weekly weight on CALIBRATED bed scale as pt is underweight 5) monitor hydration status w/ current poor intake 48 HOUR CALORIE COUNT RESULTS: 6 MENUS EVALUATED 5/6-> 0% INTAKE 1 MEAL SHOWS EST 100 KCAL INTAKE --- PT'S PO INTAKE IS NOT MEETING EST NEEDS FOR WEIGHT MAINTENANCE, NOR FOR WEIGHT GAIN SHE IS UNDERWEIGHT. AT RISK FOR FURTHER WT LOSS, MUSCLE LOSS, DEHYDRATION, AND POSSIBLE SKIN BREAKDOWN. * REC TO ADD ENSURE ENLIVE TID W/ ALL MEALS, SNACKS IN B/W ALL MEALS IF TOLERATED. * REC TEMP NON ORAL FEEDS IF PART OF POC TO MEET EST NUTRITIONAL NEEDS.
--- NOTE | 2018-04-21 13:50 | NUR ---
PT EVALUATION NOTE Patient seen for initial evaluation, see complete evaluation for details. Patient presents with generalized weakness and impaired mobility. Patient will benefit from skilled inpatient PT intervention to address strength, balance, safety and functional mobility. Recommend discharge to SNF for further rehab once cleared by MD. Addendum: 04/21/18 at 1504 by PAIGE BALL PT Amended: Links added.
--- NOTE | 2018-04-21 13:56 | General Progress Note ---
Assessment/Plan Problem List: (1) UTI (urinary tract infection) ICD Codes: N39.0 - Urinary tract infection, site not specified SNOMED: 13819488 (2) Dehydration ICD Codes: E86.0 - Dehydration SNOMED: 42759411 (3) Syncope ICD Codes: R55 - Syncope and collapse SNOMED: 296019900 Qualifiers: Qualified Codes: R55 - Syncope and collapse Status: stable, progressing Assessment/Plan pt diet abx neuro psyc cardio eval cbc bmp am dc plan snf Subjective Allergies: Coded Allergies: PENICILLINS (Verified Allergy, Unknown, 04/17/18) Uncoded Allergies: PENICILLIN (Allergy, Unknown, 04/17/18) All Systems: reviewed and negative except above Subjective calm in bed sl confused Objective Last 24 Hour Vital Signs Date Time Temp Pulse Resp B/P (MAP) Pulse Ox O2 Delivery O2 Flow Rate FiO2 04/21/18 12:00 97.0 70 16 109/61 (77) 96 04/21/18 12:00 70 109/61 04/21/18 09:00 Room Air Room Air 04/21/18 08:00 66 04/21/18 08:00 97.3 65 18 120/58 (78) 95 04/21/18 07:51 87 16 Room Air 21 04/21/18 06:00 67 140/59 04/21/18 04:00 96.3 64 16 92/56 (68) 94 04/21/18 04:00 65 04/21/18 00:00 67 04/21/18 00:00 97.0 74 20 103/47 (65) 93 04/21/18 00:00 74 103/47 04/20/18 22:13 73 04/20/18 21:00 Room Air Room Air 04/20/18 20:38 77 16 Room Air 21 04/20/18 20:00 97.0 80 18 107/55 (72) 94 04/20/18 17:53 121 93/56 04/20/18 16:00 111 04/20/18 16:00 97.0 121 20 93/56 (68) 96 04/20/18 15:00 93/47 Intake and Output 04/20/18 04/21/18 19:00 07:00 Intake Total 720 ml 1089.16 ml Balance 720 ml 1089.16 ml Intake Oral 120 ml IV Total 600 ml 539.16 ml Other 550 ml # Voids 4 2 Laboratory Tests 04/20/18 18:15: PTT Mixing Study [Pending], APTT Patient/Control Mix [Pending], Mix PTT Incubation Time [Pending], Mix PTT Normal/Saline 1:1 Immediate [Pending], Thrombin Time Normal Plasma [Pending] 04/21/18 06:25: White Blood Count 11.5H, Red Blood Count 3.98L, Hemoglobin 13.2, Hematocrit 38.6 , Mean Corpuscular Volume 97, Mean Corpuscular Hemoglobin 33.1H, Mean Corpuscular Hemoglobin Concent 34.1, Red Cell Distribution Width 13.1, Platelet Count 111L, Mean Platelet Volume 6.5, Neutrophils (%) (Auto) 62.0, Lymphocytes ( %) (Auto) 29.5, Monocytes (%) (Auto) 5.0, Eosinophils (%) (Auto) 3.1H, Basophils (%) (Auto) 0.5, Sodium Level 142, Potassium Level 4.5, Chloride Level 108H, Carbon Dioxide Level 29, Anion Gap 6, Blood Urea Nitrogen 15, Creatinine 0.9, Estimat Glomerular Filtration Rate , Glucose Level 91, Calcium Level 8.3L Height (Feet): 5 Height (Inches): 2.00 Weight (Pounds): 85 General Appearance: lethargic EENT: normal ENT inspection Neck: normal alignment Cardiovascular: normal peripheral pulses, normal rate, regular rhythm Respiratory/Chest: chest wall non-tender, lungs clear, normal breath sounds Abdomen: normal bowel sounds, non tender, soft Extremities: normal inspection Edema: no edema noted Arm (L), no edema noted Arm (R), no edema noted Leg (L), no edema noted Leg (R), no edema noted Pedal (L), no edema noted Pedal (R), no edema noted Generalized Neurologic: sensory deficit Skin: normal pigmentation, warm/dry Brad Viveros DO Apr 21, 2018 13:56
--- NOTE | 2018-04-21 14:01 | Infectious Diseases Prog Note ---
Assessment/Plan Assessment/Plan Abx: NOne Assessment: Syncopal episode, likely due to dehydration (+ RANJEET, hemoconcentration) -myocardial perfusion scan: Nonischemic clinical response to pharmacologic stress, per cardiology report. Nonischemic electrocardiographic response to pharmacologic stress, per cardiology report/ No imaging findings to suggest ischemia, at level of stress achieved. Afebrile MIld leukocytosis; improving; probable reactive- no infectious process at present -u/a neg -CXR: Left chest pacemaker again demonstrated. Lungs and pleural spaces remain clear. The heart size is normal DM2 Dementia -Abd US: Cholelithiasis. Negative for dilated bile ducts. Normal-appearing liver. Possible nonobstructive left renal calyceal calculi. Incidental finding bilateral renal cysts Plan: -COntinue to monitor off abx -f/u cx -Monitor CBC/CMP, temperatures -aspiration precautions Thank you for this consultation. Will continue to follow along with you. Discussed with RN. Subjective Allergies: Coded Allergies: PENICILLINS (Verified Allergy, Unknown, 04/17/18) Uncoded Allergies: PENICILLIN (Allergy, Unknown, 04/17/18) Subjective afebrile no leukocytosis off abx Objective Vital Signs Last 24 Hour Vital Signs Date Time Temp Pulse Resp B/P (MAP) Pulse Ox O2 Delivery O2 Flow Rate FiO2 04/21/18 12:00 97.0 70 16 109/61 (77) 96 04/21/18 12:00 70 109/61 04/21/18 09:00 Room Air Room Air 04/21/18 08:00 66 04/21/18 08:00 97.3 65 18 120/58 (78) 95 04/21/18 07:51 87 16 Room Air 21 04/21/18 06:00 67 140/59 04/21/18 04:00 96.3 64 16 92/56 (68) 94 04/21/18 04:00 65 04/21/18 00:00 67 04/21/18 00:00 97.0 74 20 103/47 (65) 93 04/21/18 00:00 74 103/47 04/20/18 22:13 73 04/20/18 21:00 Room Air Room Air 04/20/18 20:38 77 16 Room Air 21 04/20/18 20:00 97.0 80 18 107/55 (72) 94 04/20/18 17:53 121 93/56 04/20/18 16:00 111 04/20/18 16:00 97.0 121 20 93/56 (68) 96 04/20/18 15:00 93/47 Height (Feet): 5 Height (Inches): 2.00 Weight (Pounds): 85 Objective GENERAL: Calm in bed, oriented x2, in no acute distress. CARDIOVASCULAR: No murmur. LUNGS: Distant and clear. ABDOMEN: Bowel sounds positive. Nontender. Nondistended. EXTREMITIES: No cyanosis or edema. NEUROLOGIC: The patient moves all extremities, slightly weak. Laboratory Tests Test 04/20/18 18:15 04/21/18 06:25 PTT Mixing Study Pending APTT Patient/Control Mix Pending Mix PTT Incubation Time Pending Mix PTT Normal/Saline 1:1 Immediate Pending Thrombin Time Normal Plasma Pending White Blood Count 11.5 K/UL (4.8-10.8) H Red Blood Count 3.98 M/UL (4.20-5.40) L Hemoglobin 13.2 G/DL (12.0-16.0) Hematocrit 38.6 % (37.0-47.0) Mean Corpuscular Volume 97 FL (80-99) Mean Corpuscular Hemoglobin 33.1 PG (27.0-31.0) H Mean Corpuscular Hemoglobin Concent 34.1 G/DL (32.0-36.0) Red Cell Distribution Width 13.1 % (11.6-14.8) Platelet Count 111 K/UL (150-450) L Mean Platelet Volume 6.5 FL (6.5-10.1) Neutrophils (%) (Auto) 62.0 % (45.0-75.0) Lymphocytes (%) (Auto) 29.5 % (20.0-45.0) Monocytes (%) (Auto) 5.0 % (1.0-10.0) Eosinophils (%) (Auto) 3.1 % (0.0-3.0) H Basophils (%) (Auto) 0.5 % (0.0-2.0) Sodium Level 142 MMOL/L (136-145) Potassium Level 4.5 MMOL/L (3.5-5.1) Chloride Level 108 MMOL/L (98-107) H Carbon Dioxide Level 29 MMOL/L (21-32) Anion Gap 6 mmol/L (5-15) Blood Urea Nitrogen 15 mg/dL (7-18) Creatinine 0.9 MG/DL (0.55-1.30) Estimat Glomerular Filtration Rate mL/min (>60) Glucose Level 91 MG/DL (74-106) Calcium Level 8.3 MG/DL (8.5-10.1) L Current Medications Medications (Trade) Dose Ordered Sig/Zan Route PRN Reason Start Time Stop Time Status Last Admin Dose Admin Acetaminophen (Tylenol) 650 mg Q4H PRN ORAL T>100.5 04/17/18 09:15 05/17/18 09:14 04/17/18 11:13 Albuterol/ Ipratropium (Albuterol/ Ipratropium) 3 ml Q4H PRN HHN Shortness of Breath 04/17/18 09:15 04/22/18 09:14 Aspirin (ASA) 81 mg DAILY ORAL 04/18/18 09:00 05/18/18 08:59 04/21/18 10:12 Bupropion HCl (Wellbutrin) 100 mg Q8HR ORAL 04/20/18 14:00 05/20/18 13:59 04/21/18 13:58 Dextrose (Dextrose 50%) 25 ml Q30M PRN IV Hypoglycemia 04/17/18 09:15 05/17/18 09:14 Dextrose (Dextrose 50%) 50 ml Q30M PRN IV Hypoglycemia 04/17/18 09:15 05/17/18 09:14 Dextrose/ Electrolytes 1,000 ml @ 50 mls/hr Q20H IV 04/18/18 15:00 05/17/18 14:59 04/21/18 02:13 Diltiazem HCl (Cardizem) 30 mg EVERY 6 HOURS ORAL 04/20/18 18:00 05/20/18 17:59 04/20/18 17:53 Famotidine (Pepcid) 20 mg BID ORAL 04/17/18 18:00 05/17/18 17:59 04/21/18 10:12 Hydralazine HCl (Apresoline) 25 mg Q4H PRN ORAL sbp > 160mmHg 04/17/18 14:45 05/17/18 14:44 Lorazepam (Ativan 2mg/ml 1ml) 0.5 mg Q4H PRN IV For Anxiety 04/17/18 09:15 04/24/18 09:14 Memantine (Namenda) 10 mg DAILY ORAL 04/17/18 09:00 05/17/18 08:59 04/21/18 10:12 Mirtazapine (Remeron) 7.5 mg BEDTIME ORAL 04/17/18 21:00 05/17/18 20:59 04/19/18 20:17 Morphine Sulfate (Morphine Sulfate) 1 mg Q4H PRN IVP Severe Pain (Pain Scale 7-10) 04/17/18 09:15 04/24/18 09:14 Nitroglycerin (Ntg) 0.4 mg Q5M X 3 DOSES PRN SL Prn Chest Pain 04/17/18 09:15 05/17/18 09:14 Ondansetron HCl (Zofran) 4 mg Q6H PRN IVP Nausea & Vomiting 04/17/18 09:15 05/17/18 09:14 Polyethylene Glycol (Miralax) 17 gm HSPRN PRN ORAL Constipation 04/17/18 21:00 05/17/18 20:59 Regadenoson (Lexiscan) 0.4 mg ONCE PRN IV stress test 04/20/18 17:45 04/22/18 17:44 Rivaroxaban (Xarelto) 15 mg DAILY ORAL 04/17/18 10:00 05/17/18 09:59 04/21/18 10:12 Temazepam (Restoril) 15 mg HSPRN PRN ORAL Insomnia 04/17/18 21:00 04/24/18 20:59 Radha Rothman M.D. Apr 21, 2018 14:01
--- NOTE | 2018-04-21 15:15 | Progress Note ---
DATE: 04/21/2018 SUBJECTIVE: This is an 87-year-old female patient with syncope and dehydration. This caused her to have altered mental status, confusion, decline in cognition below baseline. That is why, her attending has requested daily psychiatric consultation. MENTAL STATUS EXAMINATION: This is an 87-year-old female. Appearance is disheveled. Attitude, irritable and agitated. Affect, guarded and restricted. Intellect poor. Mood depressed and anxious. Motor activity, psychomotor agitation. Attention span is poor. Orientation x2. Speech is low volume and slurred. Thought process, disorganized and illogical. Insight and judgment is poor. DIAGNOSIS: Major depressive disorder, mild, recurrent with psychotic features, rule out dementia with psychosis. PLAN: Treat her with Wellbutrin 300 mg daily, Remeron 7.5 mg at bedtime, Ativan 0.5 mg IV q.4 h. p.r.n. anxiety and agitation, and Namenda 10 mg daily to prevent any further decline in cognition. 20 minutes of cognitive behavioral therapy provided to help her identify automatic negative thoughts and help her convert those negative thoughts to more positive thinking to reduce depression, anxiety, and mood lability. Chart was reviewed. Discussed with staff. Mark Bajwa M.D. DR: DORI JOB#: [id number] CC:
[2018-04-21 16:00] VITALS: BP 103/44
--- NOTE | 2018-04-21 16:27 | Cardiac Electrophysiology PN ---
Assessment/Plan Assessment/Plan 1. Troponin elevation. Levels are flat. Continue aspirin. No CP. EF normal. ECG no ST elevation Stress test done that showed no ischemia 2. Status post [employer] permanent pacemaker implantation. Interrogation showed Nl Fx battery 6 years Echocardiogram showed EF 55%. 3. Syncope while she was the toilet likely vagal. Pacer interrogation showed Nl Fx. Had 49 SVT episodes. Now on Cardizem 4. HTN on Cardizem 30 q 6hr 5. Sinus tachycardia 6. Depression. On Wellbutrin. OK to DC Subjective Subjective Just had nuclear stress test and her pacer was interrogated. No more tachy. Objective Last 24 Hour Vital Signs Date Time Temp Pulse Resp B/P (MAP) Pulse Ox O2 Delivery O2 Flow Rate FiO2 04/21/18 16:00 97.2 72 16 103/44 (63) 95 04/21/18 12:00 97.0 70 16 109/61 (77) 96 04/21/18 12:00 81 04/21/18 12:00 70 109/61 04/21/18 09:00 Room Air Room Air 04/21/18 08:00 66 04/21/18 08:00 97.3 65 18 120/58 (78) 95 04/21/18 07:51 87 16 Room Air 21 04/21/18 06:00 67 140/59 04/21/18 04:00 96.3 64 16 92/56 (68) 94 04/21/18 04:00 65 04/21/18 00:00 67 04/21/18 00:00 97.0 74 20 103/47 (65) 93 04/21/18 00:00 74 103/47 04/20/18 22:13 73 04/20/18 21:00 Room Air Room Air 04/20/18 20:38 77 16 Room Air 21 04/20/18 20:00 97.0 80 18 107/55 (72) 94 04/20/18 17:53 121 93/56 Intake and Output 04/20/18 04/21/18 19:00 07:00 Intake Total 720 ml 1089.16 ml Balance 720 ml 1089.16 ml Intake Oral 120 ml IV Total 600 ml 539.16 ml Other 550 ml # Voids 4 2 Laboratory Tests Test 04/20/18 18:15 04/21/18 06:25 PTT Mixing Study Pending APTT Patient/Control Mix Pending Mix PTT Incubation Time Pending Mix PTT Normal/Saline 1:1 Immediate Pending Thrombin Time Normal Plasma Pending White Blood Count 11.5 K/UL (4.8-10.8) H Red Blood Count 3.98 M/UL (4.20-5.40) L Hemoglobin 13.2 G/DL (12.0-16.0) Hematocrit 38.6 % (37.0-47.0) Mean Corpuscular Volume 97 FL (80-99) Mean Corpuscular Hemoglobin 33.1 PG (27.0-31.0) H Mean Corpuscular Hemoglobin Concent 34.1 G/DL (32.0-36.0) Red Cell Distribution Width 13.1 % (11.6-14.8) Platelet Count 111 K/UL (150-450) L Mean Platelet Volume 6.5 FL (6.5-10.1) Neutrophils (%) (Auto) 62.0 % (45.0-75.0) Lymphocytes (%) (Auto) 29.5 % (20.0-45.0) Monocytes (%) (Auto) 5.0 % (1.0-10.0) Eosinophils (%) (Auto) 3.1 % (0.0-3.0) H Basophils (%) (Auto) 0.5 % (0.0-2.0) Sodium Level 142 MMOL/L (136-145) Potassium Level 4.5 MMOL/L (3.5-5.1) Chloride Level 108 MMOL/L (98-107) H Carbon Dioxide Level 29 MMOL/L (21-32) Anion Gap 6 mmol/L (5-15) Blood Urea Nitrogen 15 mg/dL (7-18) Creatinine 0.9 MG/DL (0.55-1.30) Estimat Glomerular Filtration Rate mL/min (>60) Glucose Level 91 MG/DL (74-106) Calcium Level 8.3 MG/DL (8.5-10.1) L C-Reactive Protein, Quantitative 8.6 mg/dL (0.00-0.90) H Objective HEAD AND NECK: No JVD. LUNGS: Clear. CARDIOVASCULAR: TachyS1 and S2 with no gallop or murmur. ABDOMEN: Soft. EXTREMITIES: No pitting edema. Pacemaker in the left subclavian area. Yunior Rasheed MD Apr 21, 2018 16:27
--- NOTE | 2018-04-21 16:40 | NUR ---
NURSE NOTES: Talked with Dr. Rasheed and he cleared patient from cardio standpoint.
--- NOTE | 2018-04-21 17:19 | General Progress Note ---
Assessment/Plan Assessment/Plan Assessment and Recs: # Thrombocytopenia - potential causes multifactorial, evaluate liver and viral etiologies to begin, also could be related to underlying medications patient has received. --> Hep panel and HIV is negative --> US abd to evaluate for cirrhosis and hsm ordered --> Peripheral smear ordered to evaluate for blasts /schistocytes, is wnl --> abx and other meds have been reviewed --> ok for ppx if plt >50k w/ either heparin or lovenox --> Transfuse if Plt < 20k and fever, or if Plt < 10k without fever # Erythrocytosis likely due to dehydration --> trend as needed, until improves 17.2-->14.5-->14.1 # Coagulopathy with elevated ptt --> check a mixing study to see if ptt corrects --> if corrects, then has a factor deficiency # Syncope r/o cardiac etiology, has a PM --> will follow with cards recs # Acute on chronic encephalopathy --> monitor ams # Dehydration The timing of this note does not necessarily reflect the time of the patient was seen. Greatly appreciate consultation! Subjective Constitutional: Denies: no symptoms, chills, diaphoresis, fever, malaise, weakness, other HEENT: Denies: no symptoms, eye pain, blurred vision, tearing, double vision, ear pain, ear discharge, nose pain, nose congestion, throat pain, throat swelling, mouth pain, mouth swelling, other Cardiovascular: Denies: no symptoms, chest pain, edema, irregular heart rate, lightheadedness, palpitations, syncope, other Gastrointestinal/Abdominal: Denies: no symptoms, abdomen distended, abdominal pain, black stools, tarry stools, blood in stool, constipated, diarrhea, difficulty swallowing, nausea, poor appetite, poor fluid intake, rectal bleeding , vomiting, other Genitourinary: Denies: no symptoms, burning, discharge, frequency, flank pain, hematuria, incontinence, pain, urgency, other Neurologic/Psychiatric: Denies: no symptoms, anxiety, depressed, emotional problems, headache, numbness, paresthesia, pre-existing deficit, seizure, tingling, tremors, weakness, other Hematologic/Lymphatic: Denies: no symptoms, anemia, easy bleeding, easy bruising, other Allergies: Coded Allergies: PENICILLINS (Verified Allergy, Unknown, 04/17/18) Uncoded Allergies: PENICILLIN (Allergy, Unknown, 04/17/18) Subjective 04/20: daughter wants long-term placement, cbc reviewed plts at 110k 04/21: seen by bedside, awake, comfortable, plt 111. Objective Last 24 Hour Vital Signs Date Time Temp Pulse Resp B/P (MAP) Pulse Ox O2 Delivery O2 Flow Rate FiO2 04/21/18 16:00 74 04/21/18 16:00 97.2 72 16 103/44 (63) 95 04/21/18 12:00 97.0 70 16 109/61 (77) 96 04/21/18 12:00 81 04/21/18 12:00 70 109/61 04/21/18 09:00 Room Air Room Air 04/21/18 08:00 66 04/21/18 08:00 97.3 65 18 120/58 (78) 95 04/21/18 07:51 87 16 Room Air 21 04/21/18 06:00 67 140/59 04/21/18 04:00 96.3 64 16 92/56 (68) 94 04/21/18 04:00 65 04/21/18 00:00 67 04/21/18 00:00 97.0 74 20 103/47 (65) 93 04/21/18 00:00 74 103/47 04/20/18 22:13 73 04/20/18 21:00 Room Air Room Air 04/20/18 20:38 77 16 Room Air 21 04/20/18 20:00 97.0 80 18 107/55 (72) 94 04/20/18 17:53 121 93/56 Intake and Output 04/20/18 04/21/18 19:00 07:00 Intake Total 720 ml 1089.16 ml Balance 720 ml 1089.16 ml Intake Oral 120 ml IV Total 600 ml 539.16 ml Other 550 ml # Voids 4 2 Laboratory Tests 04/20/18 18:15: PTT Mixing Study [Pending], APTT Patient/Control Mix [Pending], Mix PTT Incubation Time [Pending], Mix PTT Normal/Saline 1:1 Immediate [Pending], Thrombin Time Normal Plasma [Pending] 04/21/18 06:25: White Blood Count 11.5H, Red Blood Count 3.98L, Hemoglobin 13.2, Hematocrit 38.6 , Mean Corpuscular Volume 97, Mean Corpuscular Hemoglobin 33.1H, Mean Corpuscular Hemoglobin Concent 34.1, Red Cell Distribution Width 13.1, Platelet Count 111L, Mean Platelet Volume 6.5, Neutrophils (%) (Auto) 62.0, Lymphocytes ( %) (Auto) 29.5, Monocytes (%) (Auto) 5.0, Eosinophils (%) (Auto) 3.1H, Basophils (%) (Auto) 0.5, Sodium Level 142, Potassium Level 4.5, Chloride Level 108H, Carbon Dioxide Level 29, Anion Gap 6, Blood Urea Nitrogen 15, Creatinine 0.9, Estimat Glomerular Filtration Rate , Glucose Level 91, Calcium Level 8.3L, C-Reactive Protein, Quantitative 8.6H Height (Feet): 5 Height (Inches): 2.00 Weight (Pounds): 85 Objective Gen: NAD, A+O x2 Head: normocephalic, atraumatic Eyes: bilateral eye normal inspection ENT: hearing grossly normal Neck: full range of motion Respiratory: chest non-tender, lungs clear Cardiovascular: regular rate, rhythm Gastrointestinal: normal bowel sounds, non tender Rectal: deferred Genitourinary: normal inspection Musculoskeletal: back normal, gait/station normal, nt Psychiatric: judgement/insight normal Skin: normal color, no rash, warm/dry, well hydrated Dillon Calhoun MD Apr 21, 2018 17:19
--- NOTE | 2018-04-21 19:09 | NUR ---
HAND-OFF: Report given to BRYAN Minor. Patient is in stable condition. Endorsed plan of care.
--- NOTE | 2018-04-21 19:10 | NUR ---
NURSE NOTES: Received report from BRYAN Hyatt. Patient in bed asleep showing no signs of acute distress. Respiration even and non labored on room air. No SOB. Vital stable. IV line patent and intact. Bed in lowest position. Call light within reach. All needs attended and met. Will continue plan of care.
[2018-04-21 20:00] VITALS: BP 109/61
[2018-04-22] VITALS: BP 105/64
[2018-04-22 04:00] VITALS: BP 107/59
[2018-04-22] MEDS: dilTIAZem HCl 30mg tab ORAL SCH ×4 (06:00→17:29)
[2018-04-22 07:16] LABS: BASOPHILS % (AUTO) 1.1 % (0.0-2.0); EOSINOPHILS % (AUTO) 2.7 % (0.0-3.0); HEMATOCRIT 39.6 % (37.0-47.0); HEMOGLOBIN 13.7 G/DL (12.0-16.0); LYMPHOCYTES % (AUTO) 29.1 % (20.0-45.0); MEAN CORPUSCULAR VOLUME 97 FL (80-99); MONOCYTES % (AUTO) 9.4 % (1.0-10.0); NEUTROPHILS % (AUTO) 57.6 % (45.0-75.0); PLATELET COUNT 115 K/UL (150-450); RED BLOOD COUNT 4.09 M/UL (4.20-5.40); RED CELL DISTRIBUTION WIDTH 13.1 % (11.6-14.8); WHITE BLOOD COUNT 10.2 K/UL (4.8-10.8)
[2018-04-22 07:48] LABS: ALANINE AMINOTRANSFERASE 20 U/L (12-78); ALBUMIN/GLOBULIN RATIO 0.7 (1.0-2.7); ALKALINE PHOSPHATASE 77 U/L (46-116); ANION GAP 7 mmol/L (5-15); ASPARTATE AMINO TRANSFERASE 24 U/L (15-37); BLOOD UREA NITROGEN 14 mg/dL (7-18); CALCIUM 7.9 MG/DL (8.5-10.1); CARBON DIOXIDE 24 MMOL/L (21-32); CHLORIDE 106 MMOL/L (98-107); CREATININE 0.8 MG/DL (0.55-1.30); PHOSPHORUS 2.6 MG/DL (2.5-4.9); SODIUM 137 MMOL/L (136-145)
--- NOTE | 2018-04-22 07:55 | NUR ---
HAND-OFF: Report given to BRYAN Rodriguez.
[2018-04-22 08:00] VITALS: BP 117/60
--- NOTE | 2018-04-22 08:00 | NUR ---
NURSE NOTES: Pt awake/not alert in bed, responds to verbal, breathing easily on room air, denies SOB and denies pain at this time. Vital signs stable with SR @ 74 on monitor. IV access right a/c with D5 1/2 NS + 20 K running at 50 ml/hr. Pt is reluctant to eat breakfast or drink Ensure. Bed left in low position, exit alarm set, side rails up x 2 and call light left near pt's hand.
[2018-04-22] MEDS: Aspirin Baby 81mg ORAL SCH (09:25)
[2018-04-22] MEDS: Xarelto 15mg tab ORAL SCH (09:25)
[2018-04-22] MEDS: Memantine 10mg tab ORAL SCH (09:25)
--- NOTE | 2018-04-22 11:09 | Pulmonology Progress Note ---
Assessment/Plan Problems: (1) ACS (acute coronary syndrome) (2) Hypernatremia (3) Acute encephalopathy (4) Diabetes mellitus Assessment/Plan stress test negative pacemaker was interrogated no new complains doing better, not talking echo reviewed, normal EF CXR reviewed, No acute infiltrate, calorie count. dc IV fluids dvt prophylaxis. d/w daughter, she wants long-term placement and maybe Feeding tube Subjective ROS Limited/Unobtainable: No Allergies: Coded Allergies: PENICILLINS (Verified Allergy, Unknown, 04/17/18) Uncoded Allergies: PENICILLIN (Allergy, Unknown, 04/17/18) Objective Last 24 Hour Vital Signs Date Time Temp Pulse Resp B/P (MAP) Pulse Ox O2 Delivery O2 Flow Rate FiO2 04/22/18 08:05 77 16 Room Air 21 04/22/18 06:00 75 107/59 04/22/18 04:00 75 04/22/18 04:00 98.2 77 18 107/59 (75) 97 04/22/18 00:00 97.5 78 18 105/64 (78) 97 04/22/18 00:00 78 105/64 04/22/18 00:00 72 04/21/18 21:00 Room Air Room Air 04/21/18 20:30 71 16 Room Air 21 04/21/18 20:00 96.6 70 18 109/61 (77) 98 04/21/18 20:00 74 04/21/18 18:00 75 125/65 04/21/18 16:00 74 04/21/18 16:00 97.2 72 16 103/44 (63) 95 04/21/18 12:00 97.0 70 16 109/61 (77) 96 04/21/18 12:00 81 04/21/18 12:00 70 109/61 Intake and Output 04/21/18 04/22/18 19:00 07:00 Intake Total 1131.6 ml Balance 1131.6 ml IV Total 1131.6 ml # Voids 3 2 # Bowel Movements 1 1 Objective d/w daughter at the bed site Laboratory Tests 04/22/18 06:40: White Blood Count 10.2, Red Blood Count 4.09L, Hemoglobin 13.7, Hematocrit 39.6 , Mean Corpuscular Volume 97, Mean Corpuscular Hemoglobin 33.4H, Mean Corpuscular Hemoglobin Concent 34.5, Red Cell Distribution Width 13.1, Platelet Count 115L, Mean Platelet Volume 6.8, Neutrophils (%) (Auto) 57.6, Lymphocytes ( %) (Auto) 29.1, Monocytes (%) (Auto) 9.4, Eosinophils (%) (Auto) 2.7, Basophils (%) (Auto) 1.1, Sodium Level 137, Potassium Level 4.0, Chloride Level 106, Carbon Dioxide Level 24, Anion Gap 7, Blood Urea Nitrogen 14, Creatinine 0.8, Estimat Glomerular Filtration Rate , Glucose Level 80, Uric Acid 3.6, Calcium Level 7.9L, Phosphorus Level 2.6, Magnesium Level 1.5L, Total Bilirubin 1.0, Aspartate Amino Transf (AST/SGOT) 24, Alanine Aminotransferase (ALT/SGPT) 20, Alkaline Phosphatase 77, Troponin I 0.173H, Pro-B-Type Natriuretic Peptide 1367H , Total Protein 4.7L, Albumin 2.0L, Globulin 2.7, Albumin/Globulin Ratio 0.7L Current Medications Medications (Trade) Dose Ordered Sig/Zan Route PRN Reason Start Time Stop Time Status Last Admin Dose Admin Acetaminophen (Tylenol) 650 mg Q4H PRN ORAL T>100.5 04/17/18 09:15 05/17/18 09:14 04/17/18 11:13 Aspirin (ASA) 81 mg DAILY ORAL 04/18/18 09:00 05/18/18 08:59 04/22/18 09:25 Bupropion HCl (Wellbutrin) 100 mg Q8HR ORAL 04/20/18 14:00 05/20/18 13:59 04/21/18 21:13 Dextrose (Dextrose 50%) 25 ml Q30M PRN IV Hypoglycemia 04/17/18 09:15 05/17/18 09:14 Dextrose (Dextrose 50%) 50 ml Q30M PRN IV Hypoglycemia 04/17/18 09:15 05/17/18 09:14 Dextrose/ Electrolytes 1,000 ml @ 50 mls/hr Q20H IV 04/18/18 15:00 05/17/18 14:59 04/21/18 23:22 Diltiazem HCl (Cardizem) 30 mg EVERY 6 HOURS ORAL 04/20/18 18:00 05/20/18 17:59 04/20/18 17:53 Famotidine (Pepcid) 20 mg BID ORAL 04/17/18 18:00 05/17/18 17:59 04/22/18 09:25 Hydralazine HCl (Apresoline) 25 mg Q4H PRN ORAL sbp > 160mmHg 04/17/18 14:45 05/17/18 14:44 Lorazepam (Ativan 2mg/ml 1ml) 0.5 mg Q4H PRN IV For Anxiety 04/17/18 09:15 04/24/18 09:14 Memantine (Namenda) 10 mg DAILY ORAL 04/17/18 09:00 05/17/18 08:59 04/22/18 09:25 Mirtazapine (Remeron) 7.5 mg BEDTIME ORAL 04/17/18 21:00 05/17/18 20:59 04/21/18 21:13 Morphine Sulfate (Morphine Sulfate) 1 mg Q4H PRN IVP Severe Pain (Pain Scale 7-10) 04/17/18 09:15 04/24/18 09:14 Nitroglycerin (Ntg) 0.4 mg Q5M X 3 DOSES PRN SL Prn Chest Pain 04/17/18 09:15 05/17/18 09:14 Ondansetron HCl (Zofran) 4 mg Q6H PRN IVP Nausea & Vomiting 04/17/18 09:15 05/17/18 09:14 Polyethylene Glycol (Miralax) 17 gm HSPRN PRN ORAL Constipation 04/17/18 21:00 05/17/18 20:59 Regadenoson (Lexiscan) 0.4 mg ONCE PRN IV stress test 04/20/18 17:45 04/22/18 17:44 Rivaroxaban (Xarelto) 15 mg DAILY ORAL 04/17/18 10:00 05/17/18 09:59 04/22/18 09:25 Temazepam (Restoril) 15 mg HSPRN PRN ORAL Insomnia 04/17/18 21:00 04/24/18 20:59 Amirah Veliz MD Apr 22, 2018 11:09
[2018-04-22 12:00] VITALS: BP 109/68
--- NOTE | 2018-04-22 13:35 | General Progress Note ---
Assessment/Plan Problem List: (1) UTI (urinary tract infection) ICD Codes: N39.0 - Urinary tract infection, site not specified SNOMED: 02258673 (2) Dehydration ICD Codes: E86.0 - Dehydration SNOMED: 43533871 (3) Syncope ICD Codes: R55 - Syncope and collapse SNOMED: 182987911 Qualifiers: Qualified Codes: R55 - Syncope and collapse Status: unchanged Assessment/Plan pt diet abx neuro psyc cardio eval cbc bmp am dc plan snf Subjective Constitutional: Reports: weakness Allergies: Coded Allergies: PENICILLINS (Verified Allergy, Unknown, 04/17/18) Uncoded Allergies: PENICILLIN (Allergy, Unknown, 04/17/18) All Systems: reviewed and negative except above Subjective calm in bed sl confused Objective Last 24 Hour Vital Signs Date Time Temp Pulse Resp B/P (MAP) Pulse Ox O2 Delivery O2 Flow Rate FiO2 04/22/18 12:33 77 107/59 04/22/18 08:05 77 16 Room Air 21 04/22/18 06:00 75 107/59 04/22/18 04:00 75 04/22/18 04:00 98.2 77 18 107/59 (75) 97 04/22/18 00:00 97.5 78 18 105/64 (78) 97 04/22/18 00:00 78 105/64 04/22/18 00:00 72 04/21/18 21:00 Room Air Room Air 04/21/18 20:30 71 16 Room Air 21 04/21/18 20:00 96.6 70 18 109/61 (77) 98 04/21/18 20:00 74 04/21/18 18:00 75 125/65 04/21/18 16:00 74 04/21/18 16:00 97.2 72 16 103/44 (63) 95 Intake and Output 04/21/18 04/22/18 19:00 07:00 Intake Total 1131.6 ml Balance 1131.6 ml IV Total 1131.6 ml # Voids 3 2 # Bowel Movements 1 1 Laboratory Tests 04/22/18 06:40: White Blood Count 10.2, Red Blood Count 4.09L, Hemoglobin 13.7, Hematocrit 39.6 , Mean Corpuscular Volume 97, Mean Corpuscular Hemoglobin 33.4H, Mean Corpuscular Hemoglobin Concent 34.5, Red Cell Distribution Width 13.1, Platelet Count 115L, Mean Platelet Volume 6.8, Neutrophils (%) (Auto) 57.6, Lymphocytes ( %) (Auto) 29.1, Monocytes (%) (Auto) 9.4, Eosinophils (%) (Auto) 2.7, Basophils (%) (Auto) 1.1, Sodium Level 137, Potassium Level 4.0, Chloride Level 106, Carbon Dioxide Level 24, Anion Gap 7, Blood Urea Nitrogen 14, Creatinine 0.8, Estimat Glomerular Filtration Rate , Glucose Level 80, Uric Acid 3.6, Calcium Level 7.9L, Phosphorus Level 2.6, Magnesium Level 1.5L, Total Bilirubin 1.0, Aspartate Amino Transf (AST/SGOT) 24, Alanine Aminotransferase (ALT/SGPT) 20, Alkaline Phosphatase 77, Troponin I 0.173H, Pro-B-Type Natriuretic Peptide 1367H , Total Protein 4.7L, Albumin 2.0L, Globulin 2.7, Albumin/Globulin Ratio 0.7L Height (Feet): 5 Height (Inches): 2.00 Weight (Pounds): 85 General Appearance: lethargic EENT: normal ENT inspection Neck: normal alignment Cardiovascular: normal peripheral pulses, normal rate, regular rhythm Respiratory/Chest: chest wall non-tender, lungs clear, normal breath sounds Abdomen: normal bowel sounds, non tender, soft Extremities: normal inspection Edema: no edema noted Arm (L), no edema noted Arm (R), no edema noted Leg (L), no edema noted Leg (R), no edema noted Pedal (L), no edema noted Pedal (R), no edema noted Generalized Neurologic: motor weakness Skin: normal pigmentation, warm/dry Brad Viveros DO Apr 22, 2018 13:35
--- NOTE | 2018-04-22 14:08 | Infectious Diseases Prog Note ---
Assessment/Plan Assessment/Plan Abx: NOne Assessment: Syncopal episode, likely due to dehydration (+ RANJEET, hemoconcentration) -myocardial perfusion scan: Nonischemic clinical response to pharmacologic stress, per cardiology report. Nonischemic electrocardiographic response to pharmacologic stress, per cardiology report/ No imaging findings to suggest ischemia, at level of stress achieved. Afebrile MIld leukocytosis; resolved; probable reactive- no infectious process at present -u/a neg -CXR: Left chest pacemaker again demonstrated. Lungs and pleural spaces remain clear. The heart size is normal DM2 Dementia -Abd US: Cholelithiasis. Negative for dilated bile ducts. Normal-appearing liver. Possible nonobstructive left renal calyceal calculi. Incidental finding bilateral renal cysts Plan: -COntinue to monitor off abx -f/u cx -Monitor CBC/CMP, temperatures -aspiration precautions Thank you for this consultation. Will continue to follow along with you. Discussed with RN. Subjective Allergies: Coded Allergies: PENICILLINS (Verified Allergy, Unknown, 04/17/18) Uncoded Allergies: PENICILLIN (Allergy, Unknown, 04/17/18) Subjective afebrile leukocytosis resolved off abx Objective Vital Signs Last 24 Hour Vital Signs Date Time Temp Pulse Resp B/P (MAP) Pulse Ox O2 Delivery O2 Flow Rate FiO2 04/22/18 12:33 77 107/59 04/22/18 08:05 77 16 Room Air 21 04/22/18 06:00 75 107/59 04/22/18 04:00 75 04/22/18 04:00 98.2 77 18 107/59 (75) 97 04/22/18 00:00 97.5 78 18 105/64 (78) 97 04/22/18 00:00 78 105/64 04/22/18 00:00 72 04/21/18 21:00 Room Air Room Air 04/21/18 20:30 71 16 Room Air 21 04/21/18 20:00 96.6 70 18 109/61 (77) 98 04/21/18 20:00 74 04/21/18 18:00 75 125/65 04/21/18 16:00 74 04/21/18 16:00 97.2 72 16 103/44 (63) 95 Height (Feet): 5 Height (Inches): 2.00 Weight (Pounds): 85 Objective GENERAL: Calm in bed, oriented x2, in no acute distress. CARDIOVASCULAR: No murmur. LUNGS: Distant and clear. ABDOMEN: Bowel sounds positive. Nontender. Nondistended. EXTREMITIES: No cyanosis or edema. NEUROLOGIC: The patient moves all extremities, slightly weak. Laboratory Tests Test 04/22/18 06:40 White Blood Count 10.2 K/UL (4.8-10.8) Red Blood Count 4.09 M/UL (4.20-5.40) L Hemoglobin 13.7 G/DL (12.0-16.0) Hematocrit 39.6 % (37.0-47.0) Mean Corpuscular Volume 97 FL (80-99) Mean Corpuscular Hemoglobin 33.4 PG (27.0-31.0) H Mean Corpuscular Hemoglobin Concent 34.5 G/DL (32.0-36.0) Red Cell Distribution Width 13.1 % (11.6-14.8) Platelet Count 115 K/UL (150-450) L Mean Platelet Volume 6.8 FL (6.5-10.1) Neutrophils (%) (Auto) 57.6 % (45.0-75.0) Lymphocytes (%) (Auto) 29.1 % (20.0-45.0) Monocytes (%) (Auto) 9.4 % (1.0-10.0) Eosinophils (%) (Auto) 2.7 % (0.0-3.0) Basophils (%) (Auto) 1.1 % (0.0-2.0) Sodium Level 137 MMOL/L (136-145) Potassium Level 4.0 MMOL/L (3.5-5.1) Chloride Level 106 MMOL/L (98-107) Carbon Dioxide Level 24 MMOL/L (21-32) Anion Gap 7 mmol/L (5-15) Blood Urea Nitrogen 14 mg/dL (7-18) Creatinine 0.8 MG/DL (0.55-1.30) Estimat Glomerular Filtration Rate mL/min (>60) Glucose Level 80 MG/DL (74-106) Uric Acid 3.6 MG/DL (2.6-7.2) Calcium Level 7.9 MG/DL (8.5-10.1) L Phosphorus Level 2.6 MG/DL (2.5-4.9) Magnesium Level 1.5 MG/DL (1.8-2.4) L Total Bilirubin 1.0 MG/DL (0.2-1.0) Aspartate Amino Transf (AST/SGOT) 24 U/L (15-37) Alanine Aminotransferase (ALT/SGPT) 20 U/L (12-78) Alkaline Phosphatase 77 U/L (46-116) Troponin I 0.173 ng/mL (0.000-0.056) Pro-B-Type Natriuretic Peptide 1367 pg/mL (0-125) H Total Protein 4.7 G/DL (6.4-8.2) L Albumin 2.0 G/DL (3.4-5.0) L Globulin 2.7 g/dL Albumin/Globulin Ratio 0.7 (1.0-2.7) L Current Medications Medications (Trade) Dose Ordered Sig/Zan Route PRN Reason Start Time Stop Time Status Last Admin Dose Admin Acetaminophen (Tylenol) 650 mg Q4H PRN ORAL T>100.5 04/17/18 09:15 05/17/18 09:14 04/17/18 11:13 Bupropion HCl (Wellbutrin) 100 mg Q8HR ORAL 04/20/18 14:00 05/20/18 13:59 04/22/18 12:34 Dextrose (Dextrose 50%) 25 ml Q30M PRN IV Hypoglycemia 04/17/18 09:15 05/17/18 09:14 Dextrose (Dextrose 50%) 50 ml Q30M PRN IV Hypoglycemia 04/17/18 09:15 05/17/18 09:14 Diltiazem HCl (Cardizem) 30 mg EVERY 6 HOURS ORAL 04/20/18 18:00 05/20/18 17:59 04/22/18 12:33 Famotidine (Pepcid) 20 mg BID ORAL 04/17/18 18:00 05/17/18 17:59 04/22/18 09:25 Hydralazine HCl (Apresoline) 25 mg Q4H PRN ORAL sbp > 160mmHg 04/17/18 14:45 05/17/18 14:44 Lorazepam (Ativan 2mg/ml 1ml) 0.5 mg Q4H PRN IV For Anxiety 04/17/18 09:15 04/24/18 09:14 Memantine (Namenda) 10 mg DAILY ORAL 04/17/18 09:00 05/17/18 08:59 04/22/18 09:25 Mirtazapine (Remeron) 7.5 mg BEDTIME ORAL 04/17/18 21:00 05/17/18 20:59 04/21/18 21:13 Regadenoson (Lexiscan) 0.4 mg ONCE PRN IV stress test 04/20/18 17:45 04/22/18 17:44 Rivaroxaban (Xarelto) 15 mg DAILY ORAL 04/17/18 10:00 05/17/18 09:59 04/22/18 09:25 Temazepam (Restoril) 15 mg HSPRN PRN ORAL Insomnia 04/17/18 21:00 04/24/18 20:59 Radha Rothman M.D. Apr 22, 2018 14:08
--- NOTE | 2018-04-22 15:31 | Nephrology Progress Note ---
Assessment/Plan Problem List: (1) Dehydration (2) ACS (acute coronary syndrome) Assessment: elevated troponin (3) Hypernatremia Assessment: resolved (4) Pacemaker Assessment Dehydration- Syncope - Acute on chronic encephalopathy elevated troponin high Hgb due to hemoconcentration Plan Hydrate- adjust BP meds adjust mind altering meds Monitor lytes and renal parameters Gastric mucosa support Per orders Subjective ROS Limited/Unobtainable: No Constitutional: Reports: malaise, weakness Objective Objective Last 24 Hour Vital Signs Date Time Temp Pulse Resp B/P (MAP) Pulse Ox O2 Delivery O2 Flow Rate FiO2 04/22/18 12:33 77 107/59 04/22/18 08:05 77 16 Room Air 21 04/22/18 06:00 75 107/59 04/22/18 04:00 75 04/22/18 04:00 98.2 77 18 107/59 (75) 97 04/22/18 00:00 97.5 78 18 105/64 (78) 97 04/22/18 00:00 78 105/64 04/22/18 00:00 72 04/21/18 21:00 Room Air Room Air 04/21/18 20:30 71 16 Room Air 21 04/21/18 20:00 96.6 70 18 109/61 (77) 98 04/21/18 20:00 74 04/21/18 18:00 75 125/65 04/21/18 16:00 74 04/21/18 16:00 97.2 72 16 103/44 (63) 95 Intake and Output 04/21/18 04/22/18 19:00 07:00 Intake Total 1131.6 ml Balance 1131.6 ml IV Total 1131.6 ml # Voids 3 2 # Bowel Movements 1 1 Laboratory Tests 04/22/18 06:40: White Blood Count 10.2, Red Blood Count 4.09L, Hemoglobin 13.7, Hematocrit 39.6 , Mean Corpuscular Volume 97, Mean Corpuscular Hemoglobin 33.4H, Mean Corpuscular Hemoglobin Concent 34.5, Red Cell Distribution Width 13.1, Platelet Count 115L, Mean Platelet Volume 6.8, Neutrophils (%) (Auto) 57.6, Lymphocytes ( %) (Auto) 29.1, Monocytes (%) (Auto) 9.4, Eosinophils (%) (Auto) 2.7, Basophils (%) (Auto) 1.1, Sodium Level 137, Potassium Level 4.0, Chloride Level 106, Carbon Dioxide Level 24, Anion Gap 7, Blood Urea Nitrogen 14, Creatinine 0.8, Estimat Glomerular Filtration Rate , Glucose Level 80, Uric Acid 3.6, Calcium Level 7.9L, Phosphorus Level 2.6, Magnesium Level 1.5L, Total Bilirubin 1.0, Aspartate Amino Transf (AST/SGOT) 24, Alanine Aminotransferase (ALT/SGPT) 20, Alkaline Phosphatase 77, Troponin I 0.173H, Pro-B-Type Natriuretic Peptide 1367H , Total Protein 4.7L, Albumin 2.0L, Globulin 2.7, Albumin/Globulin Ratio 0.7L Height (Feet): 5 Height (Inches): 2.00 Weight (Pounds): 85 General Appearance: no apparent distress Respiratory/Chest: decreased breath sounds Abdomen: soft Sebastian Mullen MD Apr 22, 2018 15:31
[2018-04-22 16:00] VITALS: BP 114/68
--- NOTE | 2018-04-22 16:46 | Progress Note ---
DATE: 04/22/2018 SUBJECTIVE: This is an 87-year-old female patient with syncope and dehydration. The patient continues to have some confusion, some disorganized thought process, decline in cognition below her baseline. That is why, her attending physician has requested daily psychiatric consultation. DIAGNOSIS: Major depressive disorder, mild, recurrent with psychotic features. PLAN: Treat her with Wellbutrin 300 mg daily, Remeron 7.5 mg at bedtime, Ativan 0.5 mg IV q.4 h. p.r.n. anxiety and agitation, and Namenda 10 mg twice a day. Provide her with 20 minutes of reality-based supportive psychotherapy and 20 minutes of cognitive behavioral therapy to help her identify automatic negative thoughts and help her convert those negative thoughts to more positive thoughts to reduce depression, anxiety, and mood lability. Chart reviewed. Discussed with staff. Seen and assessed at bedside. Mark Bajwa M.D. DR: DORI JOB#: [id number] CC:
--- NOTE | 2018-04-22 16:58 | Cardiac Electrophysiology PN ---
Assessment/Plan Assessment/Plan 1. Troponin elevation. Levels are flat. Continue aspirin. No CP. EF normal. ECG no ST elevation Stress test done that showed no ischemia 2. Status post [employer] permanent pacemaker implantation. Interrogation showed Nl Fx battery 6 years Echocardiogram showed EF 55%. 3. Syncope while she was the toilet likely vagal. Pacer interrogation showed Nl Fx. Had 49 SVT episodes. Now on Cardizem 4. HTN on Cardizem 30 q 6hr 5. Sinus tachycardia 6. Depression. On Wellbutrin. 7. Coagulopathy, FY Dr Moody Subjective Subjective No events. Comfortable Objective Last 24 Hour Vital Signs Date Time Temp Pulse Resp B/P (MAP) Pulse Ox O2 Delivery O2 Flow Rate FiO2 04/22/18 12:33 77 107/59 04/22/18 08:05 77 16 Room Air 21 04/22/18 06:00 75 107/59 04/22/18 04:00 75 04/22/18 04:00 98.2 77 18 107/59 (75) 97 04/22/18 00:00 97.5 78 18 105/64 (78) 97 04/22/18 00:00 78 105/64 04/22/18 00:00 72 04/21/18 21:00 Room Air Room Air 04/21/18 20:30 71 16 Room Air 21 04/21/18 20:00 96.6 70 18 109/61 (77) 98 04/21/18 20:00 74 04/21/18 18:00 75 125/65 Intake and Output 04/21/18 04/22/18 19:00 07:00 Intake Total 1131.6 ml Balance 1131.6 ml IV Total 1131.6 ml # Voids 3 2 # Bowel Movements 1 1 Laboratory Tests Test 04/22/18 06:40 White Blood Count 10.2 K/UL (4.8-10.8) Red Blood Count 4.09 M/UL (4.20-5.40) L Hemoglobin 13.7 G/DL (12.0-16.0) Hematocrit 39.6 % (37.0-47.0) Mean Corpuscular Volume 97 FL (80-99) Mean Corpuscular Hemoglobin 33.4 PG (27.0-31.0) H Mean Corpuscular Hemoglobin Concent 34.5 G/DL (32.0-36.0) Red Cell Distribution Width 13.1 % (11.6-14.8) Platelet Count 115 K/UL (150-450) L Mean Platelet Volume 6.8 FL (6.5-10.1) Neutrophils (%) (Auto) 57.6 % (45.0-75.0) Lymphocytes (%) (Auto) 29.1 % (20.0-45.0) Monocytes (%) (Auto) 9.4 % (1.0-10.0) Eosinophils (%) (Auto) 2.7 % (0.0-3.0) Basophils (%) (Auto) 1.1 % (0.0-2.0) Sodium Level 137 MMOL/L (136-145) Potassium Level 4.0 MMOL/L (3.5-5.1) Chloride Level 106 MMOL/L (98-107) Carbon Dioxide Level 24 MMOL/L (21-32) Anion Gap 7 mmol/L (5-15) Blood Urea Nitrogen 14 mg/dL (7-18) Creatinine 0.8 MG/DL (0.55-1.30) Estimat Glomerular Filtration Rate mL/min (>60) Glucose Level 80 MG/DL (74-106) Uric Acid 3.6 MG/DL (2.6-7.2) Calcium Level 7.9 MG/DL (8.5-10.1) L Phosphorus Level 2.6 MG/DL (2.5-4.9) Magnesium Level 1.5 MG/DL (1.8-2.4) L Total Bilirubin 1.0 MG/DL (0.2-1.0) Aspartate Amino Transf (AST/SGOT) 24 U/L (15-37) Alanine Aminotransferase (ALT/SGPT) 20 U/L (12-78) Alkaline Phosphatase 77 U/L (46-116) Troponin I 0.173 ng/mL (0.000-0.056) Pro-B-Type Natriuretic Peptide 1367 pg/mL (0-125) H Total Protein 4.7 G/DL (6.4-8.2) L Albumin 2.0 G/DL (3.4-5.0) L Globulin 2.7 g/dL Albumin/Globulin Ratio 0.7 (1.0-2.7) L Objective HEAD AND NECK: No JVD. LUNGS: Clear. CARDIOVASCULAR: TachyS1 and S2 with no gallop or murmur. ABDOMEN: Soft. EXTREMITIES: No pitting edema. Pacemaker in the left subclavian area. Yunior Rasheed MD Apr 22, 2018 16:57
--- NOTE | 2018-04-22 19:26 | NUR ---
CASE MANAGEMENT: REVIEW SI: SYNCOPE . DEHYDRATION T 97.5 HR 78 RR 18 BP 107/59 SAT 97% ROOM AIR TROPONIN I 0.173 IS: CARDIZEM PO Q6HR XARELTO PO QD MAG SULFATE IVF TELEMETRY UNIT STATUS DCP: PATIENT IS FROM HOME
--- NOTE | 2018-04-22 19:45 | NUR ---
NURSE NOTES: Received pt. and report from BRYAN Rodriguez. Observe pt. resting in bed with both eyes closed. Pt. has a med surg order; awaiting bed assignment. ship boat or barge mate is in placed, IV site is leaking; will insert new IV. Bed is in the lowest position, locked, and bed alarm on. Call light within reach. No acute distress note at this time. Will continue plan of care.
[2018-04-22 20:00] VITALS: BP 116/75
--- NOTE | 2018-04-22 20:33 | General Progress Note ---
Assessment/Plan Assessment/Plan Assessment and Recs: # Thrombocytopenia - potential causes multifactorial, evaluate liver and viral etiologies to begin, also could be related to underlying medications patient has received. --> Hep panel and HIV is negative --> US abd to evaluate for cirrhosis and hsm reviewed --> Peripheral smear ordered to evaluate for blasts /schistocytes, is wnl --> abx and other meds have been reviewed --> ok for ppx if plt >50k w/ either heparin or lovenox --> Transfuse if Plt < 20k and fever, or if Plt < 10k without fever # Erythrocytosis likely due to dehydration --> trend as needed, until improves 17.2-->14.5-->14.1 # Coagulopathy with elevated ptt --> check a mixing study to see if ptt corrects --> if corrects, then has a factor deficiency # Syncope r/o cardiac etiology, has a PM --> will follow with cards recs # Acute on chronic encephalopathy --> monitor ams # Dehydration The timing of this note does not necessarily reflect the time of the patient was seen. Greatly appreciate consultation! Subjective Allergies: Coded Allergies: PENICILLINS (Verified Allergy, Unknown, 04/17/18) Uncoded Allergies: PENICILLIN (Allergy, Unknown, 04/17/18) Subjective 04/20: daughter wants long-term placement, cbc reviewed plts at 110k 04/21: seen by bedside, awake, comfortable, plt 111. 04/22: Pt is awake, comfortable, no events reported, plt 115 Objective Last 24 Hour Vital Signs Date Time Temp Pulse Resp B/P (MAP) Pulse Ox O2 Delivery O2 Flow Rate FiO2 04/22/18 17:29 77 107/59 04/22/18 12:33 77 107/59 04/22/18 08:05 77 16 Room Air 21 04/22/18 06:00 75 107/59 04/22/18 04:00 75 04/22/18 04:00 98.2 77 18 107/59 (75) 97 04/22/18 00:00 97.5 78 18 105/64 (78) 97 04/22/18 00:00 78 105/64 04/22/18 00:00 72 04/21/18 21:00 Room Air Room Air Intake and Output 04/21/18 04/22/18 19:00 07:00 Intake Total 1131.6 ml Balance 1131.6 ml IV Total 1131.6 ml # Voids 3 2 # Bowel Movements 1 1 Laboratory Tests 04/22/18 06:40: White Blood Count 10.2, Red Blood Count 4.09L, Hemoglobin 13.7, Hematocrit 39.6 , Mean Corpuscular Volume 97, Mean Corpuscular Hemoglobin 33.4H, Mean Corpuscular Hemoglobin Concent 34.5, Red Cell Distribution Width 13.1, Platelet Count 115L, Mean Platelet Volume 6.8, Neutrophils (%) (Auto) 57.6, Lymphocytes ( %) (Auto) 29.1, Monocytes (%) (Auto) 9.4, Eosinophils (%) (Auto) 2.7, Basophils (%) (Auto) 1.1, Sodium Level 137, Potassium Level 4.0, Chloride Level 106, Carbon Dioxide Level 24, Anion Gap 7, Blood Urea Nitrogen 14, Creatinine 0.8, Estimat Glomerular Filtration Rate , Glucose Level 80, Uric Acid 3.6, Calcium Level 7.9L, Phosphorus Level 2.6, Magnesium Level 1.5L, Total Bilirubin 1.0, Aspartate Amino Transf (AST/SGOT) 24, Alanine Aminotransferase (ALT/SGPT) 20, Alkaline Phosphatase 77, Troponin I 0.173H, Pro-B-Type Natriuretic Peptide 1367H , Total Protein 4.7L, Albumin 2.0L, Globulin 2.7, Albumin/Globulin Ratio 0.7L Height (Feet): 5 Height (Inches): 2.00 Weight (Pounds): 85 Objective Gen: NAD, A+O x2 Head: normocephalic, atraumatic Eyes: bilateral eye normal inspection ENT: hearing grossly normal Neck: full range of motion Respiratory: chest non-tender, lungs clear Cardiovascular: regular rate, rhythm Gastrointestinal: normal bowel sounds, non tender Rectal: deferred Genitourinary: normal inspection Musculoskeletal: back normal, gait/station normal, nt Psychiatric: judgement/insight normal Skin: normal color, no rash, warm/dry, well hydrated Dillon Calhoun MD Apr 22, 2018 20:33
[2018-04-23] VITALS: BP 137/63
[2018-04-23] MEDS: dilTIAZem HCl 30mg tab ORAL SCH ×6 (00:34→23:51)
[2018-04-23 04:00] VITALS: BP 118/72
--- NOTE | 2018-04-23 07:00 | NUR ---
NURSE NOTES: Addendum: 04/23/18 at 1609 by MELISSA RICKETTS LVN NURSE NOTES: Received report from Thu ADAMS. Patient in bed awake, alert and oriented x1 with flat affect. showing no signs of acute distress. Respiration even and non labored on room air. No SOB. personal belongings noted. Bed in lowest position. Call light within reach. All needs attended and met. Will continue to monitor.
--- NOTE | 2018-04-23 07:15 | NUR ---
TRANSFER TO FLOOR: Patient transferred to [facility] via bed, per Dr. Veliz. Pt. transferred to unit without any incident. Report given to Anushka. Belongings list checked and accounted and medications given to Anushka. Pt. is stable. Orders transferred.
[2018-04-23] MEDS ORDERED: LORazepam Inj 2mg/ml 1ml IV PRN (07:30)
[2018-04-23] MEDS ORDERED: HydrALAZINE 25mg tab ORAL PRN (07:30)
[2018-04-23 07:35] LABS: BASOPHILS % (AUTO) 1.2 % (0.0-2.0); EOSINOPHILS % (AUTO) 2.7 % (0.0-3.0); HEMATOCRIT 39.2 % (37.0-47.0); HEMOGLOBIN 13.4 G/DL (12.0-16.0); LYMPHOCYTES % (AUTO) 39.9 % (20.0-45.0); MEAN CORPUSCULAR VOLUME 97 FL (80-99); MONOCYTES % (AUTO) 7.5 % (1.0-10.0); NEUTROPHILS % (AUTO) 48.7 % (45.0-75.0); PLATELET COUNT 145 K/UL (150-450); RED BLOOD COUNT 4.06 M/UL (4.20-5.40); RED CELL DISTRIBUTION WIDTH 12.9 % (11.6-14.8); WHITE BLOOD COUNT 7.2 K/UL (4.8-10.8)
[2018-04-23 07:50] LABS: ANION GAP 8 mmol/L (5-15); BLOOD UREA NITROGEN 12 mg/dL (7-18); CALCIUM 8.2 MG/DL (8.5-10.1); CARBON DIOXIDE 27 MMOL/L (21-32); CHLORIDE 104 MMOL/L (98-107); CREATININE 0.8 MG/DL (0.55-1.30); POTASSIUM 3.8 MMOL/L (3.5-5.1); SODIUM 139 MMOL/L (136-145)
--- NOTE | 2018-04-23 07:55 | Pulmonology Progress Note ---
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 PLAN OF CARE MS floor cardio follows troponin levels flat continue aspirin Echo with pEF EKG no acute ischemic changes stress test revealed no ischemia pacemaker interrogated - normal function with battery life of 6 years per cardio syncope was likely vagal since it happened when patient was in the toilet patient had episode of SVT and started on Cardizem s/p IV fluids BP e stabilized BP management with Cardizem CXR no acute cardiopulmonary pathology O2 HHN prn DVT prophylaxis Echo with EF 55%, mild LVH, no evidence of WMA, moderate TR , mild AI, RVSP of 44 with mild pulmonaryHTN monitor renal parameters and lytes , correct electrolytes as needed , avoid nephrotoxic GI prophylaxis BUN from 33 down to 12 and creatinine from 1.3 down to 0.8 acute kidney injury resolved with IVF syncope was possibly due to dehydration versus vagal hepatitis panel negative, HIV nonreactive, heme follows for coagulopathy mixing study pending abdominal ultrasound with cholelithiasis, no dilated bile ducts supportive care may need placement case discussed and evaluated by supervising physician Subjective Allergies: Coded Allergies: PENICILLINS (Verified Allergy, Unknown, 04/17/18) Uncoded Allergies: PENICILLIN (Allergy, Unknown, 04/17/18) Subjective BP stable on RA pulse ox stable Objective Last 24 Hour Vital Signs Date Time Temp Pulse Resp B/P (MAP) Pulse Ox O2 Delivery O2 Flow Rate FiO2 04/23/18 05:32 71 122/69 04/23/18 04:00 97.1 64 18 118/72 (87) 94 04/23/18 04:00 64 04/23/18 00:34 72 137/63 04/23/18 00:00 97.0 72 16 137/63 (87) 98 04/23/18 00:00 66 04/22/18 21:00 Room Air Room Air 04/22/18 20:00 127 04/22/18 20:00 79 16 Room Air 21 04/22/18 20:00 97.2 127 17 116/75 (89) 97 04/22/18 17:29 77 107/59 04/22/18 16:00 84 04/22/18 16:00 96.3 83 18 114/68 (83) 96 04/22/18 12:33 77 107/59 04/22/18 12:00 108 04/22/18 12:00 97.0 108 16 109/68 (82) 96 04/22/18 09:00 Room Air Room Air 04/22/18 08:05 77 16 Room Air 21 04/22/18 08:00 77 04/22/18 08:00 98.0 77 18 117/60 (79) 95 Intake and Output 04/22/18 04/23/18 19:00 07:00 Intake Total 200 ml 150 ml Balance 200 ml 150 ml Intake Oral 200 ml 150 ml # Voids 4 2 # Bowel Movements 2 2 General Appearance: no acute distress, other - awake, alert, female HEENT: normocephalic, atraumatic, anicteric, mucous membranes moist Respiratory/Chest: lungs clear, no accessory muscle use Cardiovascular: normal rate, no JVD Abdomen: normal bowel sounds, soft, non tender Extremities: no edema, pedal pulses normal Neurologic/Psychiatric: alert, responsive Musculoskeletal: atrophy - BLE Laboratory Tests 04/23/18 06:50: White Blood Count 7.2, Red Blood Count 4.06L, Hemoglobin 13.4, Hematocrit 39.2, Mean Corpuscular Volume 97, Mean Corpuscular Hemoglobin 32.9H, Mean Corpuscular Hemoglobin Concent 34.1, Red Cell Distribution Width 12.9, Platelet Count 145L, Mean Platelet Volume 6.2L, Neutrophils (%) (Auto) 48.7, Lymphocytes (%) (Auto) 39.9, Monocytes (%) (Auto) 7.5, Eosinophils (%) (Auto) 2.7, Basophils (%) (Auto ) 1.2, Sodium Level 139, Potassium Level 3.8, Chloride Level 104, Carbon Dioxide Level 27, Anion Gap 8, Blood Urea Nitrogen 12, Creatinine 0.8, Estimat Glomerular Filtration Rate , Glucose Level 81, Calcium Level 8.2L Current Medications Medications (Trade) Dose Ordered Sig/Zan Route PRN Reason Start Time Stop Time Status Last Admin Dose Admin Acetaminophen (Tylenol) 650 mg Q4H PRN ORAL T>100.5 04/23/18 07:29 05/17/18 07:28 Bupropion HCl (Wellbutrin) 100 mg Q8HR ORAL 04/23/18 14:00 05/20/18 13:59 Dextrose (Dextrose 50%) 25 ml Q30M PRN IV Hypoglycemia 04/23/18 07:45 05/17/18 09:14 Dextrose (Dextrose 50%) 50 ml Q30M PRN IV Hypoglycemia 04/23/18 07:45 05/17/18 09:14 Diltiazem HCl (Cardizem) 30 mg EVERY 6 HOURS ORAL 04/23/18 12:00 05/20/18 17:59 Famotidine (Pepcid) 20 mg BID ORAL 04/23/18 09:00 05/17/18 17:59 Hydralazine HCl (Apresoline) 25 mg Q4H PRN ORAL sbp > 160mmHg 04/23/18 07:30 05/17/18 07:29 Lorazepam (Ativan 2mg/ml 1ml) 0.5 mg Q4H PRN IV For Anxiety 04/23/18 07:30 04/24/18 07:29 Memantine (Namenda) 10 mg DAILY ORAL 04/23/18 09:00 05/17/18 08:59 Mirtazapine (Remeron) 7.5 mg BEDTIME ORAL 04/23/18 21:00 05/17/18 20:59 Rivaroxaban (Xarelto) 15 mg DAILY ORAL 04/23/18 09:00 05/17/18 09:59 Temazepam (Restoril) 15 mg HSPRN PRN ORAL Insomnia 04/23/18 07:30 04/24/18 07:29 Ariane Zelaya NP Apr 23, 2018 07:55
--- NOTE | 2018-04-23 08:22 | General Progress Note ---
Assessment/Plan Problem List: (1) UTI (urinary tract infection) ICD Codes: N39.0 - Urinary tract infection, site not specified SNOMED: 84791097 (2) Dehydration ICD Codes: E86.0 - Dehydration SNOMED: 79311797 (3) Syncope ICD Codes: R55 - Syncope and collapse SNOMED: 497561040 Qualifiers: Qualified Codes: R55 - Syncope and collapse Status: stable, progressing Assessment/Plan pt diet abx neuro psyc cardio eval cbc bmp am aru eval Subjective Constitutional: Reports: weakness Allergies: Coded Allergies: PENICILLINS (Verified Allergy, Unknown, 04/17/18) Uncoded Allergies: PENICILLIN (Allergy, Unknown, 04/17/18) All Systems: reviewed and negative except above Subjective calm in bed sl confused Objective Last 24 Hour Vital Signs Date Time Temp Pulse Resp B/P (MAP) Pulse Ox O2 Delivery O2 Flow Rate FiO2 04/23/18 05:32 71 122/69 04/23/18 04:00 97.1 64 18 118/72 (87) 94 04/23/18 04:00 64 04/23/18 00:34 72 137/63 04/23/18 00:00 97.0 72 16 137/63 (87) 98 04/23/18 00:00 66 04/22/18 21:00 Room Air Room Air 04/22/18 20:00 127 04/22/18 20:00 79 16 Room Air 21 04/22/18 20:00 97.2 127 17 116/75 (89) 97 04/22/18 17:29 77 107/59 04/22/18 16:00 84 04/22/18 16:00 96.3 83 18 114/68 (83) 96 04/22/18 12:33 77 107/59 04/22/18 12:00 108 04/22/18 12:00 97.0 108 16 109/68 (82) 96 04/22/18 09:00 Room Air Room Air Intake and Output 04/22/18 04/23/18 19:00 07:00 Intake Total 200 ml 150 ml Balance 200 ml 150 ml Intake Oral 200 ml 150 ml # Voids 4 2 # Bowel Movements 2 2 Laboratory Tests 04/23/18 06:50: White Blood Count 7.2, Red Blood Count 4.06L, Hemoglobin 13.4, Hematocrit 39.2, Mean Corpuscular Volume 97, Mean Corpuscular Hemoglobin 32.9H, Mean Corpuscular Hemoglobin Concent 34.1, Red Cell Distribution Width 12.9, Platelet Count 145L, Mean Platelet Volume 6.2L, Neutrophils (%) (Auto) 48.7, Lymphocytes (%) (Auto) 39.9, Monocytes (%) (Auto) 7.5, Eosinophils (%) (Auto) 2.7, Basophils (%) (Auto ) 1.2, Sodium Level 139, Potassium Level 3.8, Chloride Level 104, Carbon Dioxide Level 27, Anion Gap 8, Blood Urea Nitrogen 12, Creatinine 0.8, Estimat Glomerular Filtration Rate , Glucose Level 81, Calcium Level 8.2L Height (Feet): 5 Height (Inches): 2.00 Weight (Pounds): 85 General Appearance: lethargic EENT: normal ENT inspection Neck: normal alignment Cardiovascular: normal peripheral pulses, normal rate, regular rhythm Respiratory/Chest: chest wall non-tender, lungs clear, normal breath sounds Abdomen: normal bowel sounds, non tender, soft Extremities: normal inspection Edema: no edema noted Arm (L), no edema noted Arm (R), no edema noted Leg (L), no edema noted Leg (R), no edema noted Pedal (L), no edema noted Pedal (R), no edema noted Generalized Neurologic: motor weakness Skin: normal pigmentation, warm/dry Brad Viveros DO Apr 23, 2018 08:22
[2018-04-23 09:00] VITALS: BP 119/54
--- NOTE | 2018-04-23 09:18 | Infectious Diseases Prog Note ---
Assessment/Plan Assessment/Plan Abx: NOne Assessment: Syncopal episode, likely due to dehydration (+ RANJEET, hemoconcentration) -myocardial perfusion scan: Nonischemic clinical response to pharmacologic stress, per cardiology report. Nonischemic electrocardiographic response to pharmacologic stress, per cardiology report/ No imaging findings to suggest ischemia, at level of stress achieved. Afebrile MIld leukocytosis; resolved; probable reactive- no infectious process at present -u/a neg -CXR: Left chest pacemaker again demonstrated. Lungs and pleural spaces remain clear. The heart size is normal DM2 Dementia -Abd US: Cholelithiasis. Negative for dilated bile ducts. Normal-appearing liver. Possible nonobstructive left renal calyceal calculi. Incidental finding bilateral renal cysts Plan: -Monitor off abx -f/u cx -Monitor CBC/CMP, temperatures -aspiration precautions Will continue to follow along with you. Subjective Allergies: Coded Allergies: PENICILLINS (Verified Allergy, Unknown, 04/17/18) Uncoded Allergies: PENICILLIN (Allergy, Unknown, 04/17/18) Subjective Afebrile No leukocytosis Objective Vital Signs Last 24 Hour Vital Signs Date Time Temp Pulse Resp B/P (MAP) Pulse Ox O2 Delivery O2 Flow Rate FiO2 04/23/18 05:32 71 122/69 04/23/18 04:00 97.1 64 18 118/72 (87) 94 04/23/18 04:00 64 04/23/18 00:34 72 137/63 04/23/18 00:00 97.0 72 16 137/63 (87) 98 04/23/18 00:00 66 04/22/18 21:00 Room Air Room Air 04/22/18 20:00 127 04/22/18 20:00 79 16 Room Air 21 04/22/18 20:00 97.2 127 17 116/75 (89) 97 04/22/18 17:29 77 107/59 04/22/18 16:00 84 04/22/18 16:00 96.3 83 18 114/68 (83) 96 04/22/18 12:33 77 107/59 04/22/18 12:00 108 04/22/18 12:00 97.0 108 16 109/68 (82) 96 Height (Feet): 5 Height (Inches): 2.00 Weight (Pounds): 85 Objective GENERAL: NAD CARDIOVASCULAR: S1, S2, RRR LUNGS: CTAB, No W ABDOMEN: SoftNontender. Nondistended. Laboratory Tests Test 04/23/18 06:50 White Blood Count 7.2 K/UL (4.8-10.8) Red Blood Count 4.06 M/UL (4.20-5.40) L Hemoglobin 13.4 G/DL (12.0-16.0) Hematocrit 39.2 % (37.0-47.0) Mean Corpuscular Volume 97 FL (80-99) Mean Corpuscular Hemoglobin 32.9 PG (27.0-31.0) H Mean Corpuscular Hemoglobin Concent 34.1 G/DL (32.0-36.0) Red Cell Distribution Width 12.9 % (11.6-14.8) Platelet Count 145 K/UL (150-450) L Mean Platelet Volume 6.2 FL (6.5-10.1) L Neutrophils (%) (Auto) 48.7 % (45.0-75.0) Lymphocytes (%) (Auto) 39.9 % (20.0-45.0) Monocytes (%) (Auto) 7.5 % (1.0-10.0) Eosinophils (%) (Auto) 2.7 % (0.0-3.0) Basophils (%) (Auto) 1.2 % (0.0-2.0) Sodium Level 139 MMOL/L (136-145) Potassium Level 3.8 MMOL/L (3.5-5.1) Chloride Level 104 MMOL/L (98-107) Carbon Dioxide Level 27 MMOL/L (21-32) Anion Gap 8 mmol/L (5-15) Blood Urea Nitrogen 12 mg/dL (7-18) Creatinine 0.8 MG/DL (0.55-1.30) Estimat Glomerular Filtration Rate mL/min (>60) Glucose Level 81 MG/DL (74-106) Calcium Level 8.2 MG/DL (8.5-10.1) L Current Medications Medications (Trade) Dose Ordered Sig/Zan Route PRN Reason Start Time Stop Time Status Last Admin Dose Admin Acetaminophen (Tylenol) 650 mg Q4H PRN ORAL T>100.5 04/23/18 07:29 05/17/18 07:28 Bupropion HCl (Wellbutrin) 100 mg Q8HR ORAL 04/23/18 14:00 05/20/18 13:59 Dextrose (Dextrose 50%) 25 ml Q30M PRN IV Hypoglycemia 04/23/18 07:45 05/17/18 09:14 Dextrose (Dextrose 50%) 50 ml Q30M PRN IV Hypoglycemia 04/23/18 07:45 05/17/18 09:14 Diltiazem HCl (Cardizem) 30 mg EVERY 6 HOURS ORAL 04/23/18 12:00 05/20/18 17:59 Famotidine (Pepcid) 20 mg BID ORAL 04/23/18 09:00 05/17/18 17:59 Hydralazine HCl (Apresoline) 25 mg Q4H PRN ORAL sbp > 160mmHg 04/23/18 07:30 05/17/18 07:29 Lorazepam (Ativan 2mg/ml 1ml) 0.5 mg Q4H PRN IV For Anxiety 04/23/18 07:30 04/24/18 07:29 Memantine (Namenda) 10 mg DAILY ORAL 04/23/18 09:00 05/17/18 08:59 Mirtazapine (Remeron) 7.5 mg BEDTIME ORAL 04/23/18 21:00 05/17/18 20:59 Rivaroxaban (Xarelto) 15 mg DAILY ORAL 04/23/18 09:00 05/17/18 09:59 Temazepam (Restoril) 15 mg HSPRN PRN ORAL Insomnia 04/23/18 07:30 04/24/18 07:29 Min Conway MD Apr 23, 2018 09:18
[2018-04-23] MEDS: Xarelto 15mg tab ORAL SCH (09:32)
[2018-04-23] MEDS: Memantine 10mg tab ORAL SCH (09:33)
[2018-04-23 12:00] VITALS: BP 130/65
--- NOTE | 2018-04-23 12:15 | Nephrology Progress Note ---
Assessment/Plan Problem List: (1) Dehydration (2) ACS (acute coronary syndrome) Assessment: elevated troponin (3) Hypernatremia Assessment: resolved (4) Pacemaker Assessment Dehydration- Syncope - Acute on chronic encephalopathy elevated troponin high Hgb due to hemoconcentration Plan Hydrate- adjust BP meds adjust mind altering meds Monitor lytes and renal parameters Gastric mucosa support Per orders Subjective ROS Limited/Unobtainable: No Constitutional: Reports: malaise Objective Objective Last 24 Hour Vital Signs Date Time Temp Pulse Resp B/P (MAP) Pulse Ox O2 Delivery O2 Flow Rate FiO2 04/23/18 09:00 Room Air Room Air 04/23/18 09:00 97.4 65 18 119/54 (75) 96 04/23/18 05:32 71 122/69 04/23/18 04:00 97.1 64 18 118/72 (87) 94 04/23/18 04:00 64 04/23/18 00:34 72 137/63 04/23/18 00:00 97.0 72 16 137/63 (87) 98 04/23/18 00:00 66 04/22/18 21:00 Room Air Room Air 04/22/18 20:00 127 04/22/18 20:00 79 16 Room Air 21 04/22/18 20:00 97.2 127 17 116/75 (89) 97 04/22/18 17:29 77 107/59 04/22/18 16:00 84 04/22/18 16:00 96.3 83 18 114/68 (83) 96 04/22/18 12:33 77 107/59 Intake and Output 04/22/18 04/23/18 19:00 07:00 Intake Total 200 ml 150 ml Balance 200 ml 150 ml Intake Oral 200 ml 150 ml # Voids 4 2 # Bowel Movements 2 2 Laboratory Tests 04/23/18 06:50: White Blood Count 7.2, Red Blood Count 4.06L, Hemoglobin 13.4, Hematocrit 39.2, Mean Corpuscular Volume 97, Mean Corpuscular Hemoglobin 32.9H, Mean Corpuscular Hemoglobin Concent 34.1, Red Cell Distribution Width 12.9, Platelet Count 145L, Mean Platelet Volume 6.2L, Neutrophils (%) (Auto) 48.7, Lymphocytes (%) (Auto) 39.9, Monocytes (%) (Auto) 7.5, Eosinophils (%) (Auto) 2.7, Basophils (%) (Auto ) 1.2, Sodium Level 139, Potassium Level 3.8, Chloride Level 104, Carbon Dioxide Level 27, Anion Gap 8, Blood Urea Nitrogen 12, Creatinine 0.8, Estimat Glomerular Filtration Rate , Glucose Level 81, Calcium Level 8.2L Height (Feet): 5 Height (Inches): 2.00 Weight (Pounds): 85 General Appearance: no apparent distress Objective no change Sebastian Mullen MD Apr 23, 2018 12:15
[2018-04-23 15:31] LABS: APTT 1:1 NORMAL PLASMA 31.1 sec (22.9-30.2); APTT 1:1NP MIX 60M INCUBATION 35.2 sec (22.9-30.2); APTT 1:1NP MIX CONTROL 34.9 sec (22.9-30.2)
[2018-04-23 16:00] VITALS: BP 120/59
--- NOTE | 2018-04-23 16:12 | Cardiac Electrophysiology PN ---
Assessment/Plan Assessment/Plan 1. Troponin elevation. Levels are flat. Continue aspirin. No CP. EF normal. ECG no ST elevation Stress test done that showed no ischemia 2. Status post [employer] permanent pacemaker implantation. Interrogation showed Nl Fx and battery 6 years Echocardiogram showed EF 55%. 3. Syncope while she was the toilet likely vagal. Pacer interrogation showed Nl Fx. Had 49 SVT episodes. Now on Cardizem 4. HTN on Cardizem 30 q 6hr 5. Sinus tachycardia 6. Depression. On Wellbutrin. 7. Coagulopathy, FY Dr Moody DW RN Subjective Subjective No events. Comfortable on NMB Objective Last 24 Hour Vital Signs Date Time Temp Pulse Resp B/P (MAP) Pulse Ox O2 Delivery O2 Flow Rate FiO2 04/23/18 12:46 62 130/65 04/23/18 12:00 98.3 62 16 130/65 (86) 95 04/23/18 09:00 Room Air Room Air 04/23/18 09:00 97.4 65 18 119/54 (75) 96 04/23/18 05:32 71 122/69 04/23/18 04:00 97.1 64 18 118/72 (87) 94 04/23/18 04:00 64 04/23/18 00:34 72 137/63 04/23/18 00:00 97.0 72 16 137/63 (87) 98 04/23/18 00:00 66 04/22/18 21:00 Room Air Room Air 04/22/18 20:00 127 04/22/18 20:00 79 16 Room Air 21 04/22/18 20:00 97.2 127 17 116/75 (89) 97 04/22/18 17:29 77 107/59 Intake and Output 04/22/18 04/23/18 19:00 07:00 Intake Total 200 ml 150 ml Balance 200 ml 150 ml Intake Oral 200 ml 150 ml # Voids 4 2 # Bowel Movements 2 2 Laboratory Tests Test 04/23/18 06:50 White Blood Count 7.2 K/UL (4.8-10.8) Red Blood Count 4.06 M/UL (4.20-5.40) L Hemoglobin 13.4 G/DL (12.0-16.0) Hematocrit 39.2 % (37.0-47.0) Mean Corpuscular Volume 97 FL (80-99) Mean Corpuscular Hemoglobin 32.9 PG (27.0-31.0) H Mean Corpuscular Hemoglobin Concent 34.1 G/DL (32.0-36.0) Red Cell Distribution Width 12.9 % (11.6-14.8) Platelet Count 145 K/UL (150-450) L Mean Platelet Volume 6.2 FL (6.5-10.1) L Neutrophils (%) (Auto) 48.7 % (45.0-75.0) Lymphocytes (%) (Auto) 39.9 % (20.0-45.0) Monocytes (%) (Auto) 7.5 % (1.0-10.0) Eosinophils (%) (Auto) 2.7 % (0.0-3.0) Basophils (%) (Auto) 1.2 % (0.0-2.0) Sodium Level 139 MMOL/L (136-145) Potassium Level 3.8 MMOL/L (3.5-5.1) Chloride Level 104 MMOL/L (98-107) Carbon Dioxide Level 27 MMOL/L (21-32) Anion Gap 8 mmol/L (5-15) Blood Urea Nitrogen 12 mg/dL (7-18) Creatinine 0.8 MG/DL (0.55-1.30) Estimat Glomerular Filtration Rate mL/min (>60) Glucose Level 81 MG/DL (74-106) Calcium Level 8.2 MG/DL (8.5-10.1) L Objective HEAD AND NECK: No JVD. LUNGS: Clear. CARDIOVASCULAR: Tachy S1 and S2 with no gallop or murmur. ABDOMEN: Soft. EXTREMITIES: No pitting edema. Pacemaker in the left subclavian area. Yunior Rasheed MD Apr 23, 2018 16:12
--- NOTE | 2018-04-23 19:25 | NUR ---
HAND-OFF: Report given to Christine.
--- NOTE | 2018-04-23 19:44 | NUR ---
NURSE NOTES: Received patient in bed. On RA, no SOB, no acute distress, no c/o pain. L hand IV intact, patent. Bed in lowest position, locked, alarms on. Call light in reach. Reminded pt to use call light for any assistance.
[2018-04-23 20:00] VITALS: BP 126/56
--- NOTE | 2018-04-23 23:52 | NUR ---
NURSE NOTES: Pt has been refusing all PM meds. Explained risk and benefit but cont to refuse. Also refused all meals. Vitals stable. Will inform to MD in AM.
[2018-04-24] VITALS: BP 138/67
--- NOTE | 2018-04-24 00:16 | Progress Note ---
DATE: 04/23/2018 SUBJECTIVE: The patient is an 87-year-old female patient with syncope. The patient continues to have syncope and dehydration. The patient continues to have depression and decline in cognition below baseline worsened by the stress of her medical illness. That is why her attending has requested daily psychiatric consultation. MENTAL STATUS EXAMINATION: This is a 87-year-old female. Appearance is disheveled. Attitude, irritable and agitated. Affect, guarded and restricted. Intellect poor. Mood, depressed and anxious. Motor activity, psychomotor agitation. Attention span is poor. Orientation x2. Speech is pressured. Thought process, disorganized and logical. Thought content, no auditory hallucinations or paranoid delusions. Insight and judgment is poor. DIAGNOSIS: Major depression with psychotic features, rule out dementia with psychosis. PLAN: Treat her with Wellbutrin 300 mg a day, Remeron 7.5 mg at bedtime, Ativan 0.5 mg IV q.4 hours p.r.n. anxiety and agitation, and Namenda 10 mg at bedtime daily. Provided with 20 minutes of cognitive behavioral therapy to help her identify automatic negative thoughts and help her convert those negative thoughts to more positive thoughts to reduce depression, anxiety, and suicidality and help her to have a more adaptive behavior pattern. Ativan at bedtime p.r.n. and . Chart reviewed. Discussed with staff. Mark Bajwa M.D. DR: ANNABELLE JOB#: [id number] CC:
[2018-04-24 04:00] VITALS: BP 107/55
[2018-04-24] MEDS: dilTIAZem HCl 30mg tab ORAL SCH ×3 (06:00→18:01)
--- NOTE | 2018-04-24 07:20 | NUR ---
HAND-OFF: Report given to Mariangel ADAMS.
[2018-04-24 07:44] LABS: ANION GAP 5 mmol/L (5-15); BLOOD UREA NITROGEN 11 mg/dL (7-18); CALCIUM 8.5 MG/DL (8.5-10.1); CARBON DIOXIDE 28 MMOL/L (21-32); CHLORIDE 106 MMOL/L (98-107); CREATININE 0.7 MG/DL (0.55-1.30); POTASSIUM 4.1 MMOL/L (3.5-5.1); SODIUM 139 MMOL/L (136-145)
[2018-04-24 08:00] VITALS: BP 126/76
[2018-04-24 08:04] LABS: BASOPHILS % (AUTO) 1.5 % (0.0-2.0); EOSINOPHILS % (AUTO) 2.9 % (0.0-3.0); HEMATOCRIT 40.2 % (37.0-47.0); HEMOGLOBIN 13.7 G/DL (12.0-16.0); LYMPHOCYTES % (AUTO) 43.9 % (20.0-45.0); MEAN CORPUSCULAR VOLUME 97 FL (80-99); MONOCYTES % (AUTO) 6.9 % (1.0-10.0); NEUTROPHILS % (AUTO) 44.9 % (45.0-75.0); PLATELET COUNT 161 K/UL (150-450); RED BLOOD COUNT 4.15 M/UL (4.20-5.40); RED CELL DISTRIBUTION WIDTH 13.1 % (11.6-14.8); WHITE BLOOD COUNT 6.9 K/UL (4.8-10.8)
--- NOTE | 2018-04-24 08:29 | Pulmonology Progress Note ---
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 PLAN OF CARE MS floor cardio follows troponin levels flat continue aspirin Echo with pEF EKG no acute ischemic changes stress test revealed no ischemia pacemaker interrogated - normal function with battery life of 6 years per cardio syncope was likely vagal since it happened when patient was in the toilet patient had episode of SVT and started on Cardizem s/p IV fluids BP e stabilized BP management with Cardizem CXR no acute cardiopulmonary pathology O2 HHN prn DVT prophylaxis Echo with EF 55%, mild LVH, no evidence of WMA, moderate TR , mild AI, RVSP of 44 with mild pulmonaryHTN monitor renal parameters and lytes , correct electrolytes as needed , avoid nephrotoxic GI prophylaxis BUN from 33 down to 12 and creatinine from 1.3 down to 0.8 acute kidney injury resolved with IVF syncope was possibly due to dehydration versus vagal hepatitis panel negative, HIV nonreactive, heme follows for coagulopathy mixing study pending abdominal ultrasound with cholelithiasis, no dilated bile ducts supportive care may need placement case discussed and evaluated by supervising physician Subjective Allergies: Coded Allergies: PENICILLINS (Verified Allergy, Unknown, 04/17/18) Uncoded Allergies: PENICILLIN (Allergy, Unknown, 04/17/18) Subjective BP stable on RA pulse ox stable no signs of resp distress Objective Last 24 Hour Vital Signs Date Time Temp Pulse Resp B/P (MAP) Pulse Ox O2 Delivery O2 Flow Rate FiO2 04/24/18 06:00 62 107/55 04/24/18 04:00 98.0 62 18 107/55 (72) 98 04/24/18 00:00 97.9 69 18 138/67 (90) 96 04/23/18 21:30 63 18 Room Air 21 04/23/18 21:00 Room Air Room Air 04/23/18 20:00 97.5 66 17 126/56 (79) 96 04/23/18 17:20 67 120/59 04/23/18 16:00 97.5 67 19 120/59 (79) 94 04/23/18 12:46 62 130/65 04/23/18 12:00 98.3 62 16 130/65 (86) 95 04/23/18 09:00 Room Air Room Air 04/23/18 09:00 97.4 65 18 119/54 (75) 96 Intake and Output 04/23/18 04/24/18 18:59 06:59 Intake Total 100 ml 30 ml Balance 100 ml 30 ml Intake Oral 30 ml Other 100 ml # Voids 1 Objective General Appearance: no acute distress, other - awake, alert, female HEENT: normocephalic, atraumatic, anicteric, mucous membranes moist Respiratory/Chest: lungs clear, no accessory muscle use Cardiovascular: normal rate, no JVD Abdomen: normal bowel sounds, soft, non tender Extremities: no edema, pedal pulses normal Neurologic/Psychiatric: alert, responsive Musculoskeletal: atrophy - BLE Laboratory Tests 04/24/18 06:15: White Blood Count 6.9, Red Blood Count 4.15L, Hemoglobin 13.7, Hematocrit 40.2, Mean Corpuscular Volume 97, Mean Corpuscular Hemoglobin 33.1H, Mean Corpuscular Hemoglobin Concent 34.2, Red Cell Distribution Width 13.1, Platelet Count 161, Mean Platelet Volume 6.0L, Neutrophils (%) (Auto) 44.9L, Lymphocytes (%) (Auto) 43.9, Monocytes (%) (Auto) 6.9, Eosinophils (%) (Auto) 2.9, Basophils (%) (Auto ) 1.5, Sodium Level 139, Potassium Level 4.1, Chloride Level 106, Carbon Dioxide Level 28, Anion Gap 5, Blood Urea Nitrogen 11, Creatinine 0.7, Estimat Glomerular Filtration Rate , Glucose Level 70L, Calcium Level 8.5 Current Medications Medications (Trade) Dose Ordered Sig/Zan Route PRN Reason Start Time Stop Time Status Last Admin Dose Admin Acetaminophen (Tylenol) 650 mg Q4H PRN ORAL T>100.5 04/23/18 07:29 05/17/18 07:28 Bupropion HCl (Wellbutrin) 100 mg Q8HR ORAL 04/23/18 14:00 05/20/18 13:59 04/23/18 14:36 Dextrose (Dextrose 50%) 25 ml Q30M PRN IV Hypoglycemia 04/23/18 07:45 05/17/18 09:14 Dextrose (Dextrose 50%) 50 ml Q30M PRN IV Hypoglycemia 04/23/18 07:45 05/17/18 09:14 Diltiazem HCl (Cardizem) 30 mg EVERY 6 HOURS ORAL 04/23/18 12:00 05/20/18 17:59 04/23/18 17:20 Famotidine (Pepcid) 20 mg BID ORAL 04/23/18 09:00 05/17/18 17:59 04/23/18 17:20 Hydralazine HCl (Apresoline) 25 mg Q4H PRN ORAL sbp > 160mmHg 04/23/18 07:30 05/17/18 07:29 Memantine (Namenda) 10 mg DAILY ORAL 04/23/18 09:00 05/17/18 08:59 04/23/18 09:33 Mirtazapine (Remeron) 7.5 mg BEDTIME ORAL 04/23/18 21:00 05/17/18 20:59 Rivaroxaban (Xarelto) 15 mg DAILY ORAL 04/23/18 09:00 05/17/18 09:59 04/23/18 09:32 Ariane Zelaya NP Apr 24, 2018 08:29
--- NOTE | 2018-04-24 08:32 | NUR ---
NURSE NOTES: Patient alert to name,respirations unlabored,patient not eating breakfast,patient will take sips of her Ensure,will continue to offer,callm light within reach,bed alarm is on.
--- NOTE | 2018-04-24 08:33 | General Progress Note ---
Assessment/Plan Problem List: (1) UTI (urinary tract infection) ICD Codes: N39.0 - Urinary tract infection, site not specified SNOMED: 99068090 (2) Dehydration ICD Codes: E86.0 - Dehydration SNOMED: 51550921 (3) Syncope ICD Codes: R55 - Syncope and collapse SNOMED: 948310153 Qualifiers: Qualified Codes: R55 - Syncope and collapse Status: stable, progressing Assessment/Plan pt diet abx neuro psyc cardio eval cbc bmp am aru eval Subjective Constitutional: Reports: weakness Allergies: Coded Allergies: PENICILLINS (Verified Allergy, Unknown, 04/17/18) Uncoded Allergies: PENICILLIN (Allergy, Unknown, 04/17/18) All Systems: reviewed and negative except above Subjective calm in bed sleepy Objective Last 24 Hour Vital Signs Date Time Temp Pulse Resp B/P (MAP) Pulse Ox O2 Delivery O2 Flow Rate FiO2 04/24/18 06:00 62 107/55 04/24/18 04:00 98.0 62 18 107/55 (72) 98 04/24/18 00:00 97.9 69 18 138/67 (90) 96 04/23/18 21:30 63 18 Room Air 21 04/23/18 21:00 Room Air Room Air 04/23/18 20:00 97.5 66 17 126/56 (79) 96 04/23/18 17:20 67 120/59 04/23/18 16:00 97.5 67 19 120/59 (79) 94 04/23/18 12:46 62 130/65 04/23/18 12:00 98.3 62 16 130/65 (86) 95 04/23/18 09:00 Room Air Room Air 04/23/18 09:00 97.4 65 18 119/54 (75) 96 Intake and Output 04/23/18 04/24/18 18:59 06:59 Intake Total 100 ml 30 ml Balance 100 ml 30 ml Intake Oral 30 ml Other 100 ml # Voids 1 Laboratory Tests 04/24/18 06:15: White Blood Count 6.9, Red Blood Count 4.15L, Hemoglobin 13.7, Hematocrit 40.2, Mean Corpuscular Volume 97, Mean Corpuscular Hemoglobin 33.1H, Mean Corpuscular Hemoglobin Concent 34.2, Red Cell Distribution Width 13.1, Platelet Count 161, Mean Platelet Volume 6.0L, Neutrophils (%) (Auto) 44.9L, Lymphocytes (%) (Auto) 43.9, Monocytes (%) (Auto) 6.9, Eosinophils (%) (Auto) 2.9, Basophils (%) (Auto ) 1.5, Sodium Level 139, Potassium Level 4.1, Chloride Level 106, Carbon Dioxide Level 28, Anion Gap 5, Blood Urea Nitrogen 11, Creatinine 0.7, Estimat Glomerular Filtration Rate , Glucose Level 70L, Calcium Level 8.5 Height (Feet): 5 Height (Inches): 2.00 Weight (Pounds): 85 General Appearance: lethargic EENT: normal ENT inspection Neck: normal alignment Cardiovascular: normal peripheral pulses, normal rate, regular rhythm Respiratory/Chest: chest wall non-tender, lungs clear, normal breath sounds Abdomen: normal bowel sounds, non tender, soft Extremities: normal inspection Edema: no edema noted Arm (L), no edema noted Arm (R), no edema noted Leg (L), no edema noted Leg (R), no edema noted Pedal (L), no edema noted Pedal (R), no edema noted Generalized Neurologic: motor weakness Skin: normal pigmentation, warm/dry Brad Viveros DO Apr 24, 2018 08:33
[2018-04-24] MEDS: Memantine 10mg tab ORAL SCH (09:47)
[2018-04-24] MEDS: Xarelto 15mg tab ORAL SCH (09:48)
[2018-04-24 12:00] VITALS: BP 146/79
--- NOTE | 2018-04-24 12:32 | NUR ---
NURSE NOTES: Patient daughter Memo called and state to please notify her before discharging her Mother to any facility,daughter is concerned about her Mother Medicare benefits,message left for the rehabilitation case coordinator Tori.
--- NOTE | 2018-04-24 12:47 | NUR ---
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
--- NOTE | 2018-04-24 13:28 | Nephrology Progress Note ---
Assessment/Plan Problem List: (1) Dehydration (2) ACS (acute coronary syndrome) Assessment: elevated troponin (3) Hypernatremia Assessment: resolved (4) Pacemaker Assessment Dehydration- Syncope - Acute on chronic encephalopathy elevated troponin high Hgb due to hemoconcentration Plan Hydrate- adjust BP meds adjust mind altering meds Monitor lytes and renal parameters Gastric mucosa support Per orders Subjective ROS Limited/Unobtainable: No Objective Objective Last 24 Hour Vital Signs Date Time Temp Pulse Resp B/P (MAP) Pulse Ox O2 Delivery O2 Flow Rate FiO2 04/24/18 12:00 97.4 64 19 146/79 (101) 97 04/24/18 12:00 64 146/79 04/24/18 09:00 Room Air Room Air 04/24/18 08:00 97.8 64 21 126/76 (93) 97 04/24/18 06:00 62 107/55 04/24/18 04:00 98.0 62 18 107/55 (72) 98 04/24/18 00:00 97.9 69 18 138/67 (90) 96 04/23/18 21:30 63 18 Room Air 21 04/23/18 21:00 Room Air Room Air 04/23/18 20:00 97.5 66 17 126/56 (79) 96 04/23/18 17:20 67 120/59 04/23/18 16:00 97.5 67 19 120/59 (79) 94 Intake and Output 04/23/18 04/24/18 19:00 07:00 Intake Total 100 ml 30 ml Balance 100 ml 30 ml Intake Oral 30 ml Other 100 ml # Voids 1 Laboratory Tests 04/24/18 06:15: White Blood Count 6.9, Red Blood Count 4.15L, Hemoglobin 13.7, Hematocrit 40.2, Mean Corpuscular Volume 97, Mean Corpuscular Hemoglobin 33.1H, Mean Corpuscular Hemoglobin Concent 34.2, Red Cell Distribution Width 13.1, Platelet Count 161, Mean Platelet Volume 6.0L, Neutrophils (%) (Auto) 44.9L, Lymphocytes (%) (Auto) 43.9, Monocytes (%) (Auto) 6.9, Eosinophils (%) (Auto) 2.9, Basophils (%) (Auto ) 1.5, Sodium Level 139, Potassium Level 4.1, Chloride Level 106, Carbon Dioxide Level 28, Anion Gap 5, Blood Urea Nitrogen 11, Creatinine 0.7, Estimat Glomerular Filtration Rate , Glucose Level 70L, Calcium Level 8.5 Height (Feet): 5 Height (Inches): 2.00 Weight (Pounds): 85 General Appearance: no apparent distress Cardiovascular: normal rate Respiratory/Chest: lungs clear Abdomen: soft Objective no change Sebastian Mullen MD Apr 24, 2018 13:28
[2018-04-24 16:00] VITALS: BP 130/78
--- NOTE | 2018-04-24 16:02 | Progress Note ---
DATE: 04/24/2018 SUBJECTIVE: The patient is an 87-year-old female patient with syncope. She has some confusion, some disorganized thought process, some decline in cognition below baseline. She has feelings of helplessness, hopelessness, low energy. MENTAL STATUS EXAMINATION: This is an 87-year-old female patient. Appearance is disheveled. Attitude irritable and agitated. Affect, guarded and restricted. Intellect poor. Mood depressed and anxious. Motor activity, psychomotor agitation. Attention span is poor. Orientation x2. Speech is low volume and slurred. Thought process, disorganized and illogical. Insight and judgement poor. DIAGNOSIS: Major depressive disorder, mild, recurrent with psychotic features. PLAN: Treat her with Wellbutrin 300 mg daily, Remeron 7.5 mg at bedtime, Ativan 0.5 mg IV q.4 h. p.r.n. anxiety and agitation, and Namenda 10 mg daily. Provided with 20 minutes of cognitive behavioral therapy to help her identify automatic negative thoughts, help her convert those negative thoughts to more positive thoughts to reduce depression, anxiety, and mood lability. Chart was reviewed. Discussed with staff. Seen and assessed at beside. Mark Bajwa M.D. DR: Gabriela JOB#: [id number] CC:
--- NOTE | 2018-04-24 18:07 | NUR ---
NURSE NOTES: Patient more cooperative, patient taking a few spoon ful of her dinne and taking her po schedule medication at this time,assist patient with her dinner,call light within reach,bed alarm is on.
--- NOTE | 2018-04-24 19:30 | NUR ---
HAND-OFF: Report given to LORRIE ADAMS.
[2018-04-24 20:00] VITALS: BP 138/72
--- NOTE | 2018-04-24 20:00 | NUR ---
NURSE NOTES: Received patient in bed. On RA, no SOB, no acute distress noted. In calm mood. Bed in lowest position, locked, alarms on. Call light in reach.
--- NOTE | 2018-04-24 22:00 | NUR ---
NURSE NOTES: patient took all PM meds and took 30cc of ensure.
--- NOTE | 2018-04-24 22:09 | General Progress Note ---
Assessment/Plan Assessment/Plan Assessment and Recs: # Thrombocytopenia - potential causes multifactorial, evaluate liver and viral etiologies to begin, also could be related to underlying medications patient has received. --> Hep panel and HIV is negative --> US abd to evaluate for cirrhosis and hsm reviewed --> Peripheral smear ordered to evaluate for blasts /schistocytes, is wnl --> abx and other meds have been reviewed --> ok for ppx if plt >50k w/ either heparin or lovenox --> Transfuse if Plt < 20k and fever, or if Plt < 10k without fever # Erythrocytosis likely due to dehydration --> trend as needed, until improves 17.2-->14.5-->14.1 # Coagulopathy with elevated ptt --> check a mixing study to see if ptt corrects --> if corrects, then has a factor deficiency # Syncope r/o cardiac etiology, has a PM --> will follow with cards recs # Acute on chronic encephalopathy --> monitor ams # Dehydration The timing of this note does not necessarily reflect the time of the patient was seen. Greatly appreciate consultation! Subjective Allergies: Coded Allergies: PENICILLINS (Verified Allergy, Unknown, 04/17/18) Uncoded Allergies: PENICILLIN (Allergy, Unknown, 04/17/18) Subjective 04/20: daughter wants long-term placement, cbc reviewed plts at 110k 04/21: seen by bedside, awake, comfortable, plt 111. 38: Pt is awake, comfortable, no events reported, plt 115 04/24: awake, comfortable, no events Objective Last 24 Hour Vital Signs Date Time Temp Pulse Resp B/P (MAP) Pulse Ox O2 Delivery O2 Flow Rate FiO2 04/24/18 20:00 97.6 67 18 138/72 (94) 99 04/24/18 18:01 64 137/71 04/24/18 16:00 98.0 64 19 130/78 (95) 98 04/24/18 12:00 97.4 64 19 146/79 (101) 97 04/24/18 12:00 64 146/79 04/24/18 09:00 Room Air Room Air 04/24/18 08:00 97.8 64 21 126/76 (93) 97 04/24/18 06:00 62 107/55 3/10/19 04:00 98.0 62 18 107/55 (72) 98 04/24/18 00:00 97.9 69 18 138/67 (90) 96 Intake and Output 04/23/18 04/24/18 19:00 07:00 Intake Total 100 ml 30 ml Balance 100 ml 30 ml Intake Oral 30 ml Other 100 ml # Voids 1 Laboratory Tests 04/24/18 06:15: White Blood Count 6.9, Red Blood Count 4.15L, Hemoglobin 13.7, Hematocrit 40.2, Mean Corpuscular Volume 97, Mean Corpuscular Hemoglobin 33.1H, Mean Corpuscular Hemoglobin Concent 34.2, Red Cell Distribution Width 13.1, Platelet Count 161, Mean Platelet Volume 6.0L, Neutrophils (%) (Auto) 44.9L, Lymphocytes (%) (Auto) 43.9, Monocytes (%) (Auto) 6.9, Eosinophils (%) (Auto) 2.9, Basophils (%) (Auto ) 1.5, Sodium Level 139, Potassium Level 4.1, Chloride Level 106, Carbon Dioxide Level 28, Anion Gap 5, Blood Urea Nitrogen 11, Creatinine 0.7, Estimat Glomerular Filtration Rate , Glucose Level 70L, Calcium Level 8.5 Height (Feet): 5 Height (Inches): 2.00 Weight (Pounds): 85 Objective Gen: NAD, A+O x2 Head: normocephalic, atraumatic Eyes: bilateral eye normal inspection ENT: hearing grossly normal Neck: full range of motion Respiratory: chest non-tender, lungs clear Cardiovascular: regular rate, rhythm Gastrointestinal: normal bowel sounds, non tender Rectal: deferred Genitourinary: normal inspection Musculoskeletal: back normal, gait/station normal, nt Psychiatric: judgement/insight normal Skin: normal color, no rash, warm/dry, well hydrated Dillon Calhoun MD Apr 24, 2018 22:09
[2018-04-25] VITALS: BP 124/69
[2018-04-25 04:00] VITALS: BP 123/59
[2018-04-25] MEDS: dilTIAZem HCl 30mg tab ORAL SCH ×4 (05:21→18:16)
--- NOTE | 2018-04-25 05:24 | NUR ---
NURSE NOTES: Pt refused to take scheduled meds at 0000 and 0600. Vitals stable.
[2018-04-25 07:16] LABS: BASOPHILS % (AUTO) 1.3 % (0.0-2.0); EOSINOPHILS % (AUTO) 2.7 % (0.0-3.0); HEMATOCRIT 39.9 % (37.0-47.0); HEMOGLOBIN 13.7 G/DL (12.0-16.0); LYMPHOCYTES % (AUTO) 45.7 % (20.0-45.0); MEAN CORPUSCULAR VOLUME 97 FL (80-99); MONOCYTES % (AUTO) 9.3 % (1.0-10.0); PLATELET COUNT 149 K/UL (150-450); RED CELL DISTRIBUTION WIDTH 13.1 % (11.6-14.8); WHITE BLOOD COUNT 8.9 K/UL (4.8-10.8)
[2018-04-25 07:31] LABS: ANION GAP 7 mmol/L (5-15); BLOOD UREA NITROGEN 11 mg/dL (7-18); CARBON DIOXIDE 28 MMOL/L (21-32); CHLORIDE 105 MMOL/L (98-107); CREATININE 0.8 MG/DL (0.55-1.30); POTASSIUM 4.1 MMOL/L (3.5-5.1); SODIUM 140 MMOL/L (136-145)
--- NOTE | 2018-04-25 08:00 | NUR ---
NURSE NOTES: Patient received in stable condition, resting in bed. Breathing unlabored on room air. No s/s of respiratory distress or pain observed.Bed locked in low position. Bed alarm on. Call light within reach, will continue to monitor.
[2018-04-25 08:05] VITALS: BP 129/67
[2018-04-25] MEDS: Xarelto 15mg tab ORAL SCH (08:26)
[2018-04-25] MEDS: Memantine 10mg tab ORAL SCH (08:26)
--- NOTE | 2018-04-25 10:54 | NUR ---
DISCHARGE PLANNING CLINICALS FAXED TO [facility] T: [phone] F: [phone] CALLED AND SPOKE WITH IGNACIO. SHE WILL REVIEW CLINICALS FOR APPROPRIATENESS
--- NOTE | 2018-04-25 11:44 | General Progress Note ---
Assessment/Plan Problem List: (1) UTI (urinary tract infection) ICD Codes: N39.0 - Urinary tract infection, site not specified SNOMED: 21265443 (2) Dehydration ICD Codes: E86.0 - Dehydration SNOMED: 86963997 (3) Syncope ICD Codes: R55 - Syncope and collapse SNOMED: 659561753 Qualifiers: Qualified Codes: R55 - Syncope and collapse Status: stable, progressing Assessment/Plan pt diet abx neuro psyc cardio eval cbc bmp am aru transfer Subjective Constitutional: Reports: weakness Allergies: Coded Allergies: PENICILLINS (Verified Allergy, Unknown, 04/17/18) Uncoded Allergies: PENICILLIN (Allergy, Unknown, 04/17/18) All Systems: reviewed and negative except above Subjective calm in bed sleepy Objective Last 24 Hour Vital Signs Date Time Temp Pulse Resp B/P (MAP) Pulse Ox O2 Delivery O2 Flow Rate FiO2 04/25/18 11:28 58 129/67 04/25/18 09:00 Room Air Room Air 04/25/18 08:05 98.6 58 18 129/67 (87) 97 04/25/18 05:21 62 123/59 04/25/18 04:00 97.0 18 123/59 (80) 95 04/25/18 00:00 97.1 62 18 124/69 (87) 97 04/24/18 21:00 Room Air Room Air 04/24/18 20:00 97.6 67 18 138/72 (94) 99 04/24/18 18:01 64 137/71 04/24/18 16:00 98.0 64 19 130/78 (95) 98 04/24/18 12:00 97.4 64 19 146/79 (101) 97 04/24/18 12:00 64 146/79 Intake and Output 04/24/18 04/25/18 18:59 06:59 Intake Total 460 ml Balance 460 ml Intake Oral 260 ml Other 200 ml # Voids 5 # Bowel Movements 2 Laboratory Tests 04/25/18 05:10: White Blood Count 8.9, Red Blood Count 4.10L, Hemoglobin 13.7, Hematocrit 39.9, Mean Corpuscular Volume 97, Mean Corpuscular Hemoglobin 33.4H, Mean Corpuscular Hemoglobin Concent 34.4, Red Cell Distribution Width 13.1, Platelet Count 149L, Mean Platelet Volume 6.5, Neutrophils (%) (Auto) 41.0L, Lymphocytes (%) (Auto) 45.7H, Monocytes (%) (Auto) 9.3, Eosinophils (%) (Auto) 2.7, Basophils (%) (Auto ) 1.3, Sodium Level 140, Potassium Level 4.1, Chloride Level 105, Carbon Dioxide Level 28, Anion Gap 7, Blood Urea Nitrogen 11, Creatinine 0.8, Estimat Glomerular Filtration Rate , Glucose Level 64L, Calcium Level 9.0 Height (Feet): 5 Height (Inches): 2.00 Weight (Pounds): 85 General Appearance: lethargic EENT: normal ENT inspection Neck: normal alignment Cardiovascular: normal peripheral pulses, normal rate, regular rhythm Respiratory/Chest: chest wall non-tender, lungs clear, normal breath sounds Abdomen: normal bowel sounds, non tender, soft Extremities: normal inspection Edema: no edema noted Arm (L), no edema noted Arm (R), no edema noted Leg (L), no edema noted Leg (R), no edema noted Pedal (L), no edema noted Pedal (R), no edema noted Generalized Neurologic: motor weakness Skin: normal pigmentation, warm/dry Brad Viveros DO Apr 25, 2018 11:44
[2018-04-25 11:51] VITALS: BP 131/71
--- NOTE | 2018-04-25 12:03 | Nephrology Progress Note ---
Assessment/Plan Problem List: (1) Dehydration (2) ACS (acute coronary syndrome) Assessment: elevated troponin (3) Hypernatremia Assessment: resolved (4) Pacemaker Assessment Dehydration- Syncope - Acute on chronic encephalopathy elevated troponin high Hgb due to hemoconcentration Plan Hydrate- adjust BP meds adjust mind altering meds Monitor lytes and renal parameters Gastric mucosa support Per orders Subjective ROS Limited/Unobtainable: No Constitutional: Reports: weakness Objective Objective Last 24 Hour Vital Signs Date Time Temp Pulse Resp B/P (MAP) Pulse Ox O2 Delivery O2 Flow Rate FiO2 04/25/18 11:51 97.6 62 19 131/71 (91) 97 04/25/18 11:28 58 129/67 04/25/18 09:00 Room Air Room Air 04/25/18 08:05 98.6 58 18 129/67 (87) 97 04/25/18 05:21 62 123/59 04/25/18 04:00 97.0 18 123/59 (80) 95 04/25/18 00:00 97.1 62 18 124/69 (87) 97 04/24/18 21:00 Room Air Room Air 04/24/18 20:00 97.6 67 18 138/72 (94) 99 04/24/18 18:01 64 137/71 04/24/18 16:00 98.0 64 19 130/78 (95) 98 Intake and Output 04/24/18 04/25/18 18:59 06:59 Intake Total 460 ml Balance 460 ml Intake Oral 260 ml Other 200 ml # Voids 5 # Bowel Movements 2 Laboratory Tests 04/25/18 05:10: White Blood Count 8.9, Red Blood Count 4.10L, Hemoglobin 13.7, Hematocrit 39.9, Mean Corpuscular Volume 97, Mean Corpuscular Hemoglobin 33.4H, Mean Corpuscular Hemoglobin Concent 34.4, Red Cell Distribution Width 13.1, Platelet Count 149L, Mean Platelet Volume 6.5, Neutrophils (%) (Auto) 41.0L, Lymphocytes (%) (Auto) 45.7H, Monocytes (%) (Auto) 9.3, Eosinophils (%) (Auto) 2.7, Basophils (%) (Auto ) 1.3, Sodium Level 140, Potassium Level 4.1, Chloride Level 105, Carbon Dioxide Level 28, Anion Gap 7, Blood Urea Nitrogen 11, Creatinine 0.8, Estimat Glomerular Filtration Rate , Glucose Level 64L, Calcium Level 9.0 Height (Feet): 5 Height (Inches): 2.00 Weight (Pounds): 85 General Appearance: no apparent distress Objective no change Sebastian Mullen MD Apr 25, 2018 12:03
--- NOTE | 2018-04-25 12:21 | Infectious Diseases Prog Note ---
Assessment/Plan Assessment/Plan Abx: NOne Assessment: Syncopal episode, likely due to dehydration (+ RANJEET, hemoconcentration) -myocardial perfusion scan: Nonischemic clinical response to pharmacologic stress, per cardiology report. Nonischemic electrocardiographic response to pharmacologic stress, per cardiology report/ No imaging findings to suggest ischemia, at level of stress achieved. Afebrile MIld leukocytosis; resolved; probable reactive- no infectious process at present -u/a neg -CXR: Left chest pacemaker again demonstrated. Lungs and pleural spaces remain clear. The heart size is normal DM2 Dementia -Abd US: Cholelithiasis. Negative for dilated bile ducts. Normal-appearing liver. Possible nonobstructive left renal calyceal calculi. Incidental finding bilateral renal cysts Plan: -Monitor off abx -f/u cx -Monitor CBC/CMP, temperatures -aspiration precautions Will continue to follow along with you. Subjective Allergies: Coded Allergies: PENICILLINS (Verified Allergy, Unknown, 04/17/18) Uncoded Allergies: PENICILLIN (Allergy, Unknown, 04/17/18) Subjective afebrile leukocytosis resolved off abx Objective Vital Signs Last 24 Hour Vital Signs Date Time Temp Pulse Resp B/P (MAP) Pulse Ox O2 Delivery O2 Flow Rate FiO2 04/25/18 11:51 97.6 62 19 131/71 (91) 97 04/25/18 11:28 58 129/67 04/25/18 09:00 Room Air Room Air 04/25/18 08:05 98.6 58 18 129/67 (87) 97 04/25/18 05:21 62 123/59 04/25/18 04:00 97.0 18 123/59 (80) 95 04/25/18 00:00 97.1 62 18 124/69 (87) 97 04/24/18 21:00 Room Air Room Air 04/24/18 20:00 97.6 67 18 138/72 (94) 99 04/24/18 18:01 64 137/71 04/24/18 16:00 98.0 64 19 130/78 (95) 98 Height (Feet): 5 Height (Inches): 2.00 Weight (Pounds): 85 Objective GENERAL: Calm in bed, oriented x2, in no acute distress. CARDIOVASCULAR: No murmur. LUNGS: Distant and clear. ABDOMEN: Bowel sounds positive. Nontender. Nondistended. EXTREMITIES: No cyanosis or edema. NEUROLOGIC: The patient moves all extremities, slightly weak. Laboratory Tests Test 04/25/18 05:10 White Blood Count 8.9 K/UL (4.8-10.8) Red Blood Count 4.10 M/UL (4.20-5.40) L Hemoglobin 13.7 G/DL (12.0-16.0) Hematocrit 39.9 % (37.0-47.0) Mean Corpuscular Volume 97 FL (80-99) Mean Corpuscular Hemoglobin 33.4 PG (27.0-31.0) H Mean Corpuscular Hemoglobin Concent 34.4 G/DL (32.0-36.0) Red Cell Distribution Width 13.1 % (11.6-14.8) Platelet Count 149 K/UL (150-450) L Mean Platelet Volume 6.5 FL (6.5-10.1) Neutrophils (%) (Auto) 41.0 % (45.0-75.0) L Lymphocytes (%) (Auto) 45.7 % (20.0-45.0) H Monocytes (%) (Auto) 9.3 % (1.0-10.0) Eosinophils (%) (Auto) 2.7 % (0.0-3.0) Basophils (%) (Auto) 1.3 % (0.0-2.0) Sodium Level 140 MMOL/L (136-145) Potassium Level 4.1 MMOL/L (3.5-5.1) Chloride Level 105 MMOL/L (98-107) Carbon Dioxide Level 28 MMOL/L (21-32) Anion Gap 7 mmol/L (5-15) Blood Urea Nitrogen 11 mg/dL (7-18) Creatinine 0.8 MG/DL (0.55-1.30) Estimat Glomerular Filtration Rate mL/min (>60) Glucose Level 64 MG/DL (74-106) L Calcium Level 9.0 MG/DL (8.5-10.1) Current Medications Medications (Trade) Dose Ordered Sig/Zan Route PRN Reason Start Time Stop Time Status Last Admin Dose Admin Acetaminophen (Tylenol) 650 mg Q4H PRN ORAL T>100.5 04/23/18 07:29 05/17/18 07:28 Bupropion HCl (Wellbutrin) 100 mg Q8HR ORAL 04/23/18 14:00 05/20/18 13:59 04/24/18 20:54 Dextrose (Dextrose 50%) 25 ml Q30M PRN IV Hypoglycemia 04/23/18 07:45 05/17/18 09:14 Dextrose (Dextrose 50%) 50 ml Q30M PRN IV Hypoglycemia 04/23/18 07:45 05/17/18 09:14 Diltiazem HCl (Cardizem) 30 mg EVERY 6 HOURS ORAL 04/23/18 12:00 05/20/18 17:59 04/25/18 11:28 Famotidine (Pepcid) 20 mg BID ORAL 04/23/18 09:00 05/17/18 17:59 04/25/18 08:26 Hydralazine HCl (Apresoline) 25 mg Q4H PRN ORAL sbp > 160mmHg 04/23/18 07:30 05/17/18 07:29 Memantine (Namenda) 10 mg DAILY ORAL 04/23/18 09:00 05/17/18 08:59 04/25/18 08:26 Mirtazapine (Remeron) 7.5 mg BEDTIME ORAL 04/23/18 21:00 05/17/18 20:59 04/24/18 20:54 Rivaroxaban (Xarelto) 15 mg DAILY ORAL 04/23/18 09:00 05/17/18 09:59 04/25/18 08:26 Radha Rothman M.D. Apr 25, 2018 12:21
[2018-04-25 16:00] VITALS: BP 126/74
--- NOTE | 2018-04-25 16:07 | Pulmonology Progress Note ---
Assessment/Plan Problems: (1) ACS (acute coronary syndrome) (2) Hypernatremia (3) Acute encephalopathy (4) Diabetes mellitus Assessment/Plan stress test negative pacemaker was interrogated no new complains doing better, not talking echo reviewed, normal EF CXR reviewed, No acute infiltrate, calorie count. dc IV fluids dvt prophylaxis. d/w daughter, she wants long-term placement and maybe Feeding tube Subjective ROS Limited/Unobtainable: No Constitutional: Reports: no symptoms HEENT: Repors: no symptoms Respiratory: Reports: no symptoms Allergies: Coded Allergies: PENICILLINS (Verified Allergy, Unknown, 04/17/18) Uncoded Allergies: PENICILLIN (Allergy, Unknown, 04/17/18) Objective Last 24 Hour Vital Signs Date Time Temp Pulse Resp B/P (MAP) Pulse Ox O2 Delivery O2 Flow Rate FiO2 04/25/18 11:51 97.6 62 19 131/71 (91) 97 04/25/18 11:28 58 129/67 04/25/18 09:00 Room Air Room Air 04/25/18 08:05 98.6 58 18 129/67 (87) 97 04/25/18 05:21 62 123/59 04/25/18 04:00 97.0 18 123/59 (80) 95 04/25/18 00:00 97.1 62 18 124/69 (87) 97 04/24/18 21:00 Room Air Room Air 04/24/18 20:00 97.6 67 18 138/72 (94) 99 04/24/18 18:01 64 137/71 Intake and Output 04/24/18 04/25/18 19:00 07:00 Intake Total 460 ml Balance 460 ml Intake Oral 260 ml Other 200 ml # Voids 5 # Bowel Movements 2 Objective d/w daughter at the bed site General Appearance: WD/WN HEENT: normocephalic, atraumatic Respiratory/Chest: chest wall non-tender, lungs clear Cardiovascular: normal peripheral pulses, normal rate Abdomen: normal bowel sounds, soft, non tender Extremities: no cyanosis Skin: no ulcers Laboratory Tests 04/25/18 05:10: White Blood Count 8.9, Red Blood Count 4.10L, Hemoglobin 13.7, Hematocrit 39.9, Mean Corpuscular Volume 97, Mean Corpuscular Hemoglobin 33.4H, Mean Corpuscular Hemoglobin Concent 34.4, Red Cell Distribution Width 13.1, Platelet Count 149L, Mean Platelet Volume 6.5, Neutrophils (%) (Auto) 41.0L, Lymphocytes (%) (Auto) 45.7H, Monocytes (%) (Auto) 9.3, Eosinophils (%) (Auto) 2.7, Basophils (%) (Auto ) 1.3, Sodium Level 140, Potassium Level 4.1, Chloride Level 105, Carbon Dioxide Level 28, Anion Gap 7, Blood Urea Nitrogen 11, Creatinine 0.8, Estimat Glomerular Filtration Rate , Glucose Level 64L, Calcium Level 9.0 Current Medications Medications (Trade) Dose Ordered Sig/Zan Route PRN Reason Start Time Stop Time Status Last Admin Dose Admin Acetaminophen (Tylenol) 650 mg Q4H PRN ORAL T>100.5 04/23/18 07:29 05/17/18 07:28 Bupropion HCl (Wellbutrin) 100 mg Q8HR ORAL 04/23/18 14:00 05/20/18 13:59 04/25/18 12:53 Dextrose (Dextrose 50%) 25 ml Q30M PRN IV Hypoglycemia 04/23/18 07:45 05/17/18 09:14 Dextrose (Dextrose 50%) 50 ml Q30M PRN IV Hypoglycemia 04/23/18 07:45 05/17/18 09:14 Diltiazem HCl (Cardizem) 30 mg EVERY 6 HOURS ORAL 04/23/18 12:00 05/20/18 17:59 04/25/18 11:28 Famotidine (Pepcid) 20 mg BID ORAL 04/23/18 09:00 05/17/18 17:59 04/25/18 08:26 Hydralazine HCl (Apresoline) 25 mg Q4H PRN ORAL sbp > 160mmHg 04/23/18 07:30 05/17/18 07:29 Memantine (Namenda) 10 mg DAILY ORAL 04/23/18 09:00 05/17/18 08:59 04/25/18 08:26 Mirtazapine (Remeron) 7.5 mg BEDTIME ORAL 04/23/18 21:00 05/17/18 20:59 04/24/18 20:54 Rivaroxaban (Xarelto) 15 mg DAILY ORAL 04/23/18 09:00 05/17/18 09:59 04/25/18 08:26 Amirah Veliz MD Apr 25, 2018 16:07
--- NOTE | 2018-04-25 16:19 | NUR ---
DISCHARGE PLANNED SET UP AND LAY OUT INSPECTOR NOTIFIED DAUGHTER THAT PATIENT IS ACCEPTED AT [facility] ROOM 424 T: [phone] FOR NURSE TO NURSE REPORT [facility] HAS BEEN ARRANGED FOR 1900 SPLICING TECHNICIAN(PER [facility]'S REQUEST) PATIENT'S DAUGHTER IS IN AGREEMENT WITH DISCHARGE PLAN Addendum: 04/25/18 at 1623 by CHRISTINA MARSH LVN LVN ATTEMPTED TO LEAVE DAUGHTER A MESSAGE WITH ROOM NUMBER BUT HER VOICEMAIL BOX IS NOW FULL
--- NOTE | 2018-04-25 17:16 | Progress Note ---
DATE: 04/25/2018 SUBJECTIVE: This is an 87-year-old female patient. She has syncope and dehydration. She is confused, disorganized, and mood labile. She has no logical plan for her own self-care. That is why her attending has requested daily psychiatric consultation. She has altered mental status worsened below baseline. MENTAL STATUS EXAMINATION: This is an 87-year-old female patient. Appearance is disheveled. Attitude, irritable and agitated. Affect, guarded and restricted. Intellect poor. Mood depressed and anxious. Motor activity, psychomotor agitation. Attention span is poor. Orientation x2. Speech is pressured. Thought process, disorganized and illogical. Insight and judgment is poor. DIAGNOSIS: Major depressive disorder, mild, recurrent with psychotic features, rule out dementia with psychosis. PLAN: Wellbutrin 300 mg daily, Remeron 7.5 mg at bedtime, Ativan 0.5 mg IV q.4 hours p.r.n. anxiety and agitation, Namenda 10 mg daily. Provide her with 20 minutes of cognitive behavioral therapy to help her identify automatic negative thoughts help her convert those negative thoughts to more positive thoughts to reduce depression, anxiety, and suicidality. Chart reviewed. Discussed with staff. Seen and assessed at bedside. Mark Bajwa M.D. DR: DORI JOB#: [id number] CC:
--- NOTE | 2018-04-25 18:23 | Cardiac Electrophysiology PN ---
Assessment/Plan Assessment/Plan 1. Troponin elevation. Levels are flat. Continue aspirin. No CP. EF normal. ECG no ST elevation Stress test showed no ischemia 2. Status post [employer] permanent pacemaker implantation. Interrogation showed Nl Fx and battery 6 years Echocardiogram showed EF 55%. 3. Syncope while she was the toilet likely vagal. Pacer interrogation showed Nl Fx. Had 49 SVT episodes. Now on Cardizem 4. HTN on Cardizem 30 q 6hr 5. Sinus tachycardia 6. Depression. On Wellbutrin. 7. Coagulopathy, FY Dr Moody DW medicaid billing clerk to [facility] [place] [facility] Subjective Subjective No events. Comfortable on NMB. Going to [facility] today Objective Last 24 Hour Vital Signs Date Time Temp Pulse Resp B/P (MAP) Pulse Ox O2 Delivery O2 Flow Rate FiO2 04/25/18 18:16 62 131/71 04/25/18 11:51 97.6 62 19 131/71 (91) 97 04/25/18 11:28 58 129/67 04/25/18 09:00 Room Air Room Air 04/25/18 08:05 98.6 58 18 129/67 (87) 97 04/25/18 05:21 62 123/59 04/25/18 04:00 97.0 18 123/59 (80) 95 04/25/18 00:00 97.1 62 18 124/69 (87) 97 04/24/18 21:00 Room Air Room Air 04/24/18 20:00 97.6 67 18 138/72 (94) 99 Intake and Output 04/24/18 04/25/18 19:00 07:00 Intake Total 460 ml Balance 460 ml Intake Oral 260 ml Other 200 ml # Voids 5 # Bowel Movements 2 Laboratory Tests Test 04/25/18 05:10 White Blood Count 8.9 K/UL (4.8-10.8) Red Blood Count 4.10 M/UL (4.20-5.40) L Hemoglobin 13.7 G/DL (12.0-16.0) Hematocrit 39.9 % (37.0-47.0) Mean Corpuscular Volume 97 FL (80-99) Mean Corpuscular Hemoglobin 33.4 PG (27.0-31.0) H Mean Corpuscular Hemoglobin Concent 34.4 G/DL (32.0-36.0) Red Cell Distribution Width 13.1 % (11.6-14.8) Platelet Count 149 K/UL (150-450) L Mean Platelet Volume 6.5 FL (6.5-10.1) Neutrophils (%) (Auto) 41.0 % (45.0-75.0) L Lymphocytes (%) (Auto) 45.7 % (20.0-45.0) H Monocytes (%) (Auto) 9.3 % (1.0-10.0) Eosinophils (%) (Auto) 2.7 % (0.0-3.0) Basophils (%) (Auto) 1.3 % (0.0-2.0) Sodium Level 140 MMOL/L (136-145) Potassium Level 4.1 MMOL/L (3.5-5.1) Chloride Level 105 MMOL/L (98-107) Carbon Dioxide Level 28 MMOL/L (21-32) Anion Gap 7 mmol/L (5-15) Blood Urea Nitrogen 11 mg/dL (7-18) Creatinine 0.8 MG/DL (0.55-1.30) Estimat Glomerular Filtration Rate mL/min (>60) Glucose Level 64 MG/DL (74-106) L Calcium Level 9.0 MG/DL (8.5-10.1) Objective HEAD AND NECK: No JVD. LUNGS: Clear. CARDIOVASCULAR: Tachy S1 and S2 with no gallop or murmur. ABDOMEN: Soft. EXTREMITIES: No pitting edema. Pacemaker in the left subclavian area. Yunior Rasheed MD Apr 25, 2018 18:23
--- NOTE | 2018-04-25 18:59 | General Progress Note ---
Assessment/Plan Assessment/Plan # Thrombocytopenia - potential causes multifactorial, evaluate liver and viral etiologies to begin, also could be related to underlying medications patient has received. --> Hep panel and HIV is negative --> US abd to evaluate for cirrhosis and hsm reviewed --> Peripheral smear ordered to evaluate for blasts /schistocytes, is wnl --> abx and other meds have been reviewed --> ok for ppx if plt >50k w/ either heparin or lovenox --> Transfuse if Plt < 20k and fever, or if Plt < 10k without fever # Erythrocytosis likely due to dehydration --> trend as needed, until improves 17.2-->14.5-->14.1 # Coagulopathy with elevated ptt --> check a mixing study to see if ptt corrects --> it does not correct, therefore at [facility], will send off a lupus anticoagulant # Syncope r/o cardiac etiology, has a PM --> will follow with cards recs # Acute on chronic encephalopathy --> monitor ams # Dehydration The timing of this note does not necessarily reflect the time of the patient was seen. Greatly appreciate consultation! Subjective Gastrointestinal/Abdominal: Denies: no symptoms, abdomen distended, abdominal pain, black stools, tarry stools, blood in stool, constipated, diarrhea, difficulty swallowing, nausea, poor appetite, poor fluid intake, rectal bleeding , vomiting, other Genitourinary: Denies: no symptoms, burning, discharge, frequency, flank pain, hematuria, incontinence, pain, urgency, other Neurologic/Psychiatric: Denies: no symptoms, anxiety, depressed, emotional problems, headache, numbness, paresthesia, pre-existing deficit, seizure, tingling, tremors, weakness, other Endocrine: Denies: no symptoms, excessive sweating, flushing, intolerance to cold, intolerance to heat, increased hunger, increased thirst, increased urine, unexplained weight gain, unexplained weight loss, other Hematologic/Lymphatic: Denies: no symptoms, anemia, easy bleeding, easy bruising, other Allergies: Coded Allergies: PENICILLINS (Verified Allergy, Unknown, 04/17/18) Uncoded Allergies: PENICILLIN (Allergy, Unknown, 04/17/18) Subjective 04/20: daughter wants long-term placement, cbc reviewed plts at 110k 04/21: seen by bedside, awake, comfortable, plt 111. 3/8: Pt is awake, comfortable, no events reported, plt 115 04/24: awake, comfortable, no events 04/25: potential transfer out of [facility] to [facility] Objective Last 24 Hour Vital Signs Date Time Temp Pulse Resp B/P (MAP) Pulse Ox O2 Delivery O2 Flow Rate FiO2 04/25/18 18:16 62 131/71 04/25/18 16:00 97.9 64 18 126/74 (91) 96 04/25/18 11:51 97.6 62 19 131/71 (91) 97 04/25/18 11:28 58 129/67 04/25/18 09:00 Room Air Room Air 04/25/18 08:05 98.6 58 18 129/67 (87) 97 04/25/18 05:21 62 123/59 04/25/18 04:00 97.0 18 123/59 (80) 95 04/25/18 00:00 97.1 62 18 124/69 (87) 97 04/24/18 21:00 Room Air Room Air 04/24/18 20:00 97.6 67 18 138/72 (94) 99 Intake and Output 04/24/18 04/25/18 19:00 07:00 Intake Total 460 ml Balance 460 ml Intake Oral 260 ml Other 200 ml # Voids 5 # Bowel Movements 2 Laboratory Tests 04/25/18 05:10: White Blood Count 8.9, Red Blood Count 4.10L, Hemoglobin 13.7, Hematocrit 39.9, Mean Corpuscular Volume 97, Mean Corpuscular Hemoglobin 33.4H, Mean Corpuscular Hemoglobin Concent 34.4, Red Cell Distribution Width 13.1, Platelet Count 149L, Mean Platelet Volume 6.5, Neutrophils (%) (Auto) 41.0L, Lymphocytes (%) (Auto) 45.7H, Monocytes (%) (Auto) 9.3, Eosinophils (%) (Auto) 2.7, Basophils (%) (Auto ) 1.3, Sodium Level 140, Potassium Level 4.1, Chloride Level 105, Carbon Dioxide Level 28, Anion Gap 7, Blood Urea Nitrogen 11, Creatinine 0.8, Estimat Glomerular Filtration Rate , Glucose Level 64L, Calcium Level 9.0 Height (Feet): 5 Height (Inches): 2.00 Weight (Pounds): 85 Objective Gen: NAD, A+O x2 Head: normocephalic, atraumatic Eyes: bilateral eye normal inspection ENT: hearing grossly normal Neck: full range of motion Respiratory: chest non-tender, lungs clear Cardiovascular: regular rate, rhythm Gastrointestinal: normal bowel sounds, non tender Rectal: deferred Genitourinary: normal inspection Musculoskeletal: back normal, gait/station normal, nt Psychiatric: judgement/insight normal Skin: normal color, no rash, warm/dry, well hydrated Dillon Calhoun MD Apr 25, 2018 18:59
--- NOTE | 2018-04-25 19:31 | NUR ---
NURSE NOTES: Report given to BRYAN Caldwell at [facility]
--- NOTE | 2018-04-25 19:32 | NUR ---
HAND-OFF: Report given to Rickey ADAMS.
--- NOTE | 2018-04-25 19:32 | NUR ---
NURSE NOTES: Received patient on bed awake, no s/s of any distress, IV line patent and intact, bed in low position and locked, for dc to [facility], awaiting for the ambulance, bed in low position and locked, will continue to monitor.
[2018-04-25 20:00] VITALS: BP 125/60
--- NOTE | 2018-04-25 21:05 | NUR ---
NURSE NOTES: Patient discharged to [facility], vs stable, belongings checked and verified. Endorsed to EMT.
--- NOTE | 2018-04-26 12:58 | Discharge Summary ---
Discharge Summary Discharge Summary _ DATE OF ADMISSION: 04/17/2018 DATE OF DISCHARGE: 04/25/2018 DISCHARGED BY: Dr. Viveros REASON FOR ADMISSION: 87 years old female with past medical history of diabetes, dementia, presented to emergency department post syncopal episode. Patient was brought by paramedics. Per paramedics, patient had syncopal episode , while sitting in the toilet. Syncopal episode was witnessed by daughter , who was with the patient during the episode. She reported that patient passed out , and she assisted patient to the ground. Upon arrival patient could not recall what happened to her. She denied chest pain or shortness of breath . She felt thirsty. She denied fever and chills. Upon evaluation vital signs were stable. Laboratory workup revealed no leukocytosis , stable hemoglobin and hematocrit. Sodium 149. BUN 33, creatinine 1.3. Glucose 114. Stable LFT. CK 44. Troponin with mild elevation 0.164. EKG revealed normal sinus rhythm no acute ischemic changes. Pro BNP 04/16/2002. Albumin 3.4. Urinalysis revealed no evidence of UTI. Chest x-ray revealed no acute cardiopulmonary pathology. CT of the head revealed no acute intracranial pathology Patient was admitted for further management. CONSULTANTS: sonography technician Dr. Cordova pulmonary Dr. Veliz ID specialist Dr. Rizzo waterproof bag sewer Dr. Mullen home mission worker/oncologist Dr. Calhoun psychiatrist Dr. Bajwa [facility]SE: Patient initially admitted to telemetry floor. Cardiology and pulmonology closely followed. Per cardiology, troponin levels were flat. EKG revealed no acute ischemic changes. Patient denied chest pain. Echocardiogram revealed preserved ejection fraction of 55% with mild left ventricular hypertrophy. No evidence of wall motion abnormality. Right ventricular systolic pressure of 44 consistent with mild pulmonary hypertension. Patient subsequently undergone myocardial perfusion stress test, which revealed no findings to suggest ischemia at level achieved. Post stress calculated ejection fraction was 52%. Patient was continued on antiplatelet therapy with aspirin. Patient undergone interrogation of pacemaker, which revealed normal functioning and battery life for additional 6 years. Per sonography technician, syncope was likely vasovagal since it happened when she was in the toilet. Patient had many SVT episodes and started on Cardizem. Blood pressure was managed with Cardizem and remained stable. Sinus tachycardia resolved. Battery Container Finishing Hand followed. Supplemental oxygen provided as needed to keep pulse oximetry above 92%. Pulse oximetry was stable on room air. Chest x-ray, as mentioned above revealed no acute cardiopulmonary pathology. DVT prophylaxis provided. Pulmonary toilet with bronchodilator was on standby as needed. Renal parameters and electrolytes were closely monitored. Electrolytes corrected as needed. Nephrotoxins were avoided. GI prophylaxis provided. Prior to discharge, BUN from 33 down to 11 and creatinine from 1.3 down to 0.8. Acute kidney injury was likely due to dehydration. Syncope was possibly due to dehydration versus vagal. Hepatitis panel was negative. HIV test was nonreactive. Athletic Coordinator followed for coagulopathy. Abdominal ultrasound revealed cholelithiasis, but no dilated bile ducts. Mixing study did not correct PTT. Per home mission worker , planning at new place to send for lupus anticoagulant/will follow the new location. Infectious disease specialist followed. Patient had mild leukocytosis which resolved, probably reactive, no infectious process. No evidence of UTI, no evidence of pneumonia. Infectious disease doctor recommended to monitor patient off antibiotics. Psychiatrist followed. Psychiatric medication regimen was optimized as per psychiatrist. Patient was provided with cognitive behavioral therapy.. Patient was working with physical therapist. Physical therapist recommended to continue inpatient physical treatment at rehabilitation facility. Fall precautions were maintained. Poor nutritional assessment patient was at high risk for malnutrition. Special Events Driver recommendations implemented in plan of care. Patient clinically stabilized and was ready for transfer to [facility] to acute rehabilitation unit for further rehabilitation. FINAL DIAGNOSES: Syncopal episode likely due to dehydration versus vagal Acute kidney injury likely due to dehydration resolved Acute on chronic encephalopathy ( probably due to dehydration ) Troponin elevation Hypertension Episodes of SVT Diabetes mellitus Dementia Hypernatremia 2 to dehydration - resolved Pacemaker Major depressive disorder, mild recurrent, with psychotic feature DISCHARGE MEDICATIONS: See Medication Reconciliation list. DISCHARGE INSTRUCTIONS: Patient was discharged to [facility] to acute rehabilitation unit. Follow-up with medical doctor at the facility. I have been assigned to dictate discharge summary for this account. I was not involved in the patient's management. Ariane Zelaya NP Apr 26, 2018 12:58
--- NOTE | 2018-04-28 21:05 | Cardiology Report ---
APPROVED REPORT EKG Measurement Heart [id number] Sinus rhythm with short VA Low voltage QRS Nonspecific T wave abnormality Abnormal ECG
== END 2018-04-25 21:05 | disposition short-term general hospital (02) | DRG 683 ==
LOC: EDBD 01:44 → EMR 02:09 → 2E 03:00 → EDBEDREQ 03:43 → 2E 04-18 05:00 → 4E 04-23 06:47
DX: N17.9 Acute kidney failure, unspecified (principal); G93.40 Encephalopathy, unspecified; E87.0 Hyperosmolality and hypernatremia; I47.1 Supraventricular tachycardia; F33.0 Major depressive disorder, recurrent, mild; E86.0 Dehydration; E11.9 Type 2 diabetes mellitus without complications; R55 Syncope and collapse; Z88.0 Allergy status to penicillin; F03.90 Unspecified dementia, unspecified severity, without behavioral disturbance, psychotic disturbance, mood disturbance, and anxiety; R74.8 Abnormal levels of other serum enzymes; Z95.0 Presence of cardiac pacemaker; Z79.01 Long term (current) use of anticoagulants; D69.6 Thrombocytopenia, unspecified; D75.1 Secondary polycythemia; I10 Essential (primary) hypertension
CPT/HCPCS: 36415; 70450; 71045; 76700; 78452; 80048; 80053; 80061; 80076; 81003; 82550; 82553; 82607; 82746; 82977; 83036; 83735; 83880; 84100; 84443; 84484; 84550; 85025; 85610; 85730; 86140; 86703; 86705; 86709; 86803; 87340; 93005; 93017; 93306; 93880; 94664; 96360; 99285; J2785